=== PATIENT | male | born 1980 | race Caucasian/White ===

== ENCOUNTER 2017-10-22 14:51 | Emergency (ER) | payer MEDICARE, OTHER ==
[2017-10-22 17:10] LABS: GLUCOSE ISTAT 121 mg/dL (70-99); HEMATOCRIT ISTAT 40 % (37-52); POTASSIUM ISTAT 5.1 mmol/L (3.5-5.0); SODIUM ISTAT 137 mmol/L (135-145); TOT CO2 ISTAT 26 mmol/L (23-32)
== END 2017-10-22 17:35 | disposition home or self-care (01) ==
LOC: ER 14:51
DX: J06.9 Acute upper respiratory infection, unspecified (principal); B34.9 Viral infection, unspecified (principal); B97.89 Other viral agents as the cause of diseases classified elsewhere; E78.00 Pure hypercholesterolemia, unspecified; I12.0 Hypertensive chronic kidney disease with stage 5 chronic kidney disease or end stage renal disease; E11.22 Type 2 diabetes mellitus with diabetic chronic kidney disease; N18.6 End stage renal disease; Z99.2 Dependence on renal dialysis; Z91.041 Radiographic dye allergy status
CPT/HCPCS: 36415; 80047; 85014; 85018; 93005; 99283-25

== ENCOUNTER 2018-05-12 10:45 | Inpatient (IN) | payer MEDICARE, OTHER ==
[2018-05-12 11:05] LABS: POC GLUCOSE 201 mg/dL (70-99)
[2018-05-12] MEDS: ONDANSETRON PF 4 MG/2 ML VIAL. IV (11:54)
[2018-05-12] MEDS: fentaNYL PF VIAL 100 MCG/2 ML VIAL IV (11:56)
[2018-05-12 12:06] LABS: BASO # 0.1 x10^3/uL (0.0-0.2); BASO % 0 % (0-3); EOS # 0.2 x10^3/uL (0.0-0.7); EOS % 1 % (0-3); HEMATOCRIT 21.1 % (39.0-53.0); HEMOGLOBIN 7.2 g/dL (13.0-17.5); LYMPH # 1.2 x10^3/uL (1.0-4.8); LYMPH % 8 % (24-48); MEAN CORPUSCULAR HEMOGLOBIN 31 pg (25-35); MEAN CORPUSCULAR HGB CONC 34 g/dL (31-37); MEAN CORPUSCULAR VOLUME 92 fL (79-100); MONO % 6 % (0-9); NEUT # 13.4 x10^3uL (1.8-7.7); NEUT % 85 % (31-73); PLATELET COUNT 437 x10^3/uL (140-400); RED BLOOD COUNT 2.29 x10^6/uL (4.30-5.70); RED CELL DISTRIBUTION WIDTH 14.1 % (11.5-14.5); WHITE BLOOD COUNT 15.8 x10^3/uL (4.0-11.0)
[2018-05-12 12:11] LABS: ADD MAN DIFF? YES
[2018-05-12 12:19] LABS: ALBUMIN 2.3 g/dL (3.4-5.0); ALBUMIN/GLOBULIN RATIO 0.4 (1.0-1.7); ALK PHOS 106 U/L (46-116); ALT (SGPT) 30 U/L (16-63); ANION GAP 10 (6-14); AST (SGOT) 36 U/L (15-37); BLOOD UREA NITROGEN 23 mg/dL (8-26); BUN/CREATININE RATIO 5 (6-20); CALCIUM 8.7 mg/dL (8.5-10.1); CARBON DIOXIDE 32 mmol/L (21-32); CHLORIDE 94 mmol/L (98-107); CREATININE 4.9 mg/dL (0.7-1.3); GFR 13.6; GLUCOSE 232 mg/dL (70-99); SODIUM 136 mmol/L (136-145); TOTAL BILIRUBIN 0.7 mg/dL (0.2-1.0); TOTAL PROTEIN 8.3 g/dL (6.4-8.2)
[2018-05-12 12:23] LABS: POTASSIUM 2.4 mmol/L (3.5-5.1)
[2018-05-12 12:26] LABS: LACTIC ACID 0.8 mmol/L (0.4-2.0)
[2018-05-12] MEDS ORDERED: PIPERACILLIN/TAZOBACTAM 4.5 GM in IV NORMAL SALINE 100ML 100 ML IV (12:30)
[2018-05-12] MEDS ORDERED: MORPHINE SULFATE 4 MG/ML DISP.SYRIN. IV (12:30)
[2018-05-12] MEDS ORDERED: VANCOMYCIN 1GM IVPB FOR OMNI 250 ML IV (12:30)
[2018-05-12] MEDS ORDERED: ACETAMINOPHEN 325 MG TABLET. PO (12:30)
[2018-05-12] MEDS ORDERED: ONDANSETRON PF 4 MG/2 ML VIAL. IV ×2 (12:30→14:15)
[2018-05-12 12:31] LABS: % BANDS 17 % (0-9); % EOS 1 % (0-5); % LYMPHS 6 % (24-48); % MONOS 4 % (0-10); % SEGS 72 % (35-66); PLT ESTIMATE INCREASED (ADEQUATE)
[2018-05-12] MEDS ORDERED: POTASSIUM CHLORIDE 20 MEQ TABLET.ER. PO (12:45)
[2018-05-12 12:53] LABS: C-REACTIVE PROTEIN 444.8 mg/L (0-3.3)
[2018-05-12] MEDS: POTASSIUM CHLORIDE 10MEQ 100 ML IV ×4 (13:06→19:13)
[2018-05-12] MEDS: PIPERACILLIN/TAZOBACTAM 2.25 GM in IV NORMAL SALINE 50ML 50 ML IV ×2 (13:07→19:13)
[2018-05-12] MEDS ORDERED: PIP/TAZO PER PHARMACY MC (14:15)
[2018-05-12] MEDS ORDERED: hydrALAZINE 20 MG/ML VIAL. IVP (14:15)
[2018-05-12] MEDS ORDERED: DOCUSATE SODIUM 100 MG CAPSULE. PO (14:15)
[2018-05-12] MEDS ORDERED: VANCOMYCIN PER PHARMACY MC (14:30)
[2018-05-12] MEDS: VANCOMYCIN 2 GM in IV NORMAL SALINE 500ML BAG 500 ML IV (15:47)
[2018-05-12] MEDS: METOPROLOL TART IMMED RELEASE 50 MG TABLET. PO ×2 (15:53→21:56)
[2018-05-12] MEDS: ASPIRIN ENTERIC COATED 81 MG TABLET.DR. PO (15:53)
[2018-05-12] MEDS: LISINOPRIL 20 MG TABLET PO (15:53)
[2018-05-12 16:34] LABS: ADD MAN DIFF? NO
[2018-05-12 16:43] LABS: BASO # 0.1 x10^3/uL (0.0-0.2); BASO % 1 % (0-3); EOS # 0.2 x10^3/uL (0.0-0.7); EOS % 1 % (0-3); LYMPH # 1.3 x10^3/uL (1.0-4.8); LYMPH % 10 % (24-48); MEAN CORPUSCULAR HEMOGLOBIN 32 pg (25-35); MEAN CORPUSCULAR HGB CONC 35 g/dL (31-37); MEAN CORPUSCULAR VOLUME 92 fL (79-100); MONO % 7 % (0-9); NEUT # 10.9 x10^3uL (1.8-7.7); NEUT % 81 % (31-73); PLATELET COUNT 410 x10^3/uL (140-400); RED BLOOD COUNT 2.13 x10^6/uL (4.30-5.70); RED CELL DISTRIBUTION WIDTH 14.2 % (11.5-14.5); WHITE BLOOD COUNT 13.4 x10^3/uL (4.0-11.0)
[2018-05-12 16:48] LABS: HEMATOCRIT 19.7 % (39.0-53.0); HEMOGLOBIN 6.8 g/dL (13.0-17.5)
[2018-05-12] MEDS: INSULIN LISPRO 300 UNITS/3 ML INSULN.PEN. SQ ×2 (17:00→17:31)
[2018-05-12 17:32] LABS: POC GLUCOSE 143 mg/dL (70-99)
[2018-05-12] MEDS: POTASSIUM CHLORIDE 20 MEQ TABLET.ER. PO (17:56)
[2018-05-12 20:59] LABS: POC GLUCOSE 271 mg/dL (70-99)
[2018-05-12] MEDS ORDERED: ATORVASTATIN CALCIUM 10 MG TABLET. PO (21:00)
[2018-05-12] MEDS: ATORVASTATIN CALCIUM 10 MG TABLET. PO (21:56)
[2018-05-12] MEDS: HEPARIN PF for SUB-Q USE 5,000 UNIT/0.5 ML VIAL. SQ (22:00)
[2018-05-12] MEDS ORDERED: PIPERACILLIN/TAZOBACTAM 2.25 GM in IV NORMAL SALINE 50ML 50 ML IV (22:00)
[2018-05-12] MEDS: INSULIN GLARGINE 300 UNITS/3 ML INSULN.PEN. SQ (22:02)
[2018-05-12] MEDS: ACETAMINOPHEN 325 MG TABLET. PO (22:33)
[2018-05-12 23:59] LABS: IMMEDIATE SPIN CROSSMATCH 1 2
[2018-05-13 04:48] LABS: ADD MAN DIFF? NO
[2018-05-13 04:54] LABS: BASO # 0.1 x10^3/uL (0.0-0.2); BASO % 1 % (0-3); EOS # 0.3 x10^3/uL (0.0-0.7); EOS % 2 % (0-3); HEMATOCRIT 21.8 % (39.0-53.0); HEMOGLOBIN 7.4 g/dL (13.0-17.5); LYMPH # 1.6 x10^3/uL (1.0-4.8); LYMPH % 12 % (24-48); MEAN CORPUSCULAR HEMOGLOBIN 31 pg (25-35); MEAN CORPUSCULAR HGB CONC 34 g/dL (31-37); MEAN CORPUSCULAR VOLUME 91 fL (79-100); MONO # 0.9 x10^3/uL (0.0-1.1); MONO % 7 % (0-9); NEUT # 10.6 x10^3uL (1.8-7.7); NEUT % 78 % (31-73); PLATELET COUNT 442 x10^3/uL (140-400); RED BLOOD COUNT 2.38 x10^6/uL (4.30-5.70); RED CELL DISTRIBUTION WIDTH 15.1 % (11.5-14.5); WHITE BLOOD COUNT 13.6 x10^3/uL (4.0-11.0)
[2018-05-13 05:07] LABS: ANION GAP 9 (6-14); BLOOD UREA NITROGEN 37 mg/dL (8-26); CARBON DIOXIDE 32 mmol/L (21-32); CHLORIDE 96 mmol/L (98-107); GLUCOSE 233 mg/dL (70-99); POTASSIUM 3.1 mmol/L (3.5-5.1); SODIUM 137 mmol/L (136-145)
[2018-05-13] MEDS: HEPARIN PF for SUB-Q USE 5,000 UNIT/0.5 ML VIAL. SQ ×3 (05:22→22:23)
[2018-05-13 05:27] LABS: % SAT IRON 20 % (15-34); IRON,SERUM 30 ug/dL (65-175)
[2018-05-13 05:34] LABS: FOLATE > 20.00 ng/ml (3.2-20.0)
[2018-05-13 05:34] LABS: VITAMIN-B12 > 2000 pg/mL (247-911)
[2018-05-13] MEDS: PIPERACILLIN/TAZOBACTAM 2.25 GM in IV NORMAL SALINE 50ML 50 ML IV ×4 (05:53→18:02)
[2018-05-13 06:04] LABS: FERRITIN 3566 ng/mL (26-388)
[2018-05-13] MEDS ORDERED: PROPOFOL 0 ML IV (06:41)
[2018-05-13] MEDS ORDERED: LIDOCAINE 2% PF Vial for OR 5 ML VIAL. ×2 (06:41→06:45)
[2018-05-13] MEDS ORDERED: ONDANSETRON PF 4 MG/2 ML VIAL. IV ×2 (06:45→07:00)
[2018-05-13] MEDS ORDERED: PROCHLORPERAZINE 10 MG/2 ML VIAL. IV ×2 (06:45→07:00)
[2018-05-13] MEDS: INSULIN ASPART 100 UNIT/ML 10ML VIAL. SQ (06:45)
[2018-05-13] MEDS ORDERED: fentaNYL PF VIAL 250 MCG/5 ML VIAL (06:45)
[2018-05-13] MEDS ORDERED: fentaNYL PF VIAL 100 MCG/2 ML VIAL IV ×2 (06:45→07:00)
[2018-05-13] MEDS ORDERED: PROPOFOL 20 ML IV ×2 (06:45→07:29)
[2018-05-13] MEDS ORDERED: MORPHINE SULFATE 2 MG/ML DISP.SYRIN. IV ×2 (06:45→07:00)
[2018-05-13] MEDS: IV NORMAL SALINE 500ML BAG 500 ML IV (06:45)
[2018-05-13] MEDS ORDERED: MIDAZOLAM HCL/PF 2 MG/2 ML VIAL. (06:45)
[2018-05-13 06:53] LABS: POC GLUCOSE 217 mg/dL (70-99)
[2018-05-13] MEDS ORDERED: LIDOCAINE 1% PF 2 ML VIAL. ID ×2 (07:00)
[2018-05-13] MEDS: IV RINGERS,LACTATED 1000ML 1,000 ML IV ×2 (07:00)
[2018-05-13] MEDS ORDERED: ONDANSETRON PF 4 MG/2 ML VIAL. (07:29)
[2018-05-13] MEDS ORDERED: ePHEDrine PF IN SALINE 50 MG/5 ML DISP.SYRIN IV (07:30)
[2018-05-13] MEDS ORDERED: PHENYLEPHRINE in 0.9% NACL PF 1 MG/10 ML SYRINGE. IV (07:37)
[2018-05-13] MEDS: BACITRACIN 50,000 UNIT in IV NORMAL SALINE 500ML BAG 500 ML IRR (08:00)
[2018-05-13] MEDS: fentaNYL PF VIAL 100 MCG/2 ML VIAL IV ×2 (09:20→09:39)
[2018-05-13] MEDS: METOPROLOL TART IMMED RELEASE 50 MG TABLET. PO ×2 (10:18→22:17)
[2018-05-13] MEDS: LISINOPRIL 20 MG TABLET PO (10:19)
[2018-05-13] MEDS: ASPIRIN ENTERIC COATED 81 MG TABLET.DR. PO (10:19)
[2018-05-13 10:37] LABS: POC GLUCOSE 184 mg/dL (70-99)
[2018-05-13] MEDS: traMADol 50 MG TABLET PO ×2 (10:43→17:57)
[2018-05-13] MEDS: INSULIN LISPRO 300 UNITS/3 ML INSULN.PEN. SQ ×6 (10:47→17:11)
[2018-05-13 12:29] LABS: POC GLUCOSE 183 mg/dL (70-99)
[2018-05-13] MEDS: VANCOMYCIN PER PHARMACY MC ×2 (14:00)
[2018-05-13] MEDS ORDERED: POTASSIUM CHLORIDE 20 MEQ TABLET.ER. PO (15:30)
[2018-05-13] MEDS: POTASSIUM CHLORIDE 20 MEQ TABLET.ER. PO (15:48)
[2018-05-13 17:05] LABS: POC GLUCOSE 242 mg/dL (70-99)
[2018-05-13] MEDS: MORPHINE SULFATE 2 MG/ML DISP.SYRIN. IV (19:36)
[2018-05-13] MEDS: ATORVASTATIN CALCIUM 10 MG TABLET. PO (19:37)
[2018-05-13] MEDS: LACTOBACILLUS RHAMNOSUS GG 1 CAPSULE. PO (19:37)
[2018-05-13 22:08] LABS: POC GLUCOSE 235 mg/dL (70-99)
[2018-05-13 22:13] LABS: MRSA BY PCR Negative (Negative)
[2018-05-13] MEDS: INSULIN GLARGINE 300 UNITS/3 ML INSULN.PEN. SQ (22:22)
[2018-05-14] MEDS: PIPERACILLIN/TAZOBACTAM 2.25 GM in IV NORMAL SALINE 50ML 50 ML IV ×4 (00:49→18:27)
[2018-05-14 01:13] LABS: HEMOGLOBIN A1C 6.8 % (4.8-5.6)
[2018-05-14] MEDS: VANCOMYCIN RANDOM LEVEL. MC (06:00)
[2018-05-14] MEDS: HEPARIN PF for SUB-Q USE 5,000 UNIT/0.5 ML VIAL. SQ ×3 (06:01→21:34)
[2018-05-14] MEDS: INSULIN LISPRO 300 UNITS/3 ML INSULN.PEN. SQ ×7 (08:00→22:27)
[2018-05-14] MEDS ORDERED: POTASSIUM CHLORIDE 20 MEQ TABLET.ER. PO (08:00)
[2018-05-14 08:31] LABS: ADD MAN DIFF? NO
[2018-05-14] MEDS: LISINOPRIL 20 MG TABLET PO (08:35)
[2018-05-14] MEDS: ASPIRIN ENTERIC COATED 81 MG TABLET.DR. PO (08:35)
[2018-05-14] MEDS: METOPROLOL TART IMMED RELEASE 50 MG TABLET. PO ×2 (08:35→21:33)
[2018-05-14] MEDS: LACTOBACILLUS RHAMNOSUS GG 1 CAPSULE. PO ×2 (08:35→21:32)
[2018-05-14 08:45] LABS: BASO # 0.1 x10^3/uL (0.0-0.2); BASO % 1 % (0-3); EOS # 0.3 x10^3/uL (0.0-0.7); EOS % 3 % (0-3); HEMATOCRIT 24.3 % (39.0-53.0); HEMOGLOBIN 8.4 g/dL (13.0-17.5); LYMPH # 1.2 x10^3/uL (1.0-4.8); LYMPH % 11 % (24-48); MEAN CORPUSCULAR HEMOGLOBIN 32 pg (25-35); MEAN CORPUSCULAR HGB CONC 34 g/dL (31-37); MEAN CORPUSCULAR VOLUME 93 fL (79-100); MONO # 0.7 x10^3/uL (0.0-1.1); MONO % 6 % (0-9); NEUT # 8.8 x10^3uL (1.8-7.7); NEUT % 79 % (31-73); PLATELET COUNT 574 x10^3/uL (140-400); RED BLOOD COUNT 2.63 x10^6/uL (4.30-5.70); RED CELL DISTRIBUTION WIDTH 15.8 % (11.5-14.5); WHITE BLOOD COUNT 11.1 x10^3/uL (4.0-11.0)
[2018-05-14 08:46] LABS: POC GLUCOSE 257 mg/dL (70-99)
[2018-05-14 09:04] LABS: ALBUMIN 1.9 g/dL (3.4-5.0); ALBUMIN/GLOBULIN RATIO 0.3 (1.0-1.7); ALK PHOS 96 U/L (46-116); ALT (SGPT) 23 U/L (16-63); ANION GAP 14 (6-14); AST (SGOT) 30 U/L (15-37); BLOOD UREA NITROGEN 49 mg/dL (8-26); BUN/CREATININE RATIO 5 (6-20); CALCIUM 8.6 mg/dL (8.5-10.1); CARBON DIOXIDE 28 mmol/L (21-32); CHLORIDE 95 mmol/L (98-107); CREATININE 9.2 mg/dL (0.7-1.3); GFR 6.6; GLUCOSE 237 mg/dL (70-99); MAGNESIUM 2.1 mg/dL (1.8-2.4); POTASSIUM 3.6 mmol/L (3.5-5.1); SODIUM 137 mmol/L (136-145); TOTAL BILIRUBIN 0.7 mg/dL (0.2-1.0); TOTAL PROTEIN 7.6 g/dL (6.4-8.2)
[2018-05-14] MEDS ORDERED: IV NORMAL SALINE 1000ML BAG 1,000 ML IV ×2 (10:13)
[2018-05-14] MEDS ORDERED: DIALYSIS PATIENT. MC ×2 (10:15)
[2018-05-14] MEDS ORDERED: ALBUMIN HUMAN 25% 200 ML IV (10:15)
[2018-05-14 11:23] LABS: POC GLUCOSE 211 mg/dL (70-99)
[2018-05-14] MEDS: VANCOMYCIN PER PHARMACY MC (12:52)
[2018-05-14 14:18] LABS: POC GLUCOSE 134 mg/dL (70-99)
[2018-05-14] MEDS: SEVELAMER CARBONATE 800 MG TABLET. PO ×2 (14:19→17:05)
[2018-05-14] MEDS: FAMOTIDINE 20 MG TABLET. PO ×2 (14:19→21:32)
[2018-05-14] MEDS: DULoxetine HCL 30 MG CAPSULE.DR PO (14:19)
[2018-05-14] MEDS: FENOFIBRATE,MICRONIZED 134 MG CAPSULE PO (14:19)
[2018-05-14 20:18] LABS: POC GLUCOSE 239 mg/dL (70-99)
[2018-05-14 20:38] LABS: POC GLUCOSE 223 mg/dL (70-99)
[2018-05-14] MEDS ORDERED: CARVEDILOL 3.125 MG TABLET. PO (21:00)
[2018-05-14] MEDS: ATORVASTATIN CALCIUM 40 MG TABLET. PO (21:32)
[2018-05-14] MEDS: INSULIN GLARGINE 300 UNITS/3 ML INSULN.PEN. SQ (21:36)
[2018-05-15] MEDS: PIPERACILLIN/TAZOBACTAM 2.25 GM in IV NORMAL SALINE 50ML 50 ML IV ×5 (00:17→23:07)
[2018-05-15] MEDS: HEPARIN PF for SUB-Q USE 5,000 UNIT/0.5 ML VIAL. SQ ×3 (05:54→23:11)
[2018-05-15 07:15] LABS: POC GLUCOSE 203 mg/dL (70-99)
[2018-05-15] MEDS: VANCOMYCIN PER PHARMACY MC (08:23)
[2018-05-15] MEDS: SEVELAMER CARBONATE 800 MG TABLET. PO ×3 (08:39→17:09)
[2018-05-15] MEDS: FAMOTIDINE 20 MG TABLET. PO ×2 (08:40→20:19)
[2018-05-15] MEDS: METOPROLOL TART IMMED RELEASE 50 MG TABLET. PO ×2 (08:40→20:21)
[2018-05-15] MEDS: FENOFIBRATE,MICRONIZED 134 MG CAPSULE PO (08:40)
[2018-05-15] MEDS: ASPIRIN ENTERIC COATED 81 MG TABLET.DR. PO (08:40)
[2018-05-15] MEDS: DULoxetine HCL 30 MG CAPSULE.DR PO (08:40)
[2018-05-15] MEDS: LACTOBACILLUS RHAMNOSUS GG 1 CAPSULE. PO ×2 (08:40→20:19)
[2018-05-15] MEDS: LISINOPRIL 20 MG TABLET PO (08:41)
[2018-05-15] MEDS: INSULIN LISPRO 300 UNITS/3 ML INSULN.PEN. SQ ×6 (08:48→16:51)
[2018-05-15 09:16] LABS: FECAL OB PT NEGATIVE (NEG); NEG OBC FOB NEG; POS OBC FOB POS
[2018-05-15 11:26] LABS: POC GLUCOSE 219 mg/dL (70-99)
[2018-05-15 16:51] LABS: POC GLUCOSE 59 mg/dL (70-99)
[2018-05-15 17:14] LABS: POC GLUCOSE 99 mg/dL (70-99)
[2018-05-15 20:17] LABS: POC GLUCOSE 184 mg/dL (70-99)
[2018-05-15] MEDS: ATORVASTATIN CALCIUM 40 MG TABLET. PO (20:19)
[2018-05-15] MEDS: INSULIN GLARGINE 300 UNITS/3 ML INSULN.PEN. SQ (20:26)
[2018-05-16] MEDS: PIPERACILLIN/TAZOBACTAM 2.25 GM in IV NORMAL SALINE 50ML 50 ML IV ×4 (06:24→23:59)
[2018-05-16] MEDS: HEPARIN PF for SUB-Q USE 5,000 UNIT/0.5 ML VIAL. SQ ×3 (06:28→21:17)
[2018-05-16 07:42] LABS: POC GLUCOSE 145 mg/dL (70-99)
[2018-05-16] MEDS: INSULIN LISPRO 300 UNITS/3 ML INSULN.PEN. SQ ×6 (08:00→16:56)
[2018-05-16] MEDS: SEVELAMER CARBONATE 800 MG TABLET. PO ×3 (08:21→16:53)
[2018-05-16] MEDS: DULoxetine HCL 30 MG CAPSULE.DR PO (08:21)
[2018-05-16] MEDS: METOPROLOL TART IMMED RELEASE 50 MG TABLET. PO ×2 (08:23→21:12)
[2018-05-16] MEDS: FENOFIBRATE,MICRONIZED 134 MG CAPSULE PO (08:23)
[2018-05-16] MEDS: LACTOBACILLUS RHAMNOSUS GG 1 CAPSULE. PO ×2 (08:24→21:12)
[2018-05-16] MEDS: ASPIRIN ENTERIC COATED 81 MG TABLET.DR. PO (08:24)
[2018-05-16] MEDS: LISINOPRIL 20 MG TABLET PO (08:24)
[2018-05-16] MEDS: FAMOTIDINE 20 MG TABLET. PO ×2 (08:24→21:11)
[2018-05-16 11:15] LABS: POC GLUCOSE 141 mg/dL (70-99)
[2018-05-16 12:08] LABS: ADD MAN DIFF? NO
[2018-05-16 12:16] LABS: BASO # 0.1 x10^3/uL (0.0-0.2); BASO % 1 % (0-3); EOS # 0.4 x10^3/uL (0.0-0.7); EOS % 3 % (0-3); HEMATOCRIT 24.1 % (39.0-53.0); HEMOGLOBIN 8.3 g/dL (13.0-17.5); LYMPH # 1.7 x10^3/uL (1.0-4.8); LYMPH % 15 % (24-48); MEAN CORPUSCULAR HEMOGLOBIN 32 pg (25-35); MEAN CORPUSCULAR HGB CONC 35 g/dL (31-37); MEAN CORPUSCULAR VOLUME 93 fL (79-100); MONO # 0.8 x10^3/uL (0.0-1.1); MONO % 7 % (0-9); NEUT # 8.3 x10^3uL (1.8-7.7); NEUT % 73 % (31-73); PLATELET COUNT 701 x10^3/uL (140-400); RED CELL DISTRIBUTION WIDTH 15.6 % (11.5-14.5); WHITE BLOOD COUNT 11.3 x10^3/uL (4.0-11.0)
[2018-05-16 12:29] LABS: ANION GAP 13 (6-14); BLOOD UREA NITROGEN 49 mg/dL (8-26); CALCIUM 9.4 mg/dL (8.5-10.1); CARBON DIOXIDE 30 mmol/L (21-32); CHLORIDE 97 mmol/L (98-107); CREATININE 9.3 mg/dL (0.7-1.3); GFR 6.5; GLUCOSE 136 mg/dL (70-99); POTASSIUM 3.9 mmol/L (3.5-5.1); SODIUM 140 mmol/L (136-145)
[2018-05-16] MEDS: VANCOMYCIN PER PHARMACY MC (13:15)
[2018-05-16] MEDS: CITALOPRAM 10 MG TABLET. PO (16:16)
[2018-05-16 16:29] LABS: POC GLUCOSE 179 mg/dL (70-99)
[2018-05-16 20:46] LABS: POC GLUCOSE 139 mg/dL (70-99)
[2018-05-16] MEDS: ATORVASTATIN CALCIUM 40 MG TABLET. PO (21:12)
[2018-05-16] MEDS: INSULIN GLARGINE 300 UNITS/3 ML INSULN.PEN. SQ (21:18)
[2018-05-17] MEDS: PIPERACILLIN/TAZOBACTAM 2.25 GM in IV NORMAL SALINE 50ML 50 ML IV ×3 (05:47→18:24)
[2018-05-17] MEDS: HEPARIN PF for SUB-Q USE 5,000 UNIT/0.5 ML VIAL. SQ ×3 (05:53→22:06)
[2018-05-17] MEDS ORDERED: DIALYSIS PATIENT. MC ×2 (07:00)
[2018-05-17] MEDS: INSULIN LISPRO 300 UNITS/3 ML INSULN.PEN. SQ ×6 (07:30→17:11)
[2018-05-17 07:50] LABS: POC GLUCOSE 130 mg/dL (70-99)
[2018-05-17] MEDS: SEVELAMER CARBONATE 800 MG TABLET. PO ×3 (08:00→17:07)
[2018-05-17] MEDS: METOPROLOL TART IMMED RELEASE 50 MG TABLET. PO ×2 (09:00→21:50)
[2018-05-17] MEDS: LISINOPRIL 20 MG TABLET PO (09:00)
[2018-05-17 13:25] LABS: POC GLUCOSE 131 mg/dL (70-99)
[2018-05-17] MEDS: VANCOMYCIN PER PHARMACY MC (13:39)
[2018-05-17] MEDS: LACTOBACILLUS RHAMNOSUS GG 1 CAPSULE. PO ×2 (15:08→21:50)
[2018-05-17] MEDS: ASPIRIN ENTERIC COATED 81 MG TABLET.DR. PO (15:08)
[2018-05-17] MEDS: FAMOTIDINE 20 MG TABLET. PO ×2 (15:08→21:50)
[2018-05-17] MEDS: FENOFIBRATE,MICRONIZED 134 MG CAPSULE PO (15:09)
[2018-05-17] MEDS: DULoxetine HCL 30 MG CAPSULE.DR PO (15:10)
[2018-05-17] MEDS: CITALOPRAM 10 MG TABLET. PO (15:33)
[2018-05-17 16:07] LABS: POC GLUCOSE 185 mg/dL (70-99)
[2018-05-17] MEDS: VANCOMYCIN 500 MG in IV NORMAL SALINE 100ML 100 ML IV (17:06)
[2018-05-17 18:15] LABS: C DIFF BY PCR Negative (Negative)
[2018-05-17 21:09] LABS: POC GLUCOSE 155 mg/dL (70-99)
[2018-05-17] MEDS: ATORVASTATIN CALCIUM 40 MG TABLET. PO (21:50)
[2018-05-17] MEDS: INSULIN GLARGINE 300 UNITS/3 ML INSULN.PEN. SQ (22:04)
[2018-05-18] MEDS: PIPERACILLIN/TAZOBACTAM 2.25 GM in IV NORMAL SALINE 50ML 50 ML IV ×5 (00:27→23:44)
[2018-05-18] MEDS: HEPARIN PF for SUB-Q USE 5,000 UNIT/0.5 ML VIAL. SQ ×3 (05:52→21:36)
[2018-05-18 07:42] LABS: POC GLUCOSE 112 mg/dL (70-99)
[2018-05-18] MEDS: INSULIN LISPRO 300 UNITS/3 ML INSULN.PEN. SQ ×6 (08:00→18:10)
[2018-05-18] MEDS: FENOFIBRATE,MICRONIZED 134 MG CAPSULE PO (08:35)
[2018-05-18] MEDS: CITALOPRAM 10 MG TABLET. PO (08:35)
[2018-05-18] MEDS: FAMOTIDINE 20 MG TABLET. PO ×2 (08:35→21:27)
[2018-05-18] MEDS: ASPIRIN ENTERIC COATED 81 MG TABLET.DR. PO (08:36)
[2018-05-18] MEDS: LACTOBACILLUS RHAMNOSUS GG 1 CAPSULE. PO ×2 (08:36→21:28)
[2018-05-18] MEDS: DULoxetine HCL 30 MG CAPSULE.DR PO (08:36)
[2018-05-18] MEDS: SEVELAMER CARBONATE 800 MG TABLET. PO ×3 (08:36→17:56)
[2018-05-18] MEDS: LISINOPRIL 20 MG TABLET PO (08:37)
[2018-05-18] MEDS: METOPROLOL TART IMMED RELEASE 50 MG TABLET. PO ×2 (08:57→21:28)
[2018-05-18] MEDS: DEXTROSE 50% 25 GM / 50ML DISP.SYRIN. IV (11:32)
[2018-05-18] MEDS: GLUCAGON,HUMAN RECOMBINANT 1 MG/ML VIAL. IM (11:55)
[2018-05-18 12:43] LABS: POC GLUCOSE 102 mg/dL (70-99)
[2018-05-18 13:06] LABS: GLUCOSE 104 mg/dL (70-99)
[2018-05-18] MEDS: traMADol 50 MG TABLET PO (13:30)
[2018-05-18 16:00] LABS: POC GLUCOSE 43 mg/dL (70-99)
[2018-05-18 16:00] LABS: POC GLUCOSE 45 mg/dL (70-99)
[2018-05-18 21:03] LABS: POC GLUCOSE 253 mg/dL (70-99)
[2018-05-18 21:03] LABS: POC GLUCOSE 183 mg/dL (70-99)
[2018-05-18] MEDS: ATORVASTATIN CALCIUM 40 MG TABLET. PO (21:28)
[2018-05-18] MEDS: INSULIN GLARGINE 300 UNITS/3 ML INSULN.PEN. SQ (21:35)
[2018-05-19] MEDS: PIPERACILLIN/TAZOBACTAM 2.25 GM in IV NORMAL SALINE 50ML 50 ML IV ×4 (06:16→23:53)
[2018-05-19] MEDS: HEPARIN PF for SUB-Q USE 5,000 UNIT/0.5 ML VIAL. SQ ×3 (06:23→21:46)
[2018-05-19] MEDS: INSULIN LISPRO 300 UNITS/3 ML INSULN.PEN. SQ ×6 (07:30→17:00)
[2018-05-19] MEDS: FENOFIBRATE,MICRONIZED 134 MG CAPSULE PO (08:49)
[2018-05-19] MEDS: FAMOTIDINE 20 MG TABLET. PO ×2 (08:49→21:41)
[2018-05-19] MEDS: LISINOPRIL 20 MG TABLET PO (08:50)
[2018-05-19] MEDS: METOPROLOL TART IMMED RELEASE 50 MG TABLET. PO ×2 (08:50→21:46)
[2018-05-19] MEDS: SEVELAMER CARBONATE 800 MG TABLET. PO ×3 (08:50→17:00)
[2018-05-19] MEDS: CITALOPRAM 10 MG TABLET. PO (08:50)
[2018-05-19] MEDS: ASPIRIN ENTERIC COATED 81 MG TABLET.DR. PO (08:51)
[2018-05-19] MEDS: DULoxetine HCL 30 MG CAPSULE.DR PO (08:51)
[2018-05-19] MEDS: LACTOBACILLUS RHAMNOSUS GG 1 CAPSULE. PO ×2 (08:51→21:41)
[2018-05-19 09:38] LABS: ANION GAP 14 (6-14); BLOOD UREA NITROGEN 54 mg/dL (8-26); CALCIUM 9.6 mg/dL (8.5-10.1); CARBON DIOXIDE 27 mmol/L (21-32); CHLORIDE 102 mmol/L (98-107); CREATININE 9.2 mg/dL (0.7-1.3); GFR 6.6; GLUCOSE 86 mg/dL (70-99); POTASSIUM 3.9 mmol/L (3.5-5.1); SODIUM 143 mmol/L (136-145)
[2018-05-19] MEDS ORDERED: IV NORMAL SALINE 1000ML BAG 1,000 ML IV ×2 (10:06)
[2018-05-19] MEDS ORDERED: LABETALOL 20 MG/4 ML DISP.SYRIN. IVP (10:15)
[2018-05-19] MEDS ORDERED: DIALYSIS PATIENT. MC ×2 (10:15)
[2018-05-19 11:16] LABS: POC GLUCOSE 78 mg/dL (70-99)
[2018-05-19 11:16] LABS: POC GLUCOSE 90 mg/dL (70-99)
[2018-05-19 18:57] LABS: POC GLUCOSE 144 mg/dL (70-99)
[2018-05-19] MEDS: ATORVASTATIN CALCIUM 40 MG TABLET. PO (21:41)
[2018-05-19] MEDS: INSULIN GLARGINE 300 UNITS/3 ML INSULN.PEN. SQ (21:45)
[2018-05-20] MEDS: PIPERACILLIN/TAZOBACTAM 2.25 GM in IV NORMAL SALINE 50ML 50 ML IV ×2 (05:58→11:55)
[2018-05-20] MEDS: HEPARIN PF for SUB-Q USE 5,000 UNIT/0.5 ML VIAL. SQ ×2 (06:07→14:00)
[2018-05-20 06:28] LABS: POC GLUCOSE 236 mg/dL (70-99)
[2018-05-20 07:50] LABS: POC GLUCOSE 117 mg/dL (70-99)
[2018-05-20] MEDS: INSULIN LISPRO 300 UNITS/3 ML INSULN.PEN. SQ ×4 (08:00→12:01)
[2018-05-20] MEDS: DULoxetine HCL 30 MG CAPSULE.DR PO (08:18)
[2018-05-20] MEDS: SEVELAMER CARBONATE 800 MG TABLET. PO ×2 (08:18→11:55)
[2018-05-20] MEDS: FENOFIBRATE,MICRONIZED 134 MG CAPSULE PO (08:18)
[2018-05-20] MEDS: LISINOPRIL 20 MG TABLET PO (08:18)
[2018-05-20] MEDS: CITALOPRAM 10 MG TABLET. PO (08:19)
[2018-05-20] MEDS: METOPROLOL TART IMMED RELEASE 50 MG TABLET. PO (08:19)
[2018-05-20] MEDS: ASPIRIN ENTERIC COATED 81 MG TABLET.DR. PO (08:19)
[2018-05-20] MEDS: FAMOTIDINE 20 MG TABLET. PO (08:19)
[2018-05-20] MEDS: LACTOBACILLUS RHAMNOSUS GG 1 CAPSULE. PO (08:19)
[2018-05-20 11:20] LABS: POC GLUCOSE 133 mg/dL (70-99)
[2018-05-20 23:13] LABS: MRSA BY PCR Negative (Negative)
[2018-05-21] MEDS ORDERED: ERGOCALCIFEROL (VITAMIN D2) 50,000 UNIT CAPSULE. PO (09:00)
== END 2018-05-20 14:10 | DRG 853 ==
LOC: 5 SOUTH 13:42 → ER 10:45 → 5 SOUTH 12:19
PROVIDERS: Internal Medicine
PROC: 30233N1 Transfusion of Nonautologous Red Blood Cells into Peripheral Vein, Percutaneous Approach (ICD-10-PCS; principal; 2018-05-13 06:59)
PROC: 5A1D70Z Performance of Urinary Filtration, Intermittent, Less than 6 Hours Per Day (ICD-10-PCS; 2018-05-13 06:59)
PROC: 5A1D70Z Performance of Urinary Filtration, Intermittent, Less than 6 Hours Per Day (ICD-10-PCS; 2018-05-13 06:59)
PROC: 5A1D70Z Performance of Urinary Filtration, Intermittent, Less than 6 Hours Per Day (ICD-10-PCS; 2018-05-13 06:59)
PROC: 0Y6J0Z3 Detachment at Left Lower Leg, Low, Open Approach (ICD-10-PCS; 2018-05-13 06:59)
DX: A41.9 Sepsis, unspecified organism (principal); N18.6 End stage renal disease; A48.0 Gas gangrene; M86.9 Osteomyelitis, unspecified; E44.0 Moderate protein-calorie malnutrition; I12.0 Hypertensive chronic kidney disease with stage 5 chronic kidney disease or end stage renal disease; E78.00 Pure hypercholesterolemia, unspecified; E10.22 Type 1 diabetes mellitus with diabetic chronic kidney disease; E10.621 Type 1 diabetes mellitus with foot ulcer; E10.628 Type 1 diabetes mellitus with other skin complications; E10.65 Type 1 diabetes mellitus with hyperglycemia; E10.69 Type 1 diabetes mellitus with other specified complication; Z99.2 Dependence on renal dialysis; E87.6 Hypokalemia; Z82.49 Family history of ischemic heart disease and other diseases of the circulatory system; Z89.422 Acquired absence of other left toe(s); E78.5 Hyperlipidemia, unspecified; D63.1 Anemia in chronic kidney disease; L08.9 Local infection of the skin and subcutaneous tissue, unspecified; E10.610 Type 1 diabetes mellitus with diabetic neuropathic arthropathy; Z89.512 Acquired absence of left leg below knee; E10.51 Type 1 diabetes mellitus with diabetic peripheral angiopathy without gangrene; F32.9 Major depressive disorder, single episode, unspecified; L97.529 Non-pressure chronic ulcer of other part of left foot with unspecified severity; Z79.4 Long term (current) use of insulin; Z79.82 Long term (current) use of aspirin; Z79.899 Other long term (current) drug therapy; Z89.612 Acquired absence of left leg above knee; Z68.27 Body mass index [BMI] 27.0-27.9, adult
CPT/HCPCS: 36415; 73610; 73630; 80048; 80053; 80202; 82274; 82607; 82728; 82746; 82947; 82962; 83036; 83540; 83550; 83605; 83735; 85007; 85025; 86140; 86850; 86900; 86901; 86920; 87040; 87205; 87324; 87641; 88307; 88311; 96365; 96375; 97110-GO; 97110-GP; 97116-GP; 97162-GP; 97166-GO; 97530-GO; 97530-GP; 97535-GO; 99285; 99285-25; A7015; J1610; J1815; J2001; J2250; J2270; J2370; J2405; J2543; J2704; J3010; J3370; J3480; J3490; J7040; J7042; P9016

== ENCOUNTER 2018-12-03 09:35 | Inpatient (IN) | payer MEDICARE, MEDICAID ==
[~2018-12-03] VITALS: Ht 180.3 cm; Wt 92.1 kg
[~2018-12-03 09:35] MED LIST: ASPI-482 PO; ATOR10TA PO; ATOR10TA60 PO; ATOR40TA59 PO; CARV3.1210 PO; DULO60CA6 PO; ERGO500027 PO; FAMO20TA5 PO; FENO145T30 PO; FOLI1CAP5 PO; INSU100C4 SQ; INSU100I17 SQ; INSU100V13 SQ; LISI-130 PO; LISI-334 PO; LISI10TA2 PO; METO25TA4 PO; METO50TA6 PO; SEVE800T9 PO; SULF1TAB24 PO; TAMS0.4C2 PO
--- NOTE | 2018-12-03 09:53 | PHYS DOC ---
Past Medical History Past Medical History: Diabetes-Type I, High Cholesterol, Hypertension, Renal Failure Past Surgical History: Other Additional Past Surgical Histo: left toe amputation,L ARM FISTULA Alcohol Use: Occasionally Drug Use: None Adult General Chief Complaint Chief Complaint: CHEST PAIN HPI HPI Patient is a 38-year-old male who presents with complaint of midsternal and left -sided chest pain that started yesterday and progressively has just gotten worse. He states the pain has been intermittent in nature. He states that pain had started a couple of hours ago while he was in dialysis and just did not get better. He describes pain as sharp and stabbing in nature and states the pain is worsened with deep breathing. He states that nothing improves the pain. He rates pain at an 8 out of 10. He denies any nausea, vomiting or diaphoresis. Pain started while he was at rest. Review of Systems Review of Systems Constitutional: Denies fever or chills [] Respiratory: Denies cough or shortness of breath [] Cardiovascular: No additional information not addressed in HPI [] GI: Denies abdominal pain, nausea, vomiting, or diarrhea [] Musculoskeletal: Denies back pain or joint pain [] Integument: Denies rash or skin lesions [] All other systems were reviewed and found to be within normal limits, except as documented in this note. Current Medications Current Medications Current Medications Medications (Trade) Dose Ordered Sig/Allison Start Time Stop Time Status Last Admin Dose Admin Aspirin (Children'S Aspirin) 324 mg 1X ONCE 12/03/18 10:15 12/03/18 10:16 DC Morphine Sulfate (Morphine Sulfate) 2 mg PRN Q15MIN PRN 12/03/18 10:00 12/03/18 19:00 Nitroglycerin (Nitrostat) 0.4 mg PRN Q5MIN PRN 12/03/18 10:00 12/04/18 09:59 Allergies Allergies Allergies Coded Allergies Type Severity Reaction Last Updated Verified No Known Drug Allergies 10/23/18 No Physical Exam Physical Exam Constitutional: Well developed, well nourished, no acute distress, non-toxic appearance. [] HENT: Normocephalic, atraumatic, bilateral external ears normal, oropharynx moist, no oral exudates, nose normal. [] Eyes: PERRLA, EOMI, conjunctiva normal, no discharge. [] Neck: Normal range of motion, no tenderness, supple, no stridor. [] Cardiovascular: Regular rate and rhythm [] Lungs & Thorax: Bilateral breath sounds clear to auscultation [] Abdomen: Bowel sounds normal, soft, no tenderness. [] Skin: Warm, dry, no erythema, no rash. [] Extremities: No tenderness, no cyanosis, no clubbing, ROM intact, no edema. [] Neurologic: Alert and oriented X 3, no focal deficits noted. [] Current Patient Data Vital Signs Vital Signs Date Time Temp Pulse Resp B/P (MAP) Pulse Ox O2 Delivery O2 Flow Rate FiO2 12/03/18 13:00 82 16 106/57 (73) 99 Room Air 12/03/18 09:35 98.8 98.8 Lab Values Laboratory Tests Test 12/03/18 10:30 12/03/18 10:40 Glucose (Fingerstick) 287 mg/dL (70-99) H White Blood Count 5.9 x10^3/uL (4.0-11.0) Red Blood Count 3.56 x10^6/uL (4.30-5.70) L Hemoglobin 11.4 g/dL (13.0-17.5) L Hematocrit 34.5 % (39.0-53.0) L Mean Corpuscular Volume 97 fL (79-100) Mean Corpuscular Hemoglobin 32 pg (25-35) Mean Corpuscular Hemoglobin Concent 33 g/dL (31-37) Red Cell Distribution Width 14.9 % (11.5-14.5) H Platelet Count 247 x10^3/uL (140-400) Neutrophils (%) (Auto) 65 % (31-73) Lymphocytes (%) (Auto) 23 % (24-48) L Monocytes (%) (Auto) 8 % (0-9) Eosinophils (%) (Auto) 3 % (0-3) Basophils (%) (Auto) 1 % (0-3) Neutrophils # (Auto) 3.8 x10^3uL (1.8-7.7) Lymphocytes # (Auto) 1.3 x10^3/uL (1.0-4.8) Monocytes # (Auto) 0.5 x10^3/uL (0.0-1.1) Eosinophils # (Auto) 0.2 x10^3/uL (0.0-0.7) Basophils # (Auto) 0.1 x10^3/uL (0.0-0.2) Sodium Level 136 mmol/L (136-145) Potassium Level 3.7 mmol/L (3.5-5.1) Chloride Level 96 mmol/L (98-107) L Carbon Dioxide Level 29 mmol/L (21-32) Anion Gap 11 (6-14) Blood Urea Nitrogen 36 mg/dL (8-26) H Creatinine 5.0 mg/dL (0.7-1.3) H Estimated GFR (Cockcroft-Gault) 13.2 BUN/Creatinine Ratio 7 (6-20) Glucose Level 286 mg/dL (70-99) H Calcium Level 9.5 mg/dL (8.5-10.1) Phosphorus Level 4.1 mg/dL (2.6-4.7) Magnesium Level 2.3 mg/dL (1.8-2.4) Total Bilirubin 0.4 mg/dL (0.2-1.0) Aspartate Amino Transferase (AST) 33 U/L (15-37) Alanine Aminotransferase (ALT) 11 U/L (16-63) L Alkaline Phosphatase 157 U/L (46-116) H Troponin I Quantitative 0.032 ng/mL (0.000-0.055) KN-Lfz-B-Type Natriuretic Peptide 1149 pg/mL (0-124) H Total Protein 7.6 g/dL (6.4-8.2) Albumin 3.4 g/dL (3.4-5.0) Albumin/Globulin Ratio 0.8 (1.0-1.7) L Lipase 662 U/L (73-393) H Laboratory Tests 12/03/18 10:40 Laboratory Tests 12/03/18 10:40 EKG EKG [] Interpretation Time: EKG demonstrates regular rate and rhythm with rate of 83. Radiology/Procedures Radiology/Procedures [] Impressions: PORTABLE CHEST 1V History: Chest pain COMPARISON: April 14, 2016 image without report FINDINGS: Heart size is not enlarged. No pneumothorax, infiltrates or pleural effusion. There is a left endovascular stent, paralleling the left clavicle. IMPRESSION: No acute infiltrate identified. Electronically signed by: Deniz Bird MD (12/03/2018 10:52 AM) [facility] Course & Med Decision Making Course & Med Decision Making Pertinent Labs and Imaging studies reviewed. (See chart for details) [] Dragon Disclaimer Dragon Disclaimer This electronic medical record was generated, in whole or in part, using a voice recognition dictation system. Departure Departure Impression: Primary Impression: Chest pain Disposition: HOME, SELF-CARE Admitting Physician: Other Condition: IMPROVED (Dr. Newman) Referrals: UNKNOWN PCP NAME (PCP) Problem Qualifiers Primary Impression: Chest pain Chest pain type: unspecified Qualified Codes: R07.9 - Chest pain, unspecified KELLI PRINCE Jr. DO Dec 03, 2018 09:53
[2018-12-03] MEDS ORDERED: MORPHINE SULFATE 4 MG/ML VIAL. IV/SQ PRN (10:00)
[2018-12-03] MEDS ORDERED: NITROGLYCERIN SUBLINGUAL 0.4 MG BOTTLE OF 25. SL PRN ×2 (10:00→15:00)
[2018-12-03] MEDS ORDERED: ASPIRIN CHEWABLE 81 MG TABLET. PO ONE (10:15)
--- NOTE | 2018-12-03 10:57 | RAD ---
PORTABLE CHEST 1V History: Chest pain COMPARISON: April 14, 2016 image without report FINDINGS: Heart size is not enlarged. No pneumothorax, infiltrates or pleural effusion. There is a left endovascular stent, paralleling the left clavicle. IMPRESSION: No acute infiltrate identified. Electronically signed by: eDniz Bird MD (12/03/2018 10:52 AM) [facility]
[2018-12-03 10:58] LABS: BASO # 0.1 x10^3/uL (0.0-0.2); BASO % 1 % (0-3); EOS # 0.2 x10^3/uL (0.0-0.7); EOS % 3 % (0-3); HEMATOCRIT 34.5 % (39.0-53.0); HEMOGLOBIN 11.4 g/dL (13.0-17.5); LYMPH # 1.3 x10^3/uL (1.0-4.8); LYMPH % 23 % (24-48); MEAN CORPUSCULAR HEMOGLOBIN 32 pg (25-35); MEAN CORPUSCULAR HGB CONC 33 g/dL (31-37); MEAN CORPUSCULAR VOLUME 97 fL (79-100); MONO # 0.5 x10^3/uL (0.0-1.1); MONO % 8 % (0-9); NEUT # 3.8 x10^3uL (1.8-7.7); NEUT % 65 % (31-73); PLATELET COUNT 247 x10^3/uL (140-400); RED BLOOD COUNT 3.56 x10^6/uL (4.30-5.70); RED CELL DISTRIBUTION WIDTH 14.9 % (11.5-14.5); WHITE BLOOD COUNT 5.9 x10^3/uL (4.0-11.0)
[2018-12-03 11:10] LABS: CALCIUM 9.5 mg/dL (8.5-10.1); GFR 13.2; POTASSIUM 3.7 mmol/L (3.5-5.1)
[2018-12-03 11:15] LABS: ALBUMIN 3.4 g/dL (3.4-5.0); ALBUMIN/GLOBULIN RATIO 0.8 (1.0-1.7); MAGNESIUM 2.3 mg/dL (1.8-2.4); PHOSPHORUS 4.1 mg/dL (2.6-4.7); TOTAL BILIRUBIN 0.4 mg/dL (0.2-1.0); TOTAL PROTEIN 7.6 g/dL (6.4-8.2)
[2018-12-03] MEDS ORDERED: ONDANSETRON PF 4 MG/2 ML VIAL. IV PRN ×2 (14:30→15:00)
[2018-12-03] MEDS ORDERED: MORPHINE SULFATE 4 MG/ML VIAL. IV PRN ×2 (14:30→15:00)
[2018-12-03] MEDS ORDERED: MAG HYDROX/ALUMINUM HYD/SIMETH 30 ML ORAL.SUSP PO PRN (15:00)
[2018-12-03] MEDS ORDERED: LACTULOSE 20 GM/30 ML SOLUTION. PO PRN (15:00)
[2018-12-03] MEDS ORDERED: ZOLPIDEM 5 MG TABLET. PO PRN (15:00)
[2018-12-03] MEDS ORDERED: ACETAMINOPHEN 325 MG TABLET. PO PRN (15:00)
[2018-12-03] MEDS ORDERED: C.DIFF MED SCREEN BY RX. MC ONE (16:30)
[2018-12-03] MEDS ORDERED: FOLI1CAP10 PO (16:51)
[2018-12-03 16:52] VITALS: BP 109/68
[2018-12-03] MEDS ORDERED: INSU100V13 SQ (17:28)
[2018-12-03] MEDS: ceFAZolin SODIUM 1 GM in IV DEXTROSE 5% 50 ML IV SCH (17:57)
[2018-12-03] MEDS: SEVELAMER CARBONATE 800 MG TABLET. PO SCH (18:01)
[2018-12-03] MEDS: CARVEDILOL 3.125 MG TABLET. PO SCH (18:01)
[2018-12-03] MEDS: INSULIN LISPRO 300 UNITS/3 ML INSULN.PEN. SQ SCH (18:06)
--- NOTE | 2018-12-03 18:48 | PDOC1 ---
History and Physical Date of Admission Date of Admission 12/03/2017 Identification/Chief Complaint Chief Complaint my chest hurts Problems: (1) Chest pain (2) ESRD on hemodialysis (3) DKA, type 2 Source Source: Chart review, Patient History of Present Illness History of Present Illness Patient is a 38-year-old gentleman with past medical history of hypertension diabetes who consequently ended up in end-stage renal disease and now is on dialysis. Patient was in his usual state of health until the day prior to his admission when he started complaining of chest discomfort or his precordial area the patient denies radiation to the neck or the arm or jaw. The patient denies sensation of impending doom. No diaphoresis no nausea or vomiting was associated with the symptoms. The episode lasted less than 20 minutes. He was not exerting when the chest pain started. He was sitting watching TV when this started. It has been on and off over the last couple days and today after his dialysis treatment he decided to come to the emergency department for further evaluation treatment. Workup so far is negative. The patient denies history of coronary artery disease no heart attacks in the past mobilities were asked to admit the patient for cardiac rule out as per ER physician. At the time my note the patient is in no acute distress medically the patient is stable vital signs stable and more or less at baseline compared to previous chart. All concerns were addressed to the best of my abilities and plan of care explained to the patient in detail Past Medical History Cardiovascular: HTN Renal/: Chronic renal insuff Endocrine: Diabetes Family History Family History: Hypertension, Kidney Disease Social History ALCOHOL: none Drugs: None Current Problem List Problem List Problems Medical Problems: (1) Chest pain Status: Acute Current Medications Current Medications Current Medications Medications (Trade) Dose Ordered Sig/Allison Start Time Stop Time Status Last Admin Dose Admin Acetaminophen (Tylenol) 650 mg PRN Q6HRS PRN 12/03/18 15:00 Al Hydroxide/Mg Hydroxide (Mylanta Plus Xs) 30 ml PRN Q4HRS PRN 12/03/18 15:00 Aspirin (Children'S Aspirin) 81 mg [id number] 12/04/18 08:00 Aspirin (Ecotrin) 81 mg DAILY 12/04/18 09:00 UNV Atorvastatin Calcium (Lipitor) 40 mg HS 12/03/18 21:00 Carvedilol (Coreg) 3.125 mg BIDWMEALS 12/03/18 18:00 12/03/18 18:01 3.125 MG Cefazolin Sodium 1 gm/Dextrose 50 ml @ 100 mls/hr Q24H 12/03/18 18:00 Duloxetine HCl (Cymbalta) 60 mg DAILY 12/04/18 09:00 Ergocalciferol (Vitamin D2) 50,000 unit WEEKLY 12/10/18 09:00 Famotidine (Pepcid) 10 mg BID 12/03/18 21:00 Fenofibrate (Lofibra) 134 mg DAILY 12/04/18 09:00 Heparin Sodium (Porcine) (Heparin Sodium) 5,000 unit Q12HR 12/03/18 21:00 Insulin Glargine (Lantus) 10 units QHS 12/03/18 21:00 Insulin Human Lispro (HumaLOG) 6 units TIDWMEALS 12/03/18 18:00 12/03/18 18:06 6 UNITS Lactulose (Lactulose) 20 gm PRN Q12HR PRN 12/03/18 15:00 Lisinopril (Prinivil) 10 mg QSU 12/04/18 16:00 Morphine Sulfate (Morphine Sulfate) 1 mg PRN Q10MIN PRN 12/03/18 15:00 Nitroglycerin (Nitrostat) 0.4 mg PRN Q5MIN PRN 12/03/18 15:00 Ondansetron HCl (Zofran) 4 mg PRN Q6HRS PRN 12/03/18 15:00 Pharmacy Consult (C.diff Med Screen By Rx) 1 each 1X ONCE 12/03/18 16:30 12/03/18 16:31 DC Senna/Docusate Sodium (Senna Plus) 1 tab BID 12/03/18 21:00 Sevelamer Carbonate (Renvela) 1,600 mg TIDWMEALS 12/03/18 18:00 12/03/18 18:01 1,600 MG Tamsulosin HCl (Flomax) 0.4 mg HS 12/03/18 21:00 Vitamin B Complex/ Vitamin C (Mandie-Yissel) 1 tab DAILY 12/04/18 09:00 Zolpidem Tartrate (Ambien) 5 mg PRN QHS PRN 12/03/18 15:00 Allergies Allergies Allergies Coded Allergies Type Severity Reaction Last Updated Verified No Known Drug Allergies 10/23/18 No ROS Review of System CONSTITUTIONAL: No fever or chills EYES: No recent changes SKIN: No rash or itching CARDIOVASCULAR: + chest pain, no syncope, palpitations, or edema RESPIRATORY: No SOB or cough GASTROINTESTINAL: No nausea, vomiting or abdominal pain NEUROLOGICAL: No headaches or weakness ENDOCRINE: No cold or heat intolerance GENITOURINARY: No urgency or frequency of urination MUSCULOSKELETAL: No back pain or joint pain LYMPHATICS: No enlarged lymph nodes PSYCHIATRIC: No anxiety or depression Physical Exam Physical Exam GEN.: No apparent distress. Alert and oriented. HEENT: Head is normocephalic, atraumatic NECK: Supple. LUNGS: Clear to auscultation. HEART: RRR, S1, S2 present. Peripheral pulses intact ABDOMEN: Soft, nontender. Positive bowel sounds. EXTREMITIES: Without any cyanosis. NEUROLOGIC: Normal speech, normal tone PSYCHIATRIC: Normal affect, normal mood. SKIN: No ulcerations Vitals Vitals Vital Signs Date Time Temp Pulse Resp B/P (MAP) Pulse Ox O2 Delivery O2 Flow Rate FiO2 12/03/18 18:01 89 109/68 12/03/18 16:52 98.4 16 98 Room Air 98.4 Labs Labs Laboratory Tests Test 12/03/18 10:30 12/03/18 10:40 12/03/18 16:58 12/03/18 17:30 Glucose (Fingerstick) 287 mg/dL (70-99) 292 mg/dL (70-99) White Blood Count 5.9 x10^3/uL (4.0-11.0) Red Blood Count 3.56 x10^6/uL (4.30-5.70) Hemoglobin 11.4 g/dL (13.0-17.5) Hematocrit 34.5 % (39.0-53.0) Mean Corpuscular Volume 97 fL (79-100) Mean Corpuscular Hemoglobin 32 pg (25-35) Mean Corpuscular Hemoglobin Concent 33 g/dL (31-37) Red Cell Distribution Width 14.9 % (11.5-14.5) Platelet Count 247 x10^3/uL (140-400) Neutrophils (%) (Auto) 65 % (31-73) Lymphocytes (%) (Auto) 23 % (24-48) Monocytes (%) (Auto) 8 % (0-9) Eosinophils (%) (Auto) 3 % (0-3) Basophils (%) (Auto) 1 % (0-3) Neutrophils # (Auto) 3.8 x10^3uL (1.8-7.7) Lymphocytes # (Auto) 1.3 x10^3/uL (1.0-4.8) Monocytes # (Auto) 0.5 x10^3/uL (0.0-1.1) Eosinophils # (Auto) 0.2 x10^3/uL (0.0-0.7) Basophils # (Auto) 0.1 x10^3/uL (0.0-0.2) Sodium Level 136 mmol/L (136-145) Potassium Level 3.7 mmol/L (3.5-5.1) Chloride Level 96 mmol/L (98-107) Carbon Dioxide Level 29 mmol/L (21-32) Anion Gap 11 (6-14) Blood Urea Nitrogen 36 mg/dL (8-26) Creatinine 5.0 mg/dL (0.7-1.3) Estimated GFR (Cockcroft-Gault) 13.2 BUN/Creatinine Ratio 7 (6-20) Glucose Level 286 mg/dL (70-99) Calcium Level 9.5 mg/dL (8.5-10.1) Phosphorus Level 4.1 mg/dL (2.6-4.7) Magnesium Level 2.3 mg/dL (1.8-2.4) Total Bilirubin 0.4 mg/dL (0.2-1.0) Aspartate Amino Transf (AST/SGOT) 33 U/L (15-37) Alanine Aminotransferase (ALT/SGPT) 11 U/L (16-63) Alkaline Phosphatase 157 U/L (46-116) Troponin I Quantitative 0.032 ng/mL (0.000-0.055) 0.021 ng/mL (0.000-0.055) FA-Efb-L-Type Natriuretic Peptide 1149 pg/mL (0-124) Total Protein 7.6 g/dL (6.4-8.2) Albumin 3.4 g/dL (3.4-5.0) Albumin/Globulin Ratio 0.8 (1.0-1.7) Lipase 662 U/L (73-393) Laboratory Tests Test 12/03/18 10:30 12/03/18 10:40 12/03/18 16:58 12/03/18 17:30 Glucose (Fingerstick) 287 mg/dL (70-99) 292 mg/dL (70-99) White Blood Count 5.9 x10^3/uL (4.0-11.0) Red Blood Count 3.56 x10^6/uL (4.30-5.70) Hemoglobin 11.4 g/dL (13.0-17.5) Hematocrit 34.5 % (39.0-53.0) Mean Corpuscular Volume 97 fL (79-100) Mean Corpuscular Hemoglobin 32 pg (25-35) Mean Corpuscular Hemoglobin Concent 33 g/dL (31-37) Red Cell Distribution Width 14.9 % (11.5-14.5) Platelet Count 247 x10^3/uL (140-400) Neutrophils (%) (Auto) 65 % (31-73) Lymphocytes (%) (Auto) 23 % (24-48) Monocytes (%) (Auto) 8 % (0-9) Eosinophils (%) (Auto) 3 % (0-3) Basophils (%) (Auto) 1 % (0-3) Neutrophils # (Auto) 3.8 x10^3uL (1.8-7.7) Lymphocytes # (Auto) 1.3 x10^3/uL (1.0-4.8) Monocytes # (Auto) 0.5 x10^3/uL (0.0-1.1) Eosinophils # (Auto) 0.2 x10^3/uL (0.0-0.7) Basophils # (Auto) 0.1 x10^3/uL (0.0-0.2) Sodium Level 136 mmol/L (136-145) Potassium Level 3.7 mmol/L (3.5-5.1) Chloride Level 96 mmol/L (98-107) Carbon Dioxide Level 29 mmol/L (21-32) Anion Gap 11 (6-14) Blood Urea Nitrogen 36 mg/dL (8-26) Creatinine 5.0 mg/dL (0.7-1.3) Estimated GFR (Cockcroft-Gault) 13.2 BUN/Creatinine Ratio 7 (6-20) Glucose Level 286 mg/dL (70-99) Calcium Level 9.5 mg/dL (8.5-10.1) Phosphorus Level 4.1 mg/dL (2.6-4.7) Magnesium Level 2.3 mg/dL (1.8-2.4) Total Bilirubin 0.4 mg/dL (0.2-1.0) Aspartate Amino Transf (AST/SGOT) 33 U/L (15-37) Alanine Aminotransferase (ALT/SGPT) 11 U/L (16-63) Alkaline Phosphatase 157 U/L (46-116) Troponin I Quantitative 0.032 ng/mL (0.000-0.055) 0.021 ng/mL (0.000-0.055) NY-Hzt-M-Type Natriuretic Peptide 1149 pg/mL (0-124) Total Protein 7.6 g/dL (6.4-8.2) Albumin 3.4 g/dL (3.4-5.0) Albumin/Globulin Ratio 0.8 (1.0-1.7) Lipase 662 U/L (73-393) Images Images Signed PATIENT: MARY RUIZ ACCOUNT: [id number] : 1980 LOCATION: ER AGE: 38 SEX: M EXAM STATUS: PRE ER ORD. PHYSICIAN: KELLI PRINCE Jr. DO REASON: chest pain PROCEDURE: PORTABLE CHEST 1V PORTABLE CHEST 1V History: Chest pain COMPARISON: April 14, 2016 image without report FINDINGS: Heart size is not enlarged. No pneumothorax, infiltrates or pleural effusion. There is a left endovascular stent, paralleling the left clavicle. IMPRESSION: No acute infiltrate identified. Electronically signed by: Deniz Bird MD (12/03/2018 10:52 AM) [facility] DICTATED and SIGNED BY: DENIZ BIRD MD DATE: 12/03/18 1051 VTE Prophylaxis Ordered VTE Prophylaxis Devices: No VTE Pharmacological Prophylaxi: Yes Assessment/Plan Assessment/Plan chest pain rule out acs, atypical in nature htn well controlled dm type 2 insulin requiring ESRD on HD on -- Wed Plan: follow troponin lipid panel in am consult cardiology further reocmmendations based on clinical course. DVT prophylaxis: heparin Problem Qualifiers (1) Chest pain: Chest pain type: unspecified Qualified Codes: R07.9 - Chest pain, unspecified SAMEER WHITE MD Dec 03, 2018 18:48
--- NOTE | 2018-12-03 18:51 | NUR ---
Patient was just discharged last month on IV antibiotics with Dialysis. Dr. Garber's note from discharge states patient was to be on cefazolin 2gm IV with dialysis , and 3gm IV Wednesday. Patient received dose this morning in dialysis. Dr. Newman ordered for cefazolin to be restarted, pharmacy recommended 1gm IV daily. Ordered accordingly.
--- NOTE | 2018-12-03 19:32 | NUR ---
Consult called in to Dr. Carrizales, orders received. will continue to monitor.
[2018-12-03 19:50] VITALS: BP 104/56
[2018-12-03] MEDS: TAMSULOSIN 0.4 MG CAP.ER.24H. PO SCH (22:05)
[2018-12-03] MEDS: ATORVASTATIN CALCIUM 40 MG TABLET. PO SCH (22:05)
[2018-12-03] MEDS: SENNOSIDES/DOCUSATE 8.6/50MG TABLET. PO SCH (22:05)
[2018-12-03] MEDS: FAMOTIDINE 20 MG TABLET. PO SCH (22:06)
[2018-12-03] MEDS: INSULIN GLARGINE 300 UNITS/3 ML INSULN.PEN. SQ SCH (22:12)
[2018-12-03] MEDS: HEPARIN for SUB-Q USE 5,000 UNIT/ML VIAL. SQ SCH (22:13)
[2018-12-03 23:00] VITALS: BP 108/59
[2018-12-04 03:00] VITALS: BP 134/67
[2018-12-04 07:00] VITALS: BP 106/62
[2018-12-04] MEDS: INSULIN LISPRO 300 UNITS/3 ML INSULN.PEN. SQ SCH ×3 (08:00→17:42)
[2018-12-04] MEDS: SEVELAMER CARBONATE 800 MG TABLET. PO SCH ×3 (08:00→17:31)
[2018-12-04] MEDS ORDERED: ASPIRIN ENTERIC COATED 81 MG TABLET.DR. PO SCH (09:00)
--- NOTE | 2018-12-04 09:25 | NUR ---
Pharmacy Medication Review S: Consulted for medication review re: C.diff Risk Assessment score of 4 O: MARY RUIZ is a 38 year old with: Previous C.diff infection: No Previous hospitalization: Within 30 days Recent antibiotics: Within 30 days Use of gastric acid suppressor: No Transfer from [place]/LTAC: No ABX DE-ESCALATION RECOMMENDED: NO, PT RECEIVING TREATMENT FOR BLOODSTREAM INFECTION PROBIOTIC ORDERED: YES PPI CHANGED TO [id number]: PT NOT ON PPI A: Patient has been identified as having risk factors for C.diff infection as noted above. P: Antibiotic Regimen recommendation made: Probiotic ordered: PPI changed to [id number]: NILES SUAREZ [facility], 12/04/18 0900
[2018-12-04 11:20] VITALS: BP 103/57
[2018-12-04] MEDS: FOLIC/VIT B COMP W-C (RENAL) TABLET. PO SCH (12:33)
[2018-12-04] MEDS: FENOFIBRATE,MICRONIZED 134 MG CAPSULE PO SCH (12:33)
[2018-12-04] MEDS: CARVEDILOL 3.125 MG TABLET. PO SCH ×2 (12:34→17:32)
[2018-12-04] MEDS: SENNOSIDES/DOCUSATE 8.6/50MG TABLET. PO SCH ×2 (12:34→22:25)
[2018-12-04] MEDS: ASPIRIN CHEWABLE 81 MG TABLET. PO SCH (12:34)
[2018-12-04] MEDS: DULoxetine HCL 30 MG CAPSULE.DR PO SCH (12:34)
[2018-12-04] MEDS: FAMOTIDINE 20 MG TABLET. PO SCH ×2 (12:34→22:25)
[2018-12-04] MEDS: HEPARIN for SUB-Q USE 5,000 UNIT/ML VIAL. SQ SCH ×2 (12:42→22:32)
--- NOTE | 2018-12-04 15:15 | PDOC2 ---
CONSULT Date of Consult Date of Consult DATE: 12/04/18 TIME: 15:07 Reason for Consult Reason for Consult: Chest pain Referring Physician Referring Physician: Dr. Newman Identification/Chief Complaint Chief Complaint Chest pain Source Source: Chart review, Patient History of Present Illness Reason for Visit: The patient is a 38-year-old male with end-stage renal disease on whom oh dialysis who was admitted to the emergency room last evening for one day of chest discomfort. The patient reports the pain occurred both at rest and with exertion. It is new onset and he denied any previous history of similar pain. Patient has been treated is feeling better overnight. Troponin peak is minimally elevated at 0.032. Glucose 286. Chest x-ray shows no infiltrates but does show a left endovascular stent. EKG shows no acute ischemic changes. Of note the patient was admitted to the hospital for MSSA bacteremia last month and had a prolonged course of antibiotics. Transesophageal echocardiogram showed normal LV systolic function and no vegetations. Past Medical History Cardiovascular: HTN, Hyperlipidemia Renal/: Chronic renal insuff, Other (end-stage renal disease on hemodialysis) Endocrine: Diabetes Past Surgical History Past Surgical History: Other (left arm fistula for hemodialysis, left toe amputation.) Family History Family History: Hypertension, Kidney Disease Social History No ALCOHOL: none Drugs: None Lives: with Family Current Problem List Problem List Problems Medical Problems: (1) Chest pain Status: Acute Current Medications Current Medications Current Medications Aspirin (Children'S Aspirin) 324 mg 1X ONCE PO ; Start 12/03/18 at 10:15; Stop 12/03/18 at 10:16; Status DC Nitroglycerin (Nitrostat) 0.4 mg PRN Q5MIN PRN SL CP RATING > 1/10; Start at 10:00; Stop 12/04/18 at 09:20; Status DC Morphine Sulfate (Morphine Sulfate) 2 mg PRN Q15MIN PRN IV/SQ PAIN GREATER THAN 3/10; Start 12/03/18 at 10:00; Stop 12/03/18 at 19:00; Status DC Ondansetron HCl (Zofran) 4 mg PRN Q8HRS PRN IV NAUSEA/VOMITING; Start 12/03/18 at 14:30; Stop 12/04/18 at 09:20; Status DC Morphine Sulfate (Morphine Sulfate) 4 mg PRN Q2HR PRN IV PAIN; Start 12/03/18 at 14:30; Stop 12/04/18 at 14:29; Status DC Aspirin (Children'S Aspirin) 81 mg DAILYWBKFT PO Last administered on at 12:34; Start 12/04/18 at 08:00 Nitroglycerin (Nitrostat) 0.4 mg PRN Q5MIN PRN SL CHEST PAIN; Start 12/03/18 at 15:00 Morphine Sulfate (Morphine Sulfate) 1 mg PRN Q10MIN PRN IV CHEST PAIN; Start at 15:00 Acetaminophen (Tylenol) 650 mg PRN Q6HRS PRN PO MILD PAIN / TEMP; Start at 15:00 Al Hydroxide/Mg Hydroxide (Mylanta Plus Xs) 30 ml PRN Q4HRS PRN PO HEARTBURN / GAS; Start 12/03/18 at 15:00 Ondansetron HCl (Zofran) 4 mg PRN Q6HRS PRN IV NAUSEA/VOMITING; Start 12/03/18 at 15:00 Zolpidem Tartrate (Ambien) 5 mg PRN QHS PRN PO INSOMNIA; Start 12/03/18 at 15:00 Heparin Sodium (Porcine) (Heparin Sodium) 5,000 unit Q12HR SQ Last administered on 12/04/18at 12:42; Start 12/03/18 at 21:00 Senna/Docusate Sodium (Senna Plus) 1 tab BID PO Last administered on 12/04/18at 12:34; Start 12/03/18 at 21:00 Lactulose (Lactulose) 20 gm PRN Q12HR PRN PO CONSTIPATION; Start 12/03/18 at 15: 00 Pharmacy Consult (C.diff Med Screen By Rx) 1 each 1X ONCE MC ; Start 12/03/18 at 16:30; Stop 12/03/18 at 16:31; Status DC Aspirin (Ecotrin) 81 mg DAILY PO ; Start 12/04/18 at 09:00; Status UNV Atorvastatin Calcium (Lipitor) 40 mg HS PO Last administered on 12/03/18at 22:05 ; Start 12/03/18 at 21:00 Carvedilol (Coreg) 3.125 mg BIDWMEALS PO Last administered on 12/04/18at 12:34; Start 12/03/18 at 18:00 Ergocalciferol (Vitamin D2) 50,000 unit WEEKLY PO ; Start 12/10/18 at 09:00 Famotidine (Pepcid) 10 mg BID PO Last administered on 12/04/18 12:34; Start at 21:00 Lisinopril (Prinivil) 10 mg QMWF PO ; Start 12/05/18 at 16:00 Lisinopril (Prinivil) 10 mg QSU PO ; Start 12/04/18 at 16:00 Sevelamer Carbonate (Renvela) 1,600 mg TIDWMEALS PO Last administered on 12:33; Start 12/03/18 at 18:00 Tamsulosin HCl (Flomax) 0.4 mg HS PO Last administered on 12/03/18at 22:05; Start 12/03/18 at 21:00 Duloxetine HCl (Cymbalta) 60 mg DAILY PO Last administered on 12/04/18 12:34; Start 12/04/18 at 09:00 Fenofibrate (Lofibra) 134 mg DAILY PO Last administered on 12/04/18 12:33; Start 12/04/18 at 09:00 Vitamin B Complex/ Vitamin C (Mandie-Yissel) 1 tab DAILY PO Last administered on 12:33; Start 12/04/18 at 09:00 Insulin Human Lispro (HumaLOG) 6 units TIDWMEALS SQ Last administered on 12:41; Start 12/03/18 at 18:00 Insulin Glargine (Lantus) 10 units QHS SQ Last administered on 12/03/18at 22:12; Start 12/03/18 at 21:00 Cefazolin Sodium 50 ml @ 100 mls/hr DAILY IV ; Start 12/04/18 at 09:00; Status UNV Cefazolin Sodium 1 gm/Dextrose 50 ml @ 100 mls/hr Q24H IV ; Start 12/03/18 at 18 :00 Lactobacillus Rhamnosus (Culturelle) 1 cap BID PO ; Start 12/04/18 at 21:00 Active Scripts Active Reported Levemir (Insulin Detemir) 100 Unit/1 Ml Vial 10 Unit SQ HS Renal Caps Softgel (Folic Acid/Vitamin B Comp W-C) 1 Mg Capsule 1 Cap PO DAILY Novolog (Insulin Aspart) 100 Unit/1 Ml Cartridge 6 Unit SQ TIDWMEALS Lisinopril 10 Mg Tablet 1 Tab PO QSU Lisinopril 10 Mg Tablet 1 Tab PO QMWF Carvedilol (Carvedilol) 3.125 Mg Tablet 1 Tab PO BID Atorvastatin Calcium 40 Mg Tablet 40 Mg PO HS Fenofibrate (Fenofibrate Nanocrystallized) 145 Mg Tablet 1 Tab PO DAILY Famotidine 20 Mg Tablet 10 Mg PO BID Cymbalta (Duloxetine Hcl) 60 Mg Capsule.dr 1 Cap PO DAILY Renvela (Sevelamer Carbonate) 800 Mg Tablet 1,600 Mg PO TIDWMEALS Vitamin D2 (Ergocalciferol (Vitamin D2)) 50,000 Unit Capsule 1 Cap PO WEEKLY Tamsulosin Hcl 0.4 Mg Cap.er.24h 1 Cap PO HS Metoprolol Tartrate 25 Mg Tablet 12.5 Mg PO BID Aspir 81 (Aspirin) 81 Mg Tablet.dr 81 Mg PO DAILY Allergies Allergies: Coded Allergies: No Known Drug Allergies (Unverified , 10/23/18) ROS Respiratory: YES: SOB with excertion Cardiovascular: yes Chest Pain Physical Exam General: No acute distress HEENT: Atraumatic Lungs: Clear to auscultation Heart: Regular rate Abdomen: Normal bowel sounds Vitals VITALS Vital Signs Date Time Temp Pulse Resp B/P (MAP) Pulse Ox O2 Delivery O2 Flow Rate FiO2 12/04/18 12:34 91 103/57 12/04/18 11:20 98.0 16 98 Room Air 98.0 Labs Labs Laboratory Tests Test 12/03/18 10:30 12/03/18 10:40 12/03/18 16:58 12/03/18 17:30 Glucose (Fingerstick) 287 mg/dL (70-99) 292 mg/dL (70-99) White Blood Count 5.9 x10^3/uL (4.0-11.0) Red Blood Count 3.56 x10^6/uL (4.30-5.70) Hemoglobin 11.4 g/dL (13.0-17.5) Hematocrit 34.5 % (39.0-53.0) Mean Corpuscular Volume 97 fL (79-100) Mean Corpuscular Hemoglobin 32 pg (25-35) Mean Corpuscular Hemoglobin Concent 33 g/dL (31-37) Red Cell Distribution Width 14.9 % (11.5-14.5) Platelet Count 247 x10^3/uL (140-400) Neutrophils (%) (Auto) 65 % (31-73) Lymphocytes (%) (Auto) 23 % (24-48) Monocytes (%) (Auto) 8 % (0-9) Eosinophils (%) (Auto) 3 % (0-3) Basophils (%) (Auto) 1 % (0-3) Neutrophils # (Auto) 3.8 x10^3uL (1.8-7.7) Lymphocytes # (Auto) 1.3 x10^3/uL (1.0-4.8) Monocytes # (Auto) 0.5 x10^3/uL (0.0-1.1) Eosinophils # (Auto) 0.2 x10^3/uL (0.0-0.7) Basophils # (Auto) 0.1 x10^3/uL (0.0-0.2) Sodium Level 136 mmol/L (136-145) Potassium Level 3.7 mmol/L (3.5-5.1) Chloride Level 96 mmol/L (98-107) Carbon Dioxide Level 29 mmol/L (21-32) Anion Gap 11 (6-14) Blood Urea Nitrogen 36 mg/dL (8-26) Creatinine 5.0 mg/dL (0.7-1.3) Estimated GFR (Cockcroft-Gault) 13.2 BUN/Creatinine Ratio 7 (6-20) Glucose Level 286 mg/dL (70-99) Calcium Level 9.5 mg/dL (8.5-10.1) Phosphorus Level 4.1 mg/dL (2.6-4.7) Magnesium Level 2.3 mg/dL (1.8-2.4) Total Bilirubin 0.4 mg/dL (0.2-1.0) Aspartate Amino Transf (AST/SGOT) 33 U/L (15-37) Alanine Aminotransferase (ALT/SGPT) 11 U/L (16-63) Alkaline Phosphatase 157 U/L (46-116) Troponin I Quantitative 0.032 ng/mL (0.000-0.055) 0.021 ng/mL (0.000-0.055) IL-Lip-U-Type Natriuretic Peptide 1149 pg/mL (0-124) Total Protein 7.6 g/dL (6.4-8.2) Albumin 3.4 g/dL (3.4-5.0) Albumin/Globulin Ratio 0.8 (1.0-1.7) Lipase 662 U/L (73-393) Test 12/03/18 21:09 12/04/18 04:30 12/04/18 07:28 12/04/18 12:03 Glucose (Fingerstick) 207 mg/dL (70-99) 209 mg/dL (70-99) 150 mg/dL (70-99) Troponin I Quantitative 0.020 ng/mL (0.000-0.055) Laboratory Tests Test 12/03/18 16:58 12/03/18 17:30 12/03/18 21:09 12/04/18 04:30 Glucose (Fingerstick) 292 mg/dL (70-99) 207 mg/dL (70-99) Troponin I Quantitative 0.021 ng/mL (0.000-0.055) 0.020 ng/mL (0.000-0.055) Test 12/04/18 07:28 12/04/18 12:03 Glucose (Fingerstick) 209 mg/dL (70-99) 150 mg/dL (70-99) Images Images Chest x-ray with no infiltrates, left endovascular stent. Assessment/Plan Assessment/Plan 1. Chest pain. Patient's pain is largely resolved. EKG shows no acute ischemic changes. Troponin is minimally elevated at 0.032 in the setting of end-stage renal disease. Patient however does have risk factors including diabetes, hyperlipidemia, hypertension and end-stage renal disease despite his young age. We'll continue medical treatment. We'll check MPI testing to exclude underlying significant coronary artery disease. 2. End-stage renal disease. Hemodialysis as per the renal service. 3. Hypertension. We'll adjust medications as needed. 4. Diabetes mellitus. Glucose 286. Treatment as per the primary service. 5. Fairly recent antibiotic course for MSSA bacteremia. Thank you for allowing us to participate in the care of your patient. MELVIN XIE MD Dec 04, 2018 15:15
[2018-12-04 15:30] VITALS: BP 113/63
--- NOTE | 2018-12-04 15:30 | PDOC ---
PROGRESS NOTES Chief Complaint Chief Complaint Chest pain rule out acs, atypical in nature HTN DM type 2 insulin requiring ESRD on HD on Wed History of Present Illness History of Present Illness 38 yo gentleman with past medical history of hypertension diabetes who consequently ended up in end-stage renal disease and now is on dialysis. Patient was in his usual state of health until the day prior to his admission when he started complaining of chest discomfort or his precordial area the patient denies radiation to the neck or the arm or jaw. The patient denies sensation of impending doom. No diaphoresis no nausea or vomiting was associated with the symptoms. The episode lasted less than 20 minutes. Overnight still with some pain. He states he needs a shower. Needs MPI per cardiology, awaiting this tomorrow morning. He is fairly disorganized with his thinking and has poor hygiene today. A/P: chest pain rule out acs, atypical in nature htn well controlled dm type 2 insulin requiring ESRD on HD on Wed Plan: follow troponin consult cardiology nephro for dialysis DVT prophylaxis: heparin Vitals Vitals Vital Signs Date Time Temp Pulse Resp B/P (MAP) Pulse Ox O2 Delivery O2 Flow Rate FiO2 12/04/18 12:34 91 103/57 12/04/18 11:20 98.0 16 98 Room Air 98.0 Physical Exam General: Alert, Oriented X3, Cooperative Heart: Regular rate, Normal S1, Normal S2, No murmurs, Gallops Lungs: Clear, Other Abdomen: Normal bowel sounds, Soft, No tenderness, No hepatosplenomegaly Extremities: No clubbing, No cyanosis Skin: No rashes, No breakdown Labs LABS Laboratory Tests Test 12/03/18 16:58 12/03/18 17:30 12/03/18 21:09 12/04/18 04:30 Glucose (Fingerstick) 292 mg/dL (70-99) 207 mg/dL (70-99) Troponin I Quantitative 0.021 ng/mL (0.000-0.055) 0.020 ng/mL (0.000-0.055) Test 12/04/18 07:28 12/04/18 12:03 Glucose (Fingerstick) 209 mg/dL (70-99) 150 mg/dL (70-99) Assessment and Plan Assessmemt and Plan Problems Medical Problems: (1) Chest pain Status: Acute Comment Review of Relevant I have reviewed the following items ching (where applicable) has been applied. Labs Laboratory Tests Test 12/03/18 10:30 12/03/18 10:40 12/03/18 16:58 12/03/18 17:30 Glucose (Fingerstick) 287 mg/dL (70-99) 292 mg/dL (70-99) White Blood Count 5.9 x10^3/uL (4.0-11.0) Red Blood Count 3.56 x10^6/uL (4.30-5.70) Hemoglobin 11.4 g/dL (13.0-17.5) Hematocrit 34.5 % (39.0-53.0) Mean Corpuscular Volume 97 fL (79-100) Mean Corpuscular Hemoglobin 32 pg (25-35) Mean Corpuscular Hemoglobin Concent 33 g/dL (31-37) Red Cell Distribution Width 14.9 % (11.5-14.5) Platelet Count 247 x10^3/uL (140-400) Neutrophils (%) (Auto) 65 % (31-73) Lymphocytes (%) (Auto) 23 % (24-48) Monocytes (%) (Auto) 8 % (0-9) Eosinophils (%) (Auto) 3 % (0-3) Basophils (%) (Auto) 1 % (0-3) Neutrophils # (Auto) 3.8 x10^3uL (1.8-7.7) Lymphocytes # (Auto) 1.3 x10^3/uL (1.0-4.8) Monocytes # (Auto) 0.5 x10^3/uL (0.0-1.1) Eosinophils # (Auto) 0.2 x10^3/uL (0.0-0.7) Basophils # (Auto) 0.1 x10^3/uL (0.0-0.2) Sodium Level 136 mmol/L (136-145) Potassium Level 3.7 mmol/L (3.5-5.1) Chloride Level 96 mmol/L (98-107) Carbon Dioxide Level 29 mmol/L (21-32) Anion Gap 11 (6-14) Blood Urea Nitrogen 36 mg/dL (8-26) Creatinine 5.0 mg/dL (0.7-1.3) Estimated GFR (Cockcroft-Gault) 13.2 BUN/Creatinine Ratio 7 (6-20) Glucose Level 286 mg/dL (70-99) Calcium Level 9.5 mg/dL (8.5-10.1) Phosphorus Level 4.1 mg/dL (2.6-4.7) Magnesium Level 2.3 mg/dL (1.8-2.4) Total Bilirubin 0.4 mg/dL (0.2-1.0) Aspartate Amino Transf (AST/SGOT) 33 U/L (15-37) Alanine Aminotransferase (ALT/SGPT) 11 U/L (16-63) Alkaline Phosphatase 157 U/L (46-116) Troponin I Quantitative 0.032 ng/mL (0.000-0.055) 0.021 ng/mL (0.000-0.055) OM-Vfg-T-Type Natriuretic Peptide 1149 pg/mL (0-124) Total Protein 7.6 g/dL (6.4-8.2) Albumin 3.4 g/dL (3.4-5.0) Albumin/Globulin Ratio 0.8 (1.0-1.7) Lipase 662 U/L (73-393) Test 12/03/18 21:09 12/04/18 04:30 12/04/18 07:28 12/04/18 12:03 Glucose (Fingerstick) 207 mg/dL (70-99) 209 mg/dL (70-99) 150 mg/dL (70-99) Troponin I Quantitative 0.020 ng/mL (0.000-0.055) Laboratory Tests Test 12/03/18 16:58 12/03/18 17:30 12/03/18 21:09 12/04/18 04:30 Glucose (Fingerstick) 292 mg/dL (70-99) 207 mg/dL (70-99) Troponin I Quantitative 0.021 ng/mL (0.000-0.055) 0.020 ng/mL (0.000-0.055) Test 12/04/18 07:28 12/04/18 12:03 Glucose (Fingerstick) 209 mg/dL (70-99) 150 mg/dL (70-99) Medications Current Medications Aspirin (Children'S Aspirin) 324 mg 1X ONCE PO ; Start 12/03/18 at 10:15; Stop 12/03/18 at 10:16; Status DC Nitroglycerin (Nitrostat) 0.4 mg PRN Q5MIN PRN SL CP RATING > 1/10; Start at 10:00; Stop 12/04/18 at 09:20; Status DC Morphine Sulfate (Morphine Sulfate) 2 mg PRN Q15MIN PRN IV/SQ PAIN GREATER THAN 3/10; Start 12/03/18 at 10:00; Stop 12/03/18 at 19:00; Status DC Ondansetron HCl (Zofran) 4 mg PRN Q8HRS PRN IV NAUSEA/VOMITING; Start 12/03/18 at 14:30; Stop 12/04/18 at 09:20; Status DC Morphine Sulfate (Morphine Sulfate) 4 mg PRN Q2HR PRN IV PAIN; Start 12/03/18 at 14:30; Stop 12/04/18 at 14:29; Status DC Aspirin (Children'S Aspirin) 81 mg DAILYWBKFT PO Last administered on at 12:34; Start 12/04/18 at 08:00 Nitroglycerin (Nitrostat) 0.4 mg PRN Q5MIN PRN SL CHEST PAIN; Start 12/03/18 at 15:00 Morphine Sulfate (Morphine Sulfate) 1 mg PRN Q10MIN PRN IV CHEST PAIN; Start at 15:00 Acetaminophen (Tylenol) 650 mg PRN Q6HRS PRN PO MILD PAIN / TEMP; Start at 15:00 Al Hydroxide/Mg Hydroxide (Mylanta Plus Xs) 30 ml PRN Q4HRS PRN PO HEARTBURN / GAS; Start 12/03/18 at 15:00 Ondansetron HCl (Zofran) 4 mg PRN Q6HRS PRN IV NAUSEA/VOMITING; Start 12/03/18 at 15:00 Zolpidem Tartrate (Ambien) 5 mg PRN QHS PRN PO INSOMNIA; Start 12/03/18 at 15:00 Heparin Sodium (Porcine) (Heparin Sodium) 5,000 unit Q12HR SQ Last administered on 12/04/18at 12:42; Start 12/03/18 at 21:00 Senna/Docusate Sodium (Senna Plus) 1 tab BID PO Last administered on 12/04/18 12:34; Start 12/03/18 at 21:00 Lactulose (Lactulose) 20 gm PRN Q12HR PRN PO CONSTIPATION; Start 12/03/18 at 15: 00 Pharmacy Consult (C.diff Med Screen By Rx) 1 each 1X ONCE MC ; Start 12/03/18 at 16:30; Stop 12/03/18 at 16:31; Status DC Aspirin (Ecotrin) 81 mg DAILY PO ; Start 12/04/18 at 09:00; Status UNV Atorvastatin Calcium (Lipitor) 40 mg HS PO Last administered on 12/03/18 22:05 ; Start 12/03/18 at 21:00 Carvedilol (Coreg) 3.125 mg BIDWMEALS PO Last administered on 12/04/18 12:34; Start 12/03/18 at 18:00 Ergocalciferol (Vitamin D2) 50,000 unit WEEKLY PO ; Start 12/10/18 at 09:00 Famotidine (Pepcid) 10 mg BID PO Last administered on 12/04/18 12:34; Start at 21:00 Lisinopril (Prinivil) 10 mg QMWF PO ; Start 12/05/18 at 16:00 Lisinopril (Prinivil) 10 mg QSU PO ; Start 12/04/18 at 16:00 Sevelamer Carbonate (Renvela) 1,600 mg TIDWMEALS PO Last administered on 12:33; Start 12/03/18 at 18:00 Tamsulosin HCl (Flomax) 0.4 mg HS PO Last administered on 12/03/18at 22:05; Start 12/03/18 at 21:00 Duloxetine HCl (Cymbalta) 60 mg DAILY PO Last administered on 12/04/18 12:34; Start 12/04/18 at 09:00 Fenofibrate (Lofibra) 134 mg DAILY PO Last administered on 12/04/18 12:33; Start 12/04/18 at 09:00 Vitamin B Complex/ Vitamin C (Mandie-Yissel) 1 tab DAILY PO Last administered on 12:33; Start 12/04/18 at 09:00 Insulin Human Lispro (HumaLOG) 6 units TIDWMEALS SQ Last administered on at 12:41; Start 12/03/18 at 18:00 Insulin Glargine (Lantus) 10 units QHS SQ Last administered on 12/03/18at 22:12; Start 12/03/18 at 21:00 Cefazolin Sodium 50 ml @ 100 mls/hr DAILY IV ; Start 12/04/18 at 09:00; Status UNV Cefazolin Sodium 1 gm/Dextrose 50 ml @ 100 mls/hr Q24H IV ; Start 12/03/18 at 18 :00 Lactobacillus Rhamnosus (Culturelle) 1 cap BID PO ; Start 12/04/18 at 21:00 Active Scripts Active Reported Levemir (Insulin Detemir) 100 Unit/1 Ml Vial 10 Unit SQ HS Renal Caps Softgel (Folic Acid/Vitamin B Comp W-C) 1 Mg Capsule 1 Cap PO DAILY Novolog (Insulin Aspart) 100 Unit/1 Ml Cartridge 6 Unit SQ TIDWMEALS Lisinopril 10 Mg Tablet 1 Tab PO QSU Lisinopril 10 Mg Tablet 1 Tab PO QMWF Carvedilol (Carvedilol) 3.125 Mg Tablet 1 Tab PO BID Atorvastatin Calcium 40 Mg Tablet 40 Mg PO HS Fenofibrate (Fenofibrate Nanocrystallized) 145 Mg Tablet 1 Tab PO DAILY Famotidine 20 Mg Tablet 10 Mg PO BID Cymbalta (Duloxetine Hcl) 60 Mg Capsule. 1 Cap PO DAILY Renvela (Sevelamer Carbonate) 800 Mg Tablet 1,600 Mg PO TIDWMEALS Vitamin D2 (Ergocalciferol (Vitamin D2)) 50,000 Unit Capsule 1 Cap PO WEEKLY Tamsulosin Hcl 0.4 Mg Cap.er.24h 1 Cap PO HS Metoprolol Tartrate 25 Mg Tablet 12.5 Mg PO BID Aspir 81 (Aspirin) 81 Mg Tablet.dr 81 Mg PO DAILY Vitals/I & O Vital Sign - Last 24 Hours 12/03/18 12/03/18 12/03/18 12/03/18 15:00 15:30 16:52 17:00 Temp 98.4 98.4 Pulse 86 86 89 Resp 14 16 16 B/P (MAP) 123/62 (82) 122/74 (90) 109/68 (82) Pulse Ox 98 99 98 O2 Delivery Room Air Room Air Room Air Room Air 2/9/19 2/9/19 2/9/19 2/9/19 18:01 19:50 20:20 23:00 Temp 98.3 98.4 98.3 98.4 Pulse 89 91 83 Resp 18 17 B/P (MAP) 109/68 104/56 (72) 108/59 (75) Pulse Ox 98 98 O2 Delivery Room Air Room Air Room Air 12/04/18 12/04/18 12/04/18 12/04/18 03:00 07:00 07:51 11:20 Temp 98.1 98.2 98.0 98.1 98.2 98.0 Pulse 85 88 91 Resp 17 16 16 B/P (MAP) 134/67 (89) 106/62 (77) 103/57 (72) Pulse Ox 97 97 98 O2 Delivery Room Air Room Air Room Air Room Air 12/04/18 12:34 Pulse 91 B/P (MAP) 103/57 Intake and Output 12/03/18 12/03/18 12/04/18 15:01 23:01 07:01 Intake Total 0 ml Balance 0 ml KACIE ANDERSON MD Dec 04, 2018 15:30
[2018-12-04] MEDS ORDERED: LISINOPRIL 10 MG TABLET PO SCH (16:00)
[2018-12-04] MEDS: ceFAZolin SODIUM 1 GM in IV DEXTROSE 5% 50 ML IV SCH (17:33)
--- NOTE | 2018-12-04 18:43 | NUR ---
RN NOTE consult called in for dr henderson for ESRD, dialysis t, th, sat
[2018-12-04 19:59] VITALS: BP 102/60
[2018-12-04] MEDS: ATORVASTATIN CALCIUM 40 MG TABLET. PO SCH (22:24)
[2018-12-04] MEDS: TAMSULOSIN 0.4 MG CAP.ER.24H. PO SCH (22:25)
[2018-12-04] MEDS: LACTOBACILLUS RHAMNOSUS GG 1 CAPSULE. PO SCH (22:25)
[2018-12-04] MEDS: INSULIN GLARGINE 300 UNITS/3 ML INSULN.PEN. SQ SCH (22:31)
[2018-12-04 22:37] VITALS: BP 83/41
[2018-12-05 03:22] VITALS: BP 97/54
[2018-12-05 07:00] VITALS: BP 132/74
[2018-12-05] MEDS: SENNOSIDES/DOCUSATE 8.6/50MG TABLET. PO SCH (09:00)
[2018-12-05] MEDS ORDERED: REGADENOSON 0.4 MG/5 ML DISP.SYRIN. IV ONE (09:15)
--- NOTE | 2018-12-05 09:23 | NUR ---
IP: Pt's mrsa hx was in 03/2016 with + mrsa screen and blood. Pt has had multiple negatives and flag removed from records. Pt does not need contact precautions at this time.
[2018-12-05] MEDS: FOLIC/VIT B COMP W-C (RENAL) TABLET. PO SCH (11:47)
--- NOTE | 2018-12-05 11:47 | NUR ---
SS following for discharge planning. SS reviewed pt chart. Pt is from home and currently on room air. Pt has a dialysis chair time with [facility] in [place] on Wednesday, , and Wednesday. Pt will most likely need home healthcare when discharged to home due to limited support system at home. SS discussed with RN. SS will continue to follow for discharge planning.
[2018-12-05] MEDS: DULoxetine HCL 30 MG CAPSULE.DR PO SCH (11:48)
[2018-12-05] MEDS: FAMOTIDINE 20 MG TABLET. PO SCH (11:48)
[2018-12-05] MEDS: SEVELAMER CARBONATE 800 MG TABLET. PO SCH ×3 (11:48→17:34)
[2018-12-05] MEDS: FENOFIBRATE,MICRONIZED 134 MG CAPSULE PO SCH (11:49)
[2018-12-05] MEDS: CARVEDILOL 3.125 MG TABLET. PO SCH ×2 (11:49→17:39)
[2018-12-05] MEDS: LACTOBACILLUS RHAMNOSUS GG 1 CAPSULE. PO SCH (11:49)
[2018-12-05] MEDS: ASPIRIN CHEWABLE 81 MG TABLET. PO SCH (11:49)
[2018-12-05] MEDS: HEPARIN for SUB-Q USE 5,000 UNIT/ML VIAL. SQ SCH (11:58)
[2018-12-05] MEDS: INSULIN LISPRO 300 UNITS/3 ML INSULN.PEN. SQ SCH ×3 (11:59→17:42)
--- NOTE | 2018-12-05 13:37 | PDOC ---
PROGRESS NOTES Chief Complaint Chief Complaint Atypical chest pain HTN DM type 2 ESRD History of Present Illness History of Present Illness Patient was seen and examined this morning while waiting for his MPI stress test. He notes that his chest pain is improved. He is looking forward to going home. MPI will be performed this morning and patient is hoping he is able to go home afterwards. He has not acute concerns or complaints at this time. He received hemodialysis on Tuesdays, , and Saturdays. Vitals Vitals Vital Signs Date Time Temp Pulse Resp B/P (MAP) Pulse Ox O2 Delivery O2 Flow Rate FiO2 12/05/18 11:49 100 152/71 12/05/18 08:00 Room Air 12/05/18 07:00 98.2 14 97 98.2 Physical Exam General: Alert, Oriented X3, Cooperative Heart: Regular rate, Normal S1, Normal S2, No murmurs, Gallops Lungs: Clear, Other (no rhonchi) Abdomen: Soft, No tenderness Extremities: No clubbing, No cyanosis Skin: No rashes, No breakdown Labs LABS Laboratory Tests Test 12/04/18 17:00 12/04/18 21:13 12/05/18 07:35 12/05/18 11:42 Glucose (Fingerstick) 255 mg/dL (70-99) 119 mg/dL (70-99) 142 mg/dL (70-99) 142 mg/dL (70-99) Review of Systems Review of Systems Endorses weakness and mild chest pain. Denies abdominal pain, nausea, vomiting, diarrhea. Assessment and Plan Assessmemt and Plan Assessment: Atypical chest pain HTN DM type 2 ESRD, on hemodialysis Plan: 1. MPI today 2. Continue cardiac monitoring 3. Continue monitoring labs 4. Continue home meds 5. PT/OT 6. Appreciate cardiology and nephrology input 7. Discharge today if MPI is negative 7. If MPI + consider cath Comment Review of Relevant I have reviewed the following items ching (where applicable) has been applied. Labs Laboratory Tests Test 12/03/18 16:55 12/03/18 16:58 12/03/18 17:30 12/03/18 21:09 Nasal Screen MRSA (PCR) Negative (Negative) Glucose (Fingerstick) 292 mg/dL (70-99) 207 mg/dL (70-99) Troponin I Quantitative 0.021 ng/mL (0.000-0.055) Test 12/04/18 04:30 12/04/18 07:28 12/04/18 12:03 12/04/18 17:00 Troponin I Quantitative 0.020 ng/mL (0.000-0.055) Glucose (Fingerstick) 209 mg/dL (70-99) 150 mg/dL (70-99) 255 mg/dL (70-99) Test 12/04/18 21:13 12/05/18 07:35 12/05/18 11:42 Glucose (Fingerstick) 119 mg/dL (70-99) 142 mg/dL (70-99) 142 mg/dL (70-99) Laboratory Tests Test 12/04/18 17:00 12/04/18 21:13 12/05/18 07:35 12/05/18 11:42 Glucose (Fingerstick) 255 mg/dL (70-99) 119 mg/dL (70-99) 142 mg/dL (70-99) 142 mg/dL (70-99) Medications Current Medications Aspirin (Children'S Aspirin) 324 mg 1X ONCE PO ; Start 12/03/18 at 10:15; Stop 12/03/18 at 10:16; Status DC Nitroglycerin (Nitrostat) 0.4 mg PRN Q5MIN PRN SL CP RATING > 1/10; Start at 10:00; Stop 12/04/18 at 09:20; Status DC Morphine Sulfate (Morphine Sulfate) 2 mg PRN Q15MIN PRN IV/SQ PAIN GREATER THAN 3/10; Start 12/03/18 at 10:00; Stop 12/03/18 at 19:00; Status DC Ondansetron HCl (Zofran) 4 mg PRN Q8HRS PRN IV NAUSEA/VOMITING; Start 12/03/18 at 14:30; Stop 12/04/18 at 09:20; Status DC Morphine Sulfate (Morphine Sulfate) 4 mg PRN Q2HR PRN IV PAIN; Start 12/03/18 at 14:30; Stop 12/04/18 at 14:29; Status DC Aspirin (Children'S Aspirin) 81 mg DAILYWBKFT PO Last administered on at 11:49; Start 12/04/18 at 08:00 Nitroglycerin (Nitrostat) 0.4 mg PRN Q5MIN PRN SL CHEST PAIN; Start 12/03/18 at 15:00 Morphine Sulfate (Morphine Sulfate) 1 mg PRN Q10MIN PRN IV CHEST PAIN; Start at 15:00 Acetaminophen (Tylenol) 650 mg PRN Q6HRS PRN PO MILD PAIN / TEMP; Start at 15:00 Al Hydroxide/Mg Hydroxide (Mylanta Plus Xs) 30 ml PRN Q4HRS PRN PO HEARTBURN / GAS; Start 12/03/18 at 15:00 Ondansetron HCl (Zofran) 4 mg PRN Q6HRS PRN IV NAUSEA/VOMITING; Start 12/03/18 at 15:00 Zolpidem Tartrate (Ambien) 5 mg PRN QHS PRN PO INSOMNIA; Start 12/03/18 at 15:00 Heparin Sodium (Porcine) (Heparin Sodium) 5,000 unit Q12HR SQ Last administered on 12/05/18at 11:58; Start 12/03/18 at 21:00 Senna/Docusate Sodium (Senna Plus) 1 tab BID PO Last administered on 12/04/18at 22:25; Start 12/03/18 at 21:00 Lactulose (Lactulose) 20 gm PRN Q12HR PRN PO CONSTIPATION; Start 12/03/18 at 15: 00 Pharmacy Consult (C.diff Med Screen By Rx) 1 each 1X ONCE MC ; Start 12/03/18 at 16:30; Stop 12/03/18 at 16:31; Status DC Aspirin (Ecotrin) 81 mg DAILY PO ; Start 12/04/18 at 09:00; Status UNV Atorvastatin Calcium (Lipitor) 40 mg HS PO Last administered on 12/04/18at 22:24 ; Start 12/03/18 at 21:00 Carvedilol (Coreg) 3.125 mg BIDWMEALS PO Last administered on 12/05/18at 11:49; Start 12/03/18 at 18:00 Ergocalciferol (Vitamin D2) 50,000 unit WEEKLY PO ; Start 12/10/18 at 09:00 Famotidine (Pepcid) 10 mg BID PO Last administered on 12/05/18at 11:48; Start at 21:00 Lisinopril (Prinivil) 10 mg QMWF PO ; Start 12/05/18 at 16:00 Lisinopril (Prinivil) 10 mg QSU PO Last administered on 12/04/18 17:31; Start 12/04/18 at 16:00 Sevelamer Carbonate (Renvela) 1,600 mg TIDWMEALS PO Last administered on 11:48; Start 12/03/18 at 18:00 Tamsulosin HCl (Flomax) 0.4 mg HS PO Last administered on 12/04/18 22:25; Start 12/03/18 at 21:00 Duloxetine HCl (Cymbalta) 60 mg DAILY PO Last administered on 12/05/18 11:48; Start 12/04/18 at 09:00 Fenofibrate (Lofibra) 134 mg DAILY PO Last administered on 12/05/18 11:49; Start 12/04/18 at 09:00 Vitamin B Complex/ Vitamin C (Mandie-Yissel) 1 tab DAILY PO Last administered on 11:47; Start 12/04/18 at 09:00 Insulin Human Lispro (HumaLOG) 6 units TIDWMEALS SQ Last administered on 11:59; Start 12/03/18 at 18:00 Insulin Glargine (Lantus) 10 units QHS SQ Last administered on 12/04/18 22:31 ; Start 12/03/18 at 21:00 Cefazolin Sodium 50 ml @ 100 mls/hr DAILY IV ; Start 12/04/18 at 09:00; Status UNV Cefazolin Sodium 1 gm/Dextrose 50 ml @ 100 mls/hr Q24H IV Last administered on 12/04/18 17:33; Start 12/03/18 at 18:00 Lactobacillus Rhamnosus (Culturelle) 1 cap BID PO Last administered on 11:49; Start 12/04/18 at 21:00 Regadenoson (Lexiscan) 0.4 mg 1X ONCE IV Last administered on 12/05/18 11:24 ; Start 12/05/18 at 09:15; Stop 12/05/18 at 09:16; Status DC Active Scripts Active Reported Levemir (Insulin Detemir) 100 Unit/1 Ml Vial 10 Unit SQ HS Renal Caps Softgel (Folic Acid/Vitamin B Comp W-C) 1 Mg Capsule 1 Cap PO DAILY Novolog (Insulin Aspart) 100 Unit/1 Ml Cartridge 6 Unit SQ TIDWMEALS Lisinopril 10 Mg Tablet 1 Tab PO QSU Lisinopril 10 Mg Tablet 1 Tab PO QMWF Carvedilol (Carvedilol) 3.125 Mg Tablet 1 Tab PO BID Atorvastatin Calcium 40 Mg Tablet 40 Mg PO HS Fenofibrate (Fenofibrate Nanocrystallized) 145 Mg Tablet 1 Tab PO DAILY Famotidine 20 Mg Tablet 10 Mg PO BID Cymbalta (Duloxetine Hcl) 60 Mg Capsule. 1 Cap PO DAILY Renvela (Sevelamer Carbonate) 800 Mg Tablet 1,600 Mg PO TIDWMEALS Vitamin D2 (Ergocalciferol (Vitamin D2)) 50,000 Unit Capsule 1 Cap PO WEEKLY Tamsulosin Hcl 0.4 Mg Cap.er.24h 1 Cap PO HS Metoprolol Tartrate 25 Mg Tablet 12.5 Mg PO BID Aspir 81 (Aspirin) 81 Mg Tablet.dr 81 Mg PO DAILY Vitals/I & O Vital Sign - Last 24 Hours 12/04/18 12/04/18 12/04/18 12/04/18 15:30 17:31 17:32 19:59 Temp 97.4 98.1 97.4 98.1 Pulse 103 98 99 94 Resp 20 16 B/P (MAP) 113/63 (80) 113/63 113/63 102/60 (74) Pulse Ox 99 97 O2 Delivery Room Air Room Air 12/04/18 12/04/18 12/05/18 12/05/18 20:20 22:37 03:22 07:00 Temp 97.4 97.5 98.2 97.4 97.5 98.2 Pulse 83 85 94 Resp 16 14 14 B/P (MAP) 83/41 (55) 97/54 (68) 132/74 (93) Pulse Ox 96 97 97 O2 Delivery Room Air Room Air Room Air Room Air 12/05/18 12/05/18 08:00 11:49 Pulse 100 B/P (MAP) 152/71 O2 Delivery Room Air Intake and Output 12/04/18 12/04/18 12/05/18 15:01 23:01 07:01 Intake Total 236 ml 530 ml 300 ml Balance 236 ml 530 ml 300 ml PRATIBHA BRITO III DO Dec 05, 2018 13:37
--- NOTE | 2018-12-05 14:00 | NUR ---
Emar Documentaion: 1200 doses of renvela and humalog non-administered, patient had been NPO for breakfast and morning dose was administered late.
--- NOTE | 2018-12-05 14:44 | EKG ---
[facility] [address] [place] [address] Test Date: 2018-12-03 Test Time: 09:51:56 Pat Name: MARY RUIZ Department: Room: 205 1 Gender: M Server Assistant: JEREMY : 1980 Requested By: KELLI PRINCE Order Number: [id number] Reading MD: Garo Esparza MD Measurements Intervals [place] Rate: 83 P: 164 OK: 158 QRS: -172 QRSD: 92 T: 128 QT: 396 QTc: 471 Interpretive Statements SR LIMB LEAD MISPLACEMENT Electronically Signed On 12-08-2018 9:41:18 SUBSTATION OPERATOR HELPER by Garo Esparza MD
[2018-12-05 14:51] VITALS: BP 138/77
--- NOTE | 2018-12-05 14:57 | PDOC2 ---
CONSULT Date of Consult Date of Consult DATE: 12/05/18 TIME: 14:53 Reason for Consult Reason for Consult: ESRD Referring Physician Referring Physician: CHRISTOPHER Identification/Chief Complaint Chief Complaint CHEST PAIN Source Source: Chart review, Patient History of Present Illness Reason for Visit: THIS IS A 38 YR OLD WITH CHEST PAIN. NOTED TO HAVE ESRD DUE TO HTN AND DM II. HE HAS OP HD ON TTS. LABS ARE C/W HIS ESRD STATUS. PT UNDERGOING CARDIOLOGY EVALUATION NOW Past Medical History Cardiovascular: HTN, Hyperlipidemia Renal/: Chronic renal insuff, Other (end-stage renal disease on hemodialysis) Endocrine: Diabetes, Hyperparathyroidism Past Surgical History Past Surgical History: Other (left arm fistula for hemodialysis, left toe amputation.) Family History Family History: Hypertension, Kidney Disease Social History No ALCOHOL: none Drugs: None Lives: with Family Current Problem List Problem List Problems Medical Problems: (1) Chest pain Status: Acute Current Medications Current Medications Current Medications Aspirin (Children'S Aspirin) 324 mg 1X ONCE PO ; Start 12/03/18 at 10:15; Stop 12/03/18 at 10:16; Status DC Nitroglycerin (Nitrostat) 0.4 mg PRN Q5MIN PRN SL CP RATING > 1/10; Start at 10:00; Stop 12/04/18 at 09:20; Status DC Morphine Sulfate (Morphine Sulfate) 2 mg PRN Q15MIN PRN IV/SQ PAIN GREATER THAN 3/10; Start 12/03/18 at 10:00; Stop 12/03/18 at 19:00; Status DC Ondansetron HCl (Zofran) 4 mg PRN Q8HRS PRN IV NAUSEA/VOMITING; Start 12/03/18 at 14:30; Stop 12/04/18 at 09:20; Status DC Morphine Sulfate (Morphine Sulfate) 4 mg PRN Q2HR PRN IV PAIN; Start 12/03/18 at 14:30; Stop 12/04/18 at 14:29; Status DC Aspirin (Children'S Aspirin) 81 mg DAILYWBKFT PO Last administered on at 11:49; Start 12/04/18 at 08:00 Nitroglycerin (Nitrostat) 0.4 mg PRN Q5MIN PRN SL CHEST PAIN; Start 12/03/18 at 15:00 Morphine Sulfate (Morphine Sulfate) 1 mg PRN Q10MIN PRN IV CHEST PAIN; Start at 15:00 Acetaminophen (Tylenol) 650 mg PRN Q6HRS PRN PO MILD PAIN / TEMP; Start at 15:00 Al Hydroxide/Mg Hydroxide (Mylanta Plus Xs) 30 ml PRN Q4HRS PRN PO HEARTBURN / GAS; Start 12/03/18 at 15:00 Ondansetron HCl (Zofran) 4 mg PRN Q6HRS PRN IV NAUSEA/VOMITING; Start 12/03/18 at 15:00 Zolpidem Tartrate (Ambien) 5 mg PRN QHS PRN PO INSOMNIA; Start 12/03/18 at 15:00 Heparin Sodium (Porcine) (Heparin Sodium) 5,000 unit Q12HR SQ Last administered on 12/05/18at 11:58; Start 12/03/18 at 21:00 Senna/Docusate Sodium (Senna Plus) 1 tab BID PO Last administered on 12/04/18at 22:25; Start 12/03/18 at 21:00 Lactulose (Lactulose) 20 gm PRN Q12HR PRN PO CONSTIPATION; Start 12/03/18 at 15: 00 Pharmacy Consult (C.diff Med Screen By Rx) 1 each 1X ONCE MC ; Start 12/03/18 at 16:30; Stop 12/03/18 at 16:31; Status DC Aspirin (Ecotrin) 81 mg DAILY PO ; Start 12/04/18 at 09:00; Status UNV Atorvastatin Calcium (Lipitor) 40 mg HS PO Last administered on 12/04/18at 22:24 ; Start 12/03/18 at 21:00 Carvedilol (Coreg) 3.125 mg BIDWMEALS PO Last administered on 12/05/18at 11:49; Start 12/03/18 at 18:00 Ergocalciferol (Vitamin D2) 50,000 unit WEEKLY PO ; Start 12/10/18 at 09:00 Famotidine (Pepcid) 10 mg BID PO Last administered on 12/05/18at 11:48; Start at 21:00 Lisinopril (Prinivil) 10 mg QMWF PO ; Start 12/05/18 at 16:00 Lisinopril (Prinivil) 10 mg QSU PO Last administered on 12/04/18 17:31; Start 12/04/18 at 16:00 Sevelamer Carbonate (Renvela) 1,600 mg TIDWMEALS PO Last administered on 11:48; Start 12/03/18 at 18:00 Tamsulosin HCl (Flomax) 0.4 mg HS PO Last administered on 12/04/18 22:25; Start 12/03/18 at 21:00 Duloxetine HCl (Cymbalta) 60 mg DAILY PO Last administered on 12/05/18 11:48; Start 12/04/18 at 09:00 Fenofibrate (Lofibra) 134 mg DAILY PO Last administered on 12/05/18 11:49; Start 12/04/18 at 09:00 Vitamin B Complex/ Vitamin C (Mandie-Yissel) 1 tab DAILY PO Last administered on 11:47; Start 12/04/18 at 09:00 Insulin Human Lispro (HumaLOG) 6 units TIDWMEALS SQ Last administered on 11:59; Start 12/03/18 at 18:00 Insulin Glargine (Lantus) 10 units QHS SQ Last administered on 12/04/18 22:31 ; Start 12/03/18 at 21:00 Cefazolin Sodium 50 ml @ 100 mls/hr DAILY IV ; Start 12/04/18 at 09:00; Status UNV Cefazolin Sodium 1 gm/Dextrose 50 ml @ 100 mls/hr Q24H IV Last administered on 12/04/18 17:33; Start 12/03/18 at 18:00 Lactobacillus Rhamnosus (Culturelle) 1 cap BID PO Last administered on 11:49; Start 12/04/18 at 21:00 Regadenoson (Lexiscan) 0.4 mg 1X ONCE IV Last administered on 12/05/18 11:24 ; Start 12/05/18 at 09:15; Stop 12/05/18 at 09:16; Status DC Active Scripts Active Reported Levemir (Insulin Detemir) 100 Unit/1 Ml Vial 10 Unit SQ HS Renal Caps Softgel (Folic Acid/Vitamin B Comp W-C) 1 Mg Capsule 1 Cap PO DAILY Novolog (Insulin Aspart) 100 Unit/1 Ml Cartridge 6 Unit SQ TIDWMEALS Lisinopril 10 Mg Tablet 1 Tab PO QSU Lisinopril 10 Mg Tablet 1 Tab PO QMWF Carvedilol (Carvedilol) 3.125 Mg Tablet 1 Tab PO BID Atorvastatin Calcium 40 Mg Tablet 40 Mg PO HS Fenofibrate (Fenofibrate Nanocrystallized) 145 Mg Tablet 1 Tab PO DAILY Famotidine 20 Mg Tablet 10 Mg PO BID Cymbalta (Duloxetine Hcl) 60 Mg Capsule.dr 1 Cap PO DAILY Renvela (Sevelamer Carbonate) 800 Mg Tablet 1,600 Mg PO TIDWMEALS Vitamin D2 (Ergocalciferol (Vitamin D2)) 50,000 Unit Capsule 1 Cap PO WEEKLY Tamsulosin Hcl 0.4 Mg Cap.er.24h 1 Cap PO HS Metoprolol Tartrate 25 Mg Tablet 12.5 Mg PO BID Aspir 81 (Aspirin) 81 Mg Tablet.dr 81 Mg PO DAILY Allergies Allergies: Coded Allergies: No Known Drug Allergies (Unverified , 10/23/18) ROS General: YES: Fatigue, Malaise, Appetite PSYCHOLOGICAL ROS: YES: Anxiety Eyes: Yes Decreased vision HEENT: YES: [place] ALLERGY AND IMMUNOLOGY: YES: Seasonal Allergies Respiratory: YES: Cough Cardiovascular: yes Chest Pain Gastrointestinal: Yes Constipation Genitourinary: YES Other (ANURIA) Musculoskeletal: Yes Muscular Weakness Neurological: Yes Weakness Skin: Yes Dry Skin Physical Exam General: Alert, Oriented X3, Cooperative, No acute distress HEENT: Atraumatic, PERRLA Lungs: Clear to auscultation Heart: Regular rate Abdomen: Normal bowel sounds, Soft, No tenderness Extremities: No cyanosis Skin: No breakdown Neuro: Normal speech, Cranial nerves 3-12 NL Psych/Mental Status: Mental status NL, Mood NL MUSCULOSKELETAL: No joint tenderness, No deformity Vitals VITALS Vital Signs Date Time Temp Pulse Resp B/P (MAP) Pulse Ox O2 Delivery O2 Flow Rate FiO2 12/05/18 14:51 97.7 94 14 138/77 (97) 98 Room Air 97.7 Labs Labs Laboratory Tests Test 12/03/18 16:55 12/03/18 16:58 12/03/18 17:30 12/03/18 21:09 Nasal Screen MRSA (PCR) Negative (Negative) Glucose (Fingerstick) 292 mg/dL (70-99) 207 mg/dL (70-99) Troponin I Quantitative 0.021 ng/mL (0.000-0.055) Test 12/04/18 04:30 12/04/18 07:28 12/04/18 12:03 12/04/18 17:00 Troponin I Quantitative 0.020 ng/mL (0.000-0.055) Glucose (Fingerstick) 209 mg/dL (70-99) 150 mg/dL (70-99) 255 mg/dL (70-99) Test 12/04/18 21:13 12/05/18 07:35 12/05/18 11:42 Glucose (Fingerstick) 119 mg/dL (70-99) 142 mg/dL (70-99) 142 mg/dL (70-99) Laboratory Tests Test 12/04/18 17:00 12/04/18 21:13 12/05/18 07:35 12/05/18 11:42 Glucose (Fingerstick) 255 mg/dL (70-99) 119 mg/dL (70-99) 142 mg/dL (70-99) 142 mg/dL (70-99) Assessment/Plan Assessment/Plan IMP CHEST PAIN DM II HTN ESRD ANEMIA PLAN HD TTS [facility] W/U ELISHA STALLWORTH MD Dec 05, 2018 14:57
--- NOTE | 2018-12-05 14:59 | PDOC ---
Renal-Progress Notes Vitals Vitals Vital Signs Date Time Temp Pulse Resp B/P (MAP) Pulse Ox O2 Delivery O2 Flow Rate FiO2 12/05/18 14:51 97.7 94 14 138/77 (97) 98 Room Air 97.7 Weight Weight [ ] I.O. Intake and Output Intake and Output 12/05/18 07:01 Intake Total 1066 ml Balance 1066 ml Intake Oral 1016 ml IV Total 50 ml Labs Labs Laboratory Tests Test 12/04/18 17:00 12/04/18 21:13 12/05/18 07:35 12/05/18 11:42 Glucose (Fingerstick) 255 mg/dL (70-99) 119 mg/dL (70-99) 142 mg/dL (70-99) 142 mg/dL (70-99) Assessment Assessment IMP CKD STAGE 4-CR OF 4.8-STABLE S/P THORACENTESIS ANEMIA OF CKD CM WITH EF OF 35% SYSTOLIC CHF DM II HTN PLAN DIURESIS PT WILL F/U AT [facility] OR WITH US AT D/C WILL FOLLOW ELISHA STALLWORTH MD Dec 05, 2018 14:59
--- NOTE | 2018-12-05 15:45 | RAD ---
MR#: [id number] Date of Study: 12/05/2018 Ordering Physician: MELVIN XIE, Referring Physician: DONNA SCOTT Tech: JOURDAN Spicer APPROVED REPORT Test Type: Pharmacological Stress Nurse/Tech: Kwadwo Jones RN Test Indications: chest pain Cardiac History: HTN Medications: See EMR Medical History: DM Resting ECG: SR Resting Heart Rate: 95 bpm Resting Blood Pressure: 114/72mmHg Pretest Chest Pain: No chest pain Nurse/Tech Notes lung sounds clear, heart tones regular Consent: The procedure was explained to the patient in lay terms. Informed consent was witnessed. Arnav eout was entered into [employer]. History and Stress Test performed by TORI Peterson, PILY (R) (N) Pharm. Details Pharmacologic stress testing was performed using 0.4mg per 5ml of regadenoson given intravenously ove r 7-10 seconds. Stress Symptoms No chest pain or symptoms. POST EXERCISE Reason for Termination: Infusion complete Max HR: 104 bpm Max Blood Pressure: 121/55mmHg Chest Pain: No. Arrhythmia: No. ST Change: No. INTERPRETATION Stress EKG Conclusion: No evidence of stress induced EKG changes. Imaging Protocol IMAGE PROTOCOL: Rest Tc-99m/stress Tc-99m 1 day Rest: Stress: Viability: Radiopharm.Tc99m [id number] Sestamibi Dose11.2mCi 33mCi Duration 16min. 13min. Img Date 12/05/2018 12/05/2018 Inj-Img Dzkh29and. 60min. Rest Admin Site:IV - Right ForearmAdministrator:JOURDAN Spicer Stress Admin Site: IV - Right ForearmAdministrator: TORI Peterson, PILY (R)(N) STRESS DATA End Diast. Vol.98.0mlLVEDV index BSA46.0ml End Syst. Vol.41.0mlLVESV index BSA19.0ml Myocardial Utlo418.0gEject. Zdkmndwf50.0% Stress Scores Regional WT2.00Summed WT15.00 Regional WM0.00Summed WM9.00 The rest and stress images show normal perfusion, normal contraction and thickening. LV Perf. Quant 17 Seg. SSS0.00 17 Seg. SRS0.00 17 Seg. SDS0.00 Stress Defect Extent (% LAD)0.00Rest Defect Extent (% LAD)0.00Rev. Defect Extent (% LAD)0.00 Stress Defect Extent (% LCX) 16.30Rest Defect Extent (% LCX)0.00Rev. Defect Extent (% LCX)16.30 Stress Defect Extent (% RCA)0.00Rest Defect Extent (% RCA)0.00Rev. Defect Extent (% RCA)0.00 Stress Defect Extent (% DERIK)2.80Rest Defect Extent (% DERIK)0.00Rev. Defect Extent (% DERIK)2.80 Other Information Quality:Good Risk Assessment: Low Risk Conclusion 1. No evidence of EKG changes with stress testing. 2. Normal perfusion at stress/rest. 3. Low risk study. 4. EF > 60%. Signed by : Garo Esparza, Electronically Approved : 12/05/2018 15:43:33
--- NOTE | 2018-12-05 15:57 | PDOC ---
CARDIO Progress Notes Date and Time Date of Service 12/05/18 Time of Evaluation 1215 Subjective Subjective: No Chest Pain, No shortness of breath Vitals Vitals Vital Signs Date Time Temp Pulse Resp B/P (MAP) Pulse Ox O2 Delivery O2 Flow Rate FiO2 12/05/18 14:51 97.7 94 14 138/77 (97) 98 Room Air 97.7 Weight Weight [ ] Input and Output Intake and Output Intake and Output 12/05/18 07:01 Intake Total 1066 ml Balance 1066 ml Intake Oral 1016 ml IV Total 50 ml Laboratory Labs Laboratory Tests Test 12/04/18 17:00 12/04/18 21:13 12/05/18 07:35 12/05/18 11:42 Glucose (Fingerstick) 255 mg/dL (70-99) 119 mg/dL (70-99) 142 mg/dL (70-99) 142 mg/dL (70-99) Physical Exam HEENT: Neck Supple W Full Motion Chest: Symmetric LUNGS: Clear to Auscultation Heart: S1S2, RRR Extremities: No Edema, Other (left BKA) Neurology: alert, follow commands Assessment Assessment 1. Chest pain, atypical; troponin series WNL- AMI ruled out. MPI pending to rule out ischemia. If WNL, may discharge from a CV standpoint 2. ESRD on HD; as per nephrology 3. Hypertension; controlled 4. DM, II; as per PCP JUSTIN MG APRN Dec 05, 2018 15:57
[2018-12-05] MEDS ORDERED: LISINOPRIL 10 MG TABLET PO SCH (16:00)
--- NOTE | 2018-12-05 16:11 | DS ---
DATE OF DISCHARGE: 12/05/2018 ADMISSION DIAGNOSIS: Chest pain. PROCEDURES: Cardiac stress test, which was negative. CONSULTS: Dr. Cottrell. HOSPITAL COURSE: The patient is a pleasant 38-year-old male who has end-stage renal disease, hypertension and diabetes. He presented to ER with chest pain rated at 7/10. He had some associated nausea. It had been occurring for several days. We admitted the patient and consulted Cardiology. He went for a cardiac stress test this morning, the results were apparently negative. I just discussed the case with the nurse. We are going to let the patient go home and see his primary care doctor as outpatient. DISPOSITION: Home. ACTIVITY: As tolerated. DIET: Low sodium. MEDICATIONS: Please see the MRAD. TOTAL TIME: 31 minutes. PRATIBHA BRITO DO DR: ROMERO/shirin JOB#: [id number] / [id number]
--- NOTE | 2018-12-05 16:29 | NUR ---
Discharge Note: MARY RUIZ Discharge instructions and discharge home medications reviewed with Patient and a copy given. All questions have been answered and understanding verbalized. The following instructions and handouts were given: discharge instructions, med list, follow ups Discontinued lines and drains: 22 right ac intact. Patient discharged to home with self care. Patient refused Home Health services at discharge. Patient lives with Brother Abisai.
[2018-12-05 17:39] VITALS: BP 127/77
[2018-12-10] MEDS ORDERED: ERGOCALCIFEROL (VITAMIN D2) 50,000 UNIT CAPSULE. PO SCH (09:00)
== END 2018-12-05 17:45 | disposition home or self-care (01) | DRG 391 ==
LOC: ER 09:35 → 2 NORTH 14:06
PROVIDERS: ADMIT Internal Medicine; ATTEND Internal Medicine
DX: K21.9 Gastro-esophageal reflux disease without esophagitis (principal); N18.6 End stage renal disease; I50.20 Unspecified systolic (congestive) heart failure; I13.2 Hypertensive heart and chronic kidney disease with heart failure and with stage 5 chronic kidney disease, or end stage renal disease; E11.22 Type 2 diabetes mellitus with diabetic chronic kidney disease; E78.00 Pure hypercholesterolemia, unspecified; E78.5 Hyperlipidemia, unspecified; E21.3 Hyperparathyroidism, unspecified; D63.1 Anemia in chronic kidney disease; Z89.422 Acquired absence of other left toe(s); Z99.2 Dependence on renal dialysis; Z82.49 Family history of ischemic heart disease and other diseases of the circulatory system; Z79.4 Long term (current) use of insulin
CPT/HCPCS: 36415; 71045; 78452; 80053; 82962; 83690; 83735; 83880; 84100; 84484; 85025; 87641; 93005; 93017; 96374; A9500; J0690; J1644; J1815; J2785; 99285-25

== ENCOUNTER 2019-02-11 07:40 | Emergency (ER) | payer MEDICARE, OTHER ==
[~2019-02-11] VITALS: Ht 180.3 cm; Wt 95.3 kg
[~2019-02-11 07:40] MED LIST changes: +FOLI1CAP10 PO
[2019-02-11 08:27] LABS: BASO # 0.1 x10^3/uL (0.0-0.2); BASO % 1 % (0-3); EOS # 0.1 x10^3/uL (0.0-0.7); EOS % 1 % (0-3); HEMATOCRIT 37.8 % (39.0-53.0); HEMOGLOBIN 12.2 g/dL (13.0-17.5); LYMPH # 1.3 x10^3/uL (1.0-4.8); LYMPH % 14 % (24-48); MEAN CORPUSCULAR HEMOGLOBIN 31 pg (25-35); MEAN CORPUSCULAR HGB CONC 32 g/dL (31-37); MEAN CORPUSCULAR VOLUME 95 fL (79-100); MONO # 0.5 x10^3/uL (0.0-1.1); MONO % 6 % (0-9); NEUT # 7.3 x10^3uL (1.8-7.7); NEUT % 79 % (31-73); PLATELET COUNT 304 x10^3/uL (140-400); RED CELL DISTRIBUTION WIDTH 14.7 % (11.5-14.5); WHITE BLOOD COUNT 9.3 x10^3/uL (4.0-11.0)
[2019-02-11 08:41] LABS: CALCIUM 9.5 mg/dL (8.5-10.1); CREATININE 10.2 mg/dL (0.7-1.3); GFR 5.8; POTASSIUM 4.6 mmol/L (3.5-5.1)
[2019-02-11 08:48] LABS: ALBUMIN 3.5 g/dL (3.4-5.0); ALBUMIN/GLOBULIN RATIO 0.9 (1.0-1.7); MAGNESIUM 2.8 mg/dL (1.8-2.4); TOTAL BILIRUBIN 0.4 mg/dL (0.2-1.0); TOTAL PROTEIN 7.5 g/dL (6.4-8.2)
[2019-02-11 09:00] VITALS: BP 110/56
--- NOTE | 2019-02-11 09:00 | RAD ---
Exam performed: One view chest. Indication: HYPOGLYCEMIA Date of Service: 02/11/2019 8:02 AM Comparison: One view chest from 12/13/2018. Single AP upright portable view chest findings: Cardiomediastinal silhouette is within limits of normal. There is new mild blunting of the right costophrenic angle with haziness in the lateral right lung base likely a combination of infiltrate with atelectasis and tiny right effusion. The bony structures are normal. Impression: Right basilar infiltrate or atelectasis with tiny pleural effusion. Electronically signed by: Joanna Harris MD (02/11/2019 8:58 AM) [facility]
--- NOTE | 2019-02-11 09:20 | PHYS DOC ---
Past Medical History Past Medical History: Diabetes-Type I, High Cholesterol, Hypertension, Pneumonia, Renal Failure Past Surgical History: Other Additional Past Surgical Histo: LEFT ARM FISTULA, LEFT BKA, CHEST TUBE PLACEMENT R SIDE Alcohol Use: Occasionally Drug Use: None Adult General Chief Complaint Chief Complaint: HYPOGLYCEMIA HPI HPI Patient is a 38 year old male brought in by EMS because of unresponsiveness. Patient had diabetes mellitus on insulin and chronic renal failure on dialysis and he had 6 units of fast acting insulin and 20 units of long-acting insulin last night around 2100. Patient was found unresponsive this morning when his brother tried to wake him up to go to his dialysis appointment. EMS reported that patient was at a cold house without running heater and was cold and diaphoretic with blood sugar of 43. Patient had 250 mL of D10 with increase of blood sugar to 190s and became alert and oriented with GCS of 15. Patient states he does not remember what happened to him and maybe he took too much insulin last night instead of 20 units. Patient denies nausea, vomiting, chest pain, shortness of breath, fever and chills. Patient states he does not make urine usually and denies urinary frequency or dysuria. Review of Systems Review of Systems Constitutional: Denies fever or chills [] Eyes: Denies change in visual acuity, redness, or eye pain [] HENT: Denies nasal congestion or sore throat [] Respiratory: Denies cough or shortness of breath [] Cardiovascular: No additional information not addressed in HPI [] GI: Denies abdominal pain, nausea, vomiting, bloody stools or diarrhea [] : Denies dysuria or hematuria [] Musculoskeletal: Denies back pain or joint pain [] Integument: Denies rash or skin lesions [] Neurologic: Denies headache, focal weakness or sensory changes [] Endocrine: Denies polyuria or polydipsia [] All other systems were reviewed and found to be within normal limits, except as documented in this note. Allergies Allergies Allergies Coded Allergies Type Severity Reaction Last Updated Verified No Known Drug Allergies 10/23/18 No Physical Exam Physical Exam Constitutional: Well nourished, no acute distress, non-toxic appearance. [] HENT: Normocephalic, atraumatic, oropharynx moist. Eyes: PERRLA, EOMI, conjunctiva normal, no discharge. [] Neck: Normal range of motion, no tenderness, supple, no stridor. [] Cardiovascular:Heart rate regular rhythm, no murmur [] Lungs & Thorax: Bilateral breath sounds clear to auscultation [] Abdomen: Bowel sounds normal, soft, no tenderness, no masses, no pulsatile masses. [] Skin: Warm, dry, no erythema, no rash. [] Back: No tenderness, no CVA tenderness. [] Extremities: No tenderness, no cyanosis, no clubbing, ROM intact, no edema, left below knee amputation related to diabetic complication. [] Neurologic: Alert and oriented X 3, normal motor function, normal sensory function, no focal deficits noted. [] Psychologic: Affect normal, mood normal. [] Current Patient Data Vital Signs Vital Signs Date Time Temp Pulse Resp B/P (MAP) Pulse Ox O2 Delivery O2 Flow Rate FiO2 02/11/19 09:30 97.5 97.5 02/11/19 09:00 88 18 110/56 (74) 100 Room Air Lab Values Laboratory Tests Test 02/11/19 07:45 02/11/19 08:15 02/11/19 09:35 Glucose (Fingerstick) 119 mg/dL (70-99) H 124 mg/dL (70-99) H White Blood Count 9.3 x10^3/uL (4.0-11.0) Red Blood Count 4.00 x10^6/uL (4.30-5.70) L Hemoglobin 12.2 g/dL (13.0-17.5) L Hematocrit 37.8 % (39.0-53.0) L Mean Corpuscular Volume 95 fL (79-100) Mean Corpuscular Hemoglobin 31 pg (25-35) Mean Corpuscular Hemoglobin Concent 32 g/dL (31-37) Red Cell Distribution Width 14.7 % (11.5-14.5) H Platelet Count 304 x10^3/uL (140-400) Neutrophils (%) (Auto) 79 % (31-73) H Lymphocytes (%) (Auto) 14 % (24-48) L Monocytes (%) (Auto) 6 % (0-9) Eosinophils (%) (Auto) 1 % (0-3) Basophils (%) (Auto) 1 % (0-3) Neutrophils # (Auto) 7.3 x10^3uL (1.8-7.7) Lymphocytes # (Auto) 1.3 x10^3/uL (1.0-4.8) Monocytes # (Auto) 0.5 x10^3/uL (0.0-1.1) Eosinophils # (Auto) 0.1 x10^3/uL (0.0-0.7) Basophils # (Auto) 0.1 x10^3/uL (0.0-0.2) Sodium Level 138 mmol/L (136-145) Potassium Level 4.6 mmol/L (3.5-5.1) Chloride Level 98 mmol/L (98-107) Carbon Dioxide Level 22 mmol/L (21-32) Anion Gap 18 (6-14) H Blood Urea Nitrogen 69 mg/dL (8-26) H Creatinine 10.2 mg/dL (0.7-1.3) H Estimated GFR (Cockcroft-Gault) 5.8 BUN/Creatinine Ratio 7 (6-20) Glucose Level 139 mg/dL (70-99) H Lactic Acid Level 0.9 mmol/L (0.4-2.0) Calcium Level 9.5 mg/dL (8.5-10.1) Magnesium Level 2.8 mg/dL (1.8-2.4) H Total Bilirubin 0.4 mg/dL (0.2-1.0) Aspartate Amino Transferase (AST) 22 U/L (15-37) Alanine Aminotransferase (ALT) 25 U/L (16-63) Alkaline Phosphatase 135 U/L (46-116) H Creatine Kinase 119 U/L (39-308) Troponin I Quantitative < 0.017 ng/mL (0.000-0.055) UT-Owz-B-Type Natriuretic Peptide 645 pg/mL (0-124) H Total Protein 7.5 g/dL (6.4-8.2) Albumin 3.5 g/dL (3.4-5.0) Albumin/Globulin Ratio 0.9 (1.0-1.7) L Laboratory Tests 02/11/19 08:15 Laboratory Tests 02/11/19 08:15 EKG EKG EKG interpreted by me. EKG at 0 751 showed normal sinus rhythm at rate of 88, poor R-wave progress in anteroseptal leads, no acute ST and T-wave abnormalities. Radiology/Procedures Radiology/Procedures [] Course & Med Decision Making Course & Med Decision Making Pertinent Labs reviewed. (See chart for details) Evaluation of patient in ER showed 38-year-old male patient with history of diabetes mellitus on hemodialysis brought in because of tendon of consciousness related to hypoglycemia that resolved after 250 mL of 10% dextrose. Patient was alert and oriented in ER. Labs showed elevation of BUN/creatinine and mild elevation of magnesium without potassium abnormalities. Patient was at the unkempt and very cold home and had temperature of 93 at arrival to ER that gradually increased to 95.5 after using Arin Hugger warming blanket. Dialysis Center was contacted and they are able to resume her dialysis after discharge from emergency room. Patient had stable blood sugar and tolerated oral intake and discharged to dialysis center with his brother who was willing to take him today to the dialysis center. Patient was advised to follow-up with his primary care physician regarding insulin dose and does not take extra dose of insulin. Dragon Disclaimer Dragon Disclaimer This electronic medical record was generated, in whole or in part, using a voice recognition dictation system. Departure Departure Impression: Primary Impression: Hypoglycemia Additional Impressions: Altered level of consciousness Chronic renal failure Missed dialysis Hypermagnesemia Hypothermia Disposition: HOME, SELF-CARE (at 1918 to go to dialysis center today) Condition: IMPROVED Referrals: UNKNOWN PCP NAME (PCP) Patient Instructions: Hypoglycemia (Low Blood Sugar) Additional Instructions: Follow-up with your dialysis appointment today Do not take magnesium supplement Follow-up with your bankman and primary care physician as needed Return to emergency room as needed Problem Qualifiers Additional Impressions: Chronic renal failure Chronic kidney disease stage: unspecified stage Qualified Codes: N18.9 - Chronic kidney disease, unspecified Hypothermia Encounter type: sequela Qualified Codes: T68.XXXS - Hypothermia, JUWAN Barajas MD Feb 11, 2019 09:20
--- NOTE | 2019-02-11 14:12 | EKG ---
[facility] [address] [place] [address] Test Date: 2019-02-11 Test Time: 07:51:06 Pat Name: MARY RUIZ Department: Room: Gender: M Channel Marketing Manager: : 1980 Requested By: JUWAN LOPES Order Number: [id number] Reading MD: Garo Esparza MD Measurements Intervals Graff Rate: 88 P: 28 [place]: 168 QRS: 12 QRSD: 100 T: 36 QT: 362 QTc: 441 Interpretive Statements SINUS RHYTHM NON-SPECIFIC ST/T CHANGES Electronically Signed On 02-14-2019 12:22:25 CDT by Garo Esparza MD
== END 2019-02-11 09:31 | disposition home or self-care (01) ==
LOC: ER 07:40
DX: T68.XXXA Hypothermia, initial encounter (principal); E10.649 Type 1 diabetes mellitus with hypoglycemia without coma; E83.41 Hypermagnesemia; E10.22 Type 1 diabetes mellitus with diabetic chronic kidney disease; I12.9 Hypertensive chronic kidney disease with stage 1 through stage 4 chronic kidney disease, or unspecified chronic kidney disease; N18.9 Chronic kidney disease, unspecified; E78.00 Pure hypercholesterolemia, unspecified; Z79.4 Long term (current) use of insulin; Z99.2 Dependence on renal dialysis; X31.XXXA Exposure to excessive natural cold, initial encounter
CPT/HCPCS: 36415; 71045; 80053; 82550; 82962; 83605; 83735; 83880; 84484; 85025; 93005; 99285-25

== ENCOUNTER 2020-11-30 17:51 | Inpatient (IN) | payer MEDICARE, OTHER ==
[~2020-11-30] VITALS: Ht 180.3 cm; Wt 98.5 kg
[~2020-11-30 17:51] MED LIST changes: +DOXY50CA PO; +FENO145T3 PO; -FENO145T30 PO; +FERR210T PO; +FLUT16SP NS; -LISI-334 PO; +LISI10TA16 PO; -LISI10TA2 PO; +LISI20TA18 PO; +NIFE30TA95 PO; +PANT40TA77 PO; +PATI8.4P PO
[2020-11-30 18:11] LABS: BASO # 0.2 x10^3/uL (0.0-0.2); BASO % 2 % (0-3); EOS # 0.6 x10^3/uL (0.0-0.7); EOS % 6 % (0-3); HEMATOCRIT 34.2 % (39.0-53.0); HEMOGLOBIN 11.6 g/dL (13.0-17.5); LYMPH # 2.5 x10^3/uL (1.0-4.8); LYMPH % 26 % (24-48); MEAN CORPUSCULAR HEMOGLOBIN 33 pg (25-35); MEAN CORPUSCULAR HGB CONC 34 g/dL (31-37); MEAN CORPUSCULAR VOLUME 95 fL (79-100); MONO # 0.9 x10^3/uL (0.0-1.1); MONO % 10 % (0-9); NEUT # 5.4 x10^3/uL (1.8-7.7); NEUT % 56 % (31-73); PLATELET COUNT 267 x10^3/uL (140-400); RED BLOOD COUNT 3.59 x10^6/uL (4.30-5.70); RED CELL DISTRIBUTION WIDTH 14.2 % (11.5-14.5); WHITE BLOOD COUNT 9.6 x10^3/uL (4.0-11.0)
--- NOTE | 2020-11-30 18:11 | PHYS DOC ---
Past Medical History Past Medical History: Diabetes-Type I, High Cholesterol, Hypertension, Pn eumonia, Renal Failure Past Surgical History: Other Additional Past Surgical Histo: LEFT ARM FISTULA, LEFT BKA, CHEST TUBE PLACEMENT R SIDE Smoking Status: Never Smoker Alcohol Use: Occasionally Drug Use: None General Adult HPI: HPI: Patient is a 40 year old male with history of diabetes type 1, high cholesterol, hypertension, kidney disease on dialysis Wednesday last dialyzed yesterday who presents to the ED today complaining of 8 out of 10 sharp mid substernal chest pain nonradiating nature, symptoms began this evening after helping his brother shovel snow. Patient states symptoms are worse on activity. Denies anything specifically relieving the pain. He states he was given aspirin 325 mg, fentanyl and Zofran by EMS with no relief. Review of Systems: Review of Systems: Constitutional: Denies fever or chills. [] Eyes: Denies change in visual acuity. [] HENT: Denies nasal congestion or sore throat. [] Respiratory: Denies cough or shortness of breath. [] Cardiovascular: Reports chest pain GI: Denies abdominal pain, nausea, vomiting, bloody stools or diarrhea. [] : Denies dysuria. [] Musculoskeletal: Denies back pain or joint pain. [] Integument: Denies rash. [] Neurologic: Denies headache, focal weakness or sensory changes. [] Psychiatric: Denies depression or anxiety. [] Heart Score: HEART Score for Chest Pain: HEART Score for Chest Pain Response (Comments) Value History Slighlty/Non-Suspicious 0 ECG Normal 0 Age < 45 0 Risk Factors >3 Risk Factors or Hx CAD 2 Troponin < Normal Limit 0 Total 2 Risk Factors: Risk Factors: DM, Current or recent (<one month) smoker, HTN, HLP, family history of CAD, obesity. Risk Scores: Score 0 - 3: 2.5% MACE over next 6 weeks - Discharge Home Score 4 - 6: 20.3% MACE over next 6 weeks - Admit for Clinical Observation Score 7 - 10: 72.7% MACE over next 6 weeks - Early Invasive Strategies Allergies: Allergies: Allergies Coded Allergies Type Severity Reaction Last Updated Verified No Known Drug Allergies 10/23/18 No Physical Exam: PE: Constitutional: Well developed, well nourished, no acute distress, non-toxic appearance. [] HENT: Normocephalic, atraumatic, bilateral external ears normal, oropharynx moist, no oral exudates, nose normal. [] Eyes: PERRLA, EOMI, conjunctiva normal, no discharge. [] Neck: Normal range of motion, no tenderness, supple, no stridor. [] Cardiovascular:Heart rate regular rhythm, no murmur [] Lungs & Thorax: Bilateral breath sounds clear to auscultation [] Right upper chest with a temporary dialysis catheter Abdomen: Bowel sounds normal, soft, no tenderness, no masses, no pulsatile masses. [] Skin: Warm, dry, no erythema, no rash. [] Back: No tenderness, no CVA tenderness. [] Extremities: No tenderness, no cyanosis, no clubbing, ROM intact, no edema. [] Neurologic: Alert and oriented X 3, normal motor function, normal sensory function, no focal deficits noted. [] Psychologic: Affect normal, judgement normal, mood normal. [] EKG: EK Interpreted by Dr. Silver sinus rhythm HR 85 no STEMI[] Radiology/Procedures: Radiology/Procedures: []PROCEDURE: PORTABLE CHEST 1V AP chest. HISTORY: Chest pain AP view was taken of the chest. There is a tunneled dialysis catheter on the right. Lungs are free of infiltrates. There is a stent in a subclavian vessel on the left. There are no infiltrates. Heart is normal in size. IMPRESSION: 1. No acute infiltrates. Electronically signed by: Clarke Lockhart MD (11/30/2020 6:33 PM) [facility] DICTATED and SIGNED BY: CLARKE LOCKHART MD DATE: 11/30/20 [id number] 0 Course & Med Decision Making: Course & Med Decision Making Pertinent Labs and Imaging studies reviewed. (See chart for details) This is a 40-year-old male patient presented to the ED today complaining of chest pain that began after shoveling snow this evening. Patient has multiple risk factors includes being overweight, diabetes hypertension and on dialysis. Patient was given aspirin full dose and continue with Zofran via EMS Vitals on arrival to the ED temperature 98.2, heart rate 81 respiration 18, b lood pressure 148/92, O2 sats 98% Negative EKG, troponin 0.017. CBC with a normal WBC, hemoglobin 11.6, hematocrit 34.2, glucose 200, anion gap 8, potassium 5.4. Chest x-ray is negative Spoke with Dr. Mckee who accepted patient for admission Routine consult placed for cardiology and nephrology Timoteo Disclaimer: Timoteo Disclaimer: This electronic medical record was generated, in whole or in part, using a voice recognition dictation system. Departure Departure Impression: Primary Impression: Chest pain Qualified Codes: R07.9 - Chest pain, unspecified Additional Impression: ESRD on hemodialysis Disposition: ADMITTED INPT THIS HOSP Condition: STABLE Referrals: BENI EL MD (PCP) ANAM DOUGHERTY APRN Nov 30, 2020 18:11
[2020-11-30] MEDS ORDERED: NITROGLYCERIN SUBLINGUAL 0.4 MG BOTTLE OF 25. SL PRN ×2 (18:15→21:00)
[2020-11-30 18:21] LABS: PROTHROMBIN TIME PATIENT 13.3 SEC (11.7-14.0)
[2020-11-30 18:22] LABS: GFR 7.6; POTASSIUM 5.4 mmol/L (3.5-5.1)
[2020-11-30 18:28] LABS: ALBUMIN 3.6 g/dL (3.4-5.0); ALBUMIN/GLOBULIN RATIO 0.9 (1.0-1.7); MAGNESIUM 2.5 mg/dL (1.8-2.4); TOTAL BILIRUBIN 0.4 mg/dL (0.2-1.0); TOTAL PROTEIN 7.6 g/dL (6.4-8.2)
--- NOTE | 2020-11-30 18:36 | RAD ---
AP chest. HISTORY: Chest pain AP view was taken of the chest. There is a tunneled dialysis catheter on the right. Lungs are free of infiltrates. There is a stent in a subclavian vessel on the left. There are no infiltrates. Heart is normal in size. IMPRESSION: 1. No acute infiltrates. Electronically signed by: Clarke Lockhart MD (11/30/2020 6:33 PM) [facility]
[2020-11-30] MEDS: MORPHINE SULFATE 4 MG/ML VIAL. IV/SQ PRN ×2 (18:38→19:13)
[2020-11-30] MEDS ORDERED: DEXTROSE 50% 25 GM / 50ML DISP.SYRIN. IV PRN (19:30)
[2020-11-30] MEDS ORDERED: fentaNYL PF VIAL 100 MCG/2 ML VIAL IVP PRN (19:45)
[2020-11-30] MEDS ORDERED: ONDANSETRON PF 4 MG/2 ML VIAL. IVP PRN (19:45)
[2020-11-30] MEDS ORDERED: NITROGLYCERIN OINT 1 GM PACKET. TP ONE (19:45)
[2020-11-30] MEDS ORDERED: ACETAMINOPHEN 325 MG TABLET. PO PRN (19:45)
[2020-11-30] MEDS: SENNOSIDES/DOCUSATE 8.6/50MG TABLET. PO SCH (21:00)
[2020-11-30] MEDS ORDERED: MORPHINE SULFATE 4 MG/ML VIAL. IV PRN (21:00)
[2020-11-30] MEDS: TAMSULOSIN 0.4 MG CAP.ER.24H. PO SCH (22:58)
[2020-11-30] MEDS: ATORVASTATIN CALCIUM 40 MG TABLET. PO SCH (22:58)
[2020-11-30] MEDS: METOPROLOL TART IMMED RELEASE 25 MG TABLET. PO SCH (22:59)
[2020-11-30] MEDS: HEPARIN for SUB-Q USE 5,000 UNIT/ML VIAL. SQ SCH (23:03)
[2020-11-30] MEDS: INSULIN GLARGINE SYRINGE. SQ SCH (23:04)
[2020-11-30 23:07] VITALS: BP 115/72
[2020-12-01 02:59] VITALS: BP 125/80
[2020-12-01] MEDS: HEPARIN for SUB-Q USE 5,000 UNIT/ML VIAL. SQ SCH ×3 (06:10→20:30)
[2020-12-01 06:36] VITALS: BP 109/58
[2020-12-01] MEDS: INSULIN LISPRO 300 UNITS/3 ML VIAL. SQ SCH ×6 (08:00→17:29)
[2020-12-01] MEDS: SEVELAMER CARBONATE 800 MG TABLET. PO SCH ×3 (08:00→17:22)
--- NOTE | 2020-12-01 08:14 | PDOC1 ---
History and Physical Date of Admission Date of Admission DATE: 11/30/20 TIME: 19:57 Identification/Chief Complaint Chief Complaint Chest pain Source Source: Patient History of Present Illness History of Present Illness Mr Ramirez is a 40yo M w/ PMHx HTN, Depression, prior MRSA bacteremia, PAD s/p L BKA, DM2, ESRD on HD who presents via private vehicle from [place], [place] c/o chest pain. CP is squeezing in his precordial area. Notes the pain is 8 out of 10 sharp mid substernal chest pain nonradiating nature, symptoms began this evening after helping his brother shovel snow. Patient states symptoms are worse on activity. Denies anything specifically relieving the pain. He states he was given aspirin 325 mg, fentanyl and Zofran by EMS with no relief. The patient denies sensation of impending doom. No diaphoresis no nausea or vomiting was associated with the symptoms. The episode continues currently. EKG normal sinus rhythm rate of [address] segment or T wave abnormalities. Chest radiograph with no acute abnormalities. Right tunneled HD cath in good position. Labs with WBC 9.6, Hb 11.6, platelets 267, NA 137, K5.4, BUN 55, CR 8, glucose 200 LFTs within normal laboratory limits, albumin 3.6, magnesium 2.5, INR 1.1 Admitted for further diagnosis and treatment. Past Medical History Cardiovascular: HTN, Hyperlipidemia Pulmonary: No pertinent hx CENTRAL NERVOUS SYSTEM: Other GI: No pertinent hx Heme/Onc: Anemia NOS Psych: No pertinent hx Rheumatologic: No pertinent hx Infectious disease: No pertinent hx Renal/: Chronic renal failure Endocrine: Diabetes Past Surgical History Past Surgical History: Other Family History Family History: Heart Disease Social History Smoke: No ALCOHOL: none Drugs: None Current Problem List Problem List Problems Medical Problems: (1) Chest pain Status: Acute Current Medications Current Medications Current Medications Nitroglycerin (Nitrostat) 0.4 mg PRN Q5MIN PRN SL CP RATING > 1/10; Start 11/30/20 at 18:15; Stop 11/30/20 at 21:04; Status DC Morphine Sulfate (Morphine Sulfate) 4 mg PRN Q15MIN PRN IV/SQ PAIN GREATER THAN 3/10 Last administered on 11/30/20at 19:13; Start 11/30/20 at 18:15; Stop 11/30/20 at 19:33; Status DC Aspirin (Ecotrin) 81 mg DAILY PO ; Start 12/01/20 at 09:00 Atorvastatin Calcium (Lipitor) 40 mg HS PO Last administered on 11/30/20at 22:58; Start 11/30/20 at 21:00 Metoprolol Tartrate (Lopressor) 12.5 mg BID PO Last administered on 11/30/20at 22:59; Start 11/30/20 at 21:00 Nifedipine (Procardia Xl) 30 mg DAILY PO ; Start 12/01/20 at 09:00 Pantoprazole Sodium (Protonix) 40 mg DAILYAC PO ; Start 12/01/20 at 07:30 Sevelamer Carbonate (Renvela) 2,400 mg TIDWMEALS PO ; Start 12/01/20 at 08:00 Tamsulosin HCl (Flomax) 0.4 mg HS PO Last administered on 11/30/20at 22:58; Start 11/30/20 at 21:00 Insulin Human Lispro (HumaLOG) 6 units TIDWMEALS SQ ; Start 12/01/20 at 08:00 Insulin Glargine (Lantus Syringe) 20 unit QHS SQ Last administered on 11/30/20at 23:04; Start 11/30/20 at 21:00 Dextrose (Dextrose 50%-Water Syringe) 12.5 gm PRN Q15MIN PRN IV SEE COMMENTS; Start 11/30/20 at 19:30 Nitroglycerin (Nitro-Bid Oint) 1 inch 1X ONCE TP ; Start 11/30/20 at 19:45; Stop 11/30/20 at 19:46; Status DC Heparin Sodium (Porcine) (Heparin Sodium) 5,000 unit Q8HRS SQ Last administered on 12/01/20at 06:10; Start 11/30/20 at 22:00 Ondansetron HCl (Zofran) 4 mg PRN Q6HRS PRN IVP NAUSEA/VOMITING; Start 11/30/20 at 19:45 Acetaminophen (Tylenol) 650 mg PRN Q6HRS PRN PO Headaches, Temp > 101.5F; Start 11/30/20 at 19:45 Senna/Docusate Sodium (Senna Plus) 1 tab BID PO ; Start 11/30/20 at 21:00 Psyllium Hydrophilic Mucilloid (Metamucil Fiber Packet) 1 pkt QHS PO ; Start 12/01/20 at 21:00 Olanzapine (ZyPREXA ZYDIS) 5 mg PRN BID PRN PO ANXIETY / AGITATION; Start 11/30/20 at 19:45 Fentanyl Citrate (Fentanyl 2ml Vial) 25 mcg PRN Q3HRS PRN IVP SEVERE PAIN 7-10 Last administered on 11/30/20at 21:26; Start 11/30/20 at 19:45 Insulin Human Lispro (HumaLOG) 0-7 UNITS TIDWMEALS SQ ; Start 12/01/20 at 08:00 Morphine Sulfate (Morphine Sulfate) 4 mg PRN Q2HR PRN IV PAIN; Start 11/30/20 at 21:00; Stop 12/01/20 at 20:59 Nitroglycerin (Nitrostat) 0.4 mg PRN Q5MIN PRN SL CHEST PAIN; Start 11/30/20 at 21:00; Stop 12/01/20 at 20:59 Active Scripts Active Reported Protonix (Pantoprazole Sodium) 40 Mg Tablet.dr 40 Mg PO DAILYAC Nifedipine Er (Nifedipine) 30 Mg Tab.er.24 1 Tab PO DAILY Doxycycline Hyclate 50 Mg Capsule 1 Cap PO BID Ferric Citrate 210 Mg Tablet 210 Mg PO DAILY Veltassa (Patiromer Calcium Sorbitex) 8.4 Gm Powd.pack 8.4 Gm PO DAILY Fluticasone Propionate Nasal [place] (Fluticasone Propionate) 16 Gm [place].susp 2 [place] NS DAILY Levemir (Insulin Detemir) 100 Unit/1 Ml Vial 20 Unit SQ HS Novolog (Insulin Aspart) 100 Unit/1 Ml Cartridge 6 Unit SQ TIDWMEALS Lisinopril 10 Mg Tablet 1 Tab PO QMWF Atorvastatin Calcium 40 Mg Tablet 40 Mg PO HS Fenofibrate (Fenofibrate Nanocrystallized) 145 Mg Tablet 1 Tab PO DAILY Cymbalta (Duloxetine Hcl) 60 Mg Capsule.dr 1 Cap PO DAILY Renvela (Sevelamer Carbonate) 800 Mg Tablet 2,400 Mg PO TIDWMEALS Vitamin D2 (Ergocalciferol (Vitamin D2)) 50,000 Unit Capsule 1 Cap PO WEEKLY Tamsulosin Hcl 0.4 Mg Cap.er.24h 1 Cap PO HS Metoprolol Tartrate 25 Mg Tablet 12.5 Mg PO BID Aspir 81 (Aspirin) 81 Mg Tablet.dr 81 Mg PO DAILY Allergies Allergies: Coded Allergies: No Known Drug Allergies (Unverified , 10/23/18) ROS General: YES: Fatigue, Malaise; No: Chills, Night Sweats, Appetite, Other PSYCHOLOGICAL ROS: YES: Anxiety, Depression; No: Behavioral Disorder, Concentration difficultie, Decreased libido, Disorientation, Hallucinations, Hostility, Irritablity, Memory difficulties, Mood Swings, Obsessive thoughts, Physical abuse, Sexual abuse, Sleep disturbances, Suicidal ideation, Other Eyes: No Blurry vision, No Decreased vision, No Double vision, No Dry eyes, No Excessive tearing, No Eye Pain, No Itchy Eyes, No Loss of vision, No Photophobia, No Scotomata, No Uses contacts, No Uses glasses, No Other HEENT: No: Heacaches, Visual Changes, Hearing change, Nasal congestion, Nasal discharge, Oral lesions, Sinus pain, Sore Throat, Epistaxis, Sneezing, Snoring, Tinnitus, Vertigo, Vocal changes, Other ALLERGY AND IMMUNOLOGY: No: Hives, Insect Bite Sensitivity, Itchy/Watery Eyes, Nasal Congestion, Post Nasal Drip, Seasonal Allergies, Other Hematological and Lymphatic: No: Bleeding Problems, Blood Clots, Blood Transfusions, Brusing, Night Sweats, Pallor, Swollen Lymph Nodes, Other ENDOCRINE: No: Breast Changes, Galactorrhea, Hair Pattern Changes, Hot Flashes, Malaise/lethargy, Mood Swings, Palpitations, Polydipsia/polyuria, Skin Changes, Temperature Intolerance, Unexpected Weight Changes, Other Breast: No New/Changing Breast Lumps, No Nipple changes, No Nipple discharge, No Other Respiratory: No: Cough, Hemoptysis, Orthopnea, Pleuritic Pain, Shortness of breath, SOB with excertion, Sputum Changes, Stridor, Tachypnea, Wheezing, Other Cardiovascular: yes Chest Pain; No Palpitations, No Orthopnea, No Paroxysmal Noc. Dyspnea, No Edema, No Lt Headedness, No Other Gastrointestinal: No Nausea, No Vomiting, No Abdominal Pain, No Diarrhea, No Constipation, No Melena, No Hematochezia, No Other Genitourinary: No Dysuria, No Frequency, No Incontinence, No Hematuria, No Retention, No Discharge, No Urgency, No Pain, No Flank Pain, No Other, No , No , No , No , No , No , No Musculoskeletal: No Gait Disturbance, No Joint Pain, No Joint Stiffness, No Joint Swelling, No Muscle Pain, No Muscular Weakness, No Pain In:, No Swelling In:, No Other Neurological: No Behavorial Changes, No Bowel/Bladder ControlChng, No Confusion, No Dizziness, No Gait Disturbance, No Headaches, No Impaired Coord/balance, No Memory Loss, No Numbness/Tingling, No Seizures, No Speech Problems, No Tremors, No Visual Changes, No Weakness, No Other Skin: No Dry Skin, No Eczema, No Hair Changes, No Lumps, No Mole Changes, No Mottling, No Nail Changes, No Pruritus, No Rash, No Skin Lesion Changes, No Other, No Acne Physical Exam General: Alert, Oriented X3, Cooperative, mild distress HEENT: PERRLA Lungs: Clear to auscultation, Normal air movement Heart: S1S2, RRR, no thrills, no rubs, no gallops, no murmurs Abdomen: Normal bowel sounds, Soft, No tenderness, No hepatosplenomegaly, No masses Rectal Exam: not examined Extremities: No clubbing, No cyanosis, No tenderness/swelling, Other (LLE BKA) Skin: No rashes, No breakdown, No significant lesion Neuro: Normal speech, Strength at 5/5 X4 ext, Normal tone, Sensation intact, Cranial nerves 3-12 NL, Reflexes 2+ Psych/Mental Status: Mental status NL, Mood NL Vitals Vitals Vital Signs Date Time Temp Pulse Resp B/P (MAP) Pulse Ox O2 Delivery O2 Flow Rate FiO2 12/01/20 06:36 97.7 73 19 109/58 (75) 98 Room Air 97.7 Labs Labs Laboratory Tests Test 11/30/20 18:00 12/01/20 00:05 12/01/20 06:54 White Blood Count 9.6 x10^3/uL (4.0-11.0) Red Blood Count 3.59 x10^6/uL (4.30-5.70) Hemoglobin 11.6 g/dL (13.0-17.5) Hematocrit 34.2 % (39.0-53.0) Mean Corpuscular Volume 95 fL (79-100) Mean Corpuscular Hemoglobin 33 pg (25-35) Mean Corpuscular Hemoglobin Concent 34 g/dL (31-37) Red Cell Distribution Width 14.2 % (11.5-14.5) Platelet Count 267 x10^3/uL (140-400) Neutrophils (%) (Auto) 56 % (31-73) Lymphocytes (%) (Auto) 26 % (24-48) Monocytes (%) (Auto) 10 % (0-9) Eosinophils (%) (Auto) 6 % (0-3) Basophils (%) (Auto) 2 % (0-3) Neutrophils # (Auto) 5.4 x10^3/uL (1.8-7.7) Lymphocytes # (Auto) 2.5 x10^3/uL (1.0-4.8) Monocytes # (Auto) 0.9 x10^3/uL (0.0-1.1) Eosinophils # (Auto) 0.6 x10^3/uL (0.0-0.7) Basophils # (Auto) 0.2 x10^3/uL (0.0-0.2) Prothrombin Time 13.3 SEC (11.7-14.0) Prothromb Time International Ratio 1.1 (0.8-1.1) Activated Partial Thromboplast Time 24 SEC (24-38) Sodium Level 137 mmol/L (136-145) Potassium Level 5.4 mmol/L (3.5-5.1) Chloride Level 96 mmol/L (98-107) Carbon Dioxide Level 33 mmol/L (21-32) Anion Gap 8 (6-14) Blood Urea Nitrogen 55 mg/dL (8-26) Creatinine 8.0 mg/dL (0.7-1.3) Estimated GFR (Cockcroft-Gault) 7.6 BUN/Creatinine Ratio 7 (6-20) Glucose Level 200 mg/dL (70-99) Calcium Level 10.0 mg/dL (8.5-10.1) Magnesium Level 2.5 mg/dL (1.8-2.4) Total Bilirubin 0.4 mg/dL (0.2-1.0) Aspartate Amino Transf (AST/SGOT) 17 U/L (15-37) Alanine Aminotransferase (ALT/SGPT) 15 U/L (16-63) Alkaline Phosphatase 101 U/L (46-116) Troponin I Quantitative < 0.017 ng/mL (0.000-0.055) < 0.017 ng/mL (0.000-0.055) QU-Eoc-L-Type Natriuretic Peptide 2292 pg/mL (0-124) Total Protein 7.6 g/dL (6.4-8.2) Albumin 3.6 g/dL (3.4-5.0) Albumin/Globulin Ratio 0.9 (1.0-1.7) Thyroid Stimulating Hormone (TSH) 1.242 uIU/mL (0.358-3.74) Glucose (Fingerstick) 208 mg/dL (70-99) Laboratory Tests Test 11/30/20 18:00 12/01/20 00:05 12/01/20 06:54 White Blood Count 9.6 x10^3/uL (4.0-11.0) Red Blood Count 3.59 x10^6/uL (4.30-5.70) Hemoglobin 11.6 g/dL (13.0-17.5) Hematocrit 34.2 % (39.0-53.0) Mean Corpuscular Volume 95 fL (79-100) Mean Corpuscular Hemoglobin 33 pg (25-35) Mean Corpuscular Hemoglobin Concent 34 g/dL (31-37) Red Cell Distribution Width 14.2 % (11.5-14.5) Platelet Count 267 x10^3/uL (140-400) Neutrophils (%) (Auto) 56 % (31-73) Lymphocytes (%) (Auto) 26 % (24-48) Monocytes (%) (Auto) 10 % (0-9) Eosinophils (%) (Auto) 6 % (0-3) Basophils (%) (Auto) 2 % (0-3) Neutrophils # (Auto) 5.4 x10^3/uL (1.8-7.7) Lymphocytes # (Auto) 2.5 x10^3/uL (1.0-4.8) Monocytes # (Auto) 0.9 x10^3/uL (0.0-1.1) Eosinophils # (Auto) 0.6 x10^3/uL (0.0-0.7) Basophils # (Auto) 0.2 x10^3/uL (0.0-0.2) Prothrombin Time 13.3 SEC (11.7-14.0) Prothromb Time International Ratio 1.1 (0.8-1.1) Activated Partial Thromboplast Time 24 SEC (24-38) Sodium Level 137 mmol/L (136-145) Potassium Level 5.4 mmol/L (3.5-5.1) Chloride Level 96 mmol/L (98-107) Carbon Dioxide Level 33 mmol/L (21-32) Anion Gap 8 (6-14) Blood Urea Nitrogen 55 mg/dL (8-26) Creatinine 8.0 mg/dL (0.7-1.3) Estimated GFR (Cockcroft-Gault) 7.6 BUN/Creatinine Ratio 7 (6-20) Glucose Level 200 mg/dL (70-99) Calcium Level 10.0 mg/dL (8.5-10.1) Magnesium Level 2.5 mg/dL (1.8-2.4) Total Bilirubin 0.4 mg/dL (0.2-1.0) Aspartate Amino Transf (AST/SGOT) 17 U/L (15-37) Alanine Aminotransferase (ALT/SGPT) 15 U/L (16-63) Alkaline Phosphatase 101 U/L (46-116) Troponin I Quantitative < 0.017 ng/mL (0.000-0.055) < 0.017 ng/mL (0.000-0.055) VE-Mqc-M-Type Natriuretic Peptide 2292 pg/mL (0-124) Total Protein 7.6 g/dL (6.4-8.2) Albumin 3.6 g/dL (3.4-5.0) Albumin/Globulin Ratio 0.9 (1.0-1.7) Thyroid Stimulating Hormone (TSH) 1.242 uIU/mL (0.358-3.74) Glucose (Fingerstick) 208 mg/dL (70-99) Images Images Chest radiograph: AP view was taken of the chest. There is a tunneled dialysis catheter on the right. Lungs are free of infiltrates. There is a stent in a subclavian vessel on the left. There are no infiltrates. Heart is normal in size. IMPRESSION: 1. No acute infiltrates. VTE Prophylaxis Ordered VTE Prophylaxis Devices: Yes VTE Pharmacological Prophylaxi: Yes Assessment/Plan Assessment/Plan A/P: Chest pain rule out acs, atypical in nature - seems to be costochondritis due to shoveling snow. Troponins and EKG negative. Cardiology consulted by ED. HTN - Cont meds DM type 1? - insulin requiring ESRD on HD on Wed - now MWF - currently with right tunneled HD cath, previously with LUE AV fistula, since tied off, now with maturing RUE fistula, has been using for a week. Nephrology consulted PAD - s/p L BKA Steal syndrome s/p left axillary venous stenting Depression Morbid Obesity H/o MRSA bacteremia - no sign of valvular involvement previously FEN - Renal ADA diet PPX - heparin FULL CODE Dispo - inpatient CVC 2 midnights Justifications for Admission Chest Pain Indications Serious Diagnosis?: Yes Justification for admission: Chest pain may be indicative of potentially serious diagnosis/diagnoses Please state condition(s) which will require inpatient level of care for further evaluation and management. Other Justification KACIE ANDERSON MD Dec 01, 2020 08:14
[2020-12-01] MEDS: ASPIRIN ENTERIC COATED 81 MG TABLET.DR. PO SCH (08:31)
[2020-12-01] MEDS: METOPROLOL TART IMMED RELEASE 25 MG TABLET. PO SCH ×2 (08:31→20:25)
[2020-12-01] MEDS: PANTOPRAZOLE 40 MG TABLET.DR. PO SCH (08:31)
[2020-12-01] MEDS: SENNOSIDES/DOCUSATE 8.6/50MG TABLET. PO SCH ×2 (08:34→20:24)
[2020-12-01] MEDS: NON FORMULARY ITEM (Patiromer Calcium Sorbitex (Veltassa) 8.4 GM) PO SCH (09:00)
[2020-12-01 09:06] LABS: BASO # 0.1 x10^3/uL (0.0-0.2); BASO % 2 % (0-3); EOS # 0.7 x10^3/uL (0.0-0.7); EOS % 10 % (0-3); HEMATOCRIT 31.6 % (39.0-53.0); HEMOGLOBIN 10.5 g/dL (13.0-17.5); LYMPH # 2.1 x10^3/uL (1.0-4.8); LYMPH % 29 % (24-48); MEAN CORPUSCULAR HEMOGLOBIN 32 pg (25-35); MEAN CORPUSCULAR HGB CONC 33 g/dL (31-37); MEAN CORPUSCULAR VOLUME 96 fL (79-100); MONO # 0.7 x10^3/uL (0.0-1.1); MONO % 10 % (0-9); NEUT # 3.7 x10^3/uL (1.8-7.7); NEUT % 50 % (31-73); PLATELET COUNT 203 x10^3/uL (140-400); RED BLOOD COUNT 3.29 x10^6/uL (4.30-5.70); RED CELL DISTRIBUTION WIDTH 14.4 % (11.5-14.5); WHITE BLOOD COUNT 7.3 x10^3/uL (4.0-11.0)
[2020-12-01 09:37] LABS: ANISOCYTOSIS SLIGHT
[2020-12-01 09:38] LABS: PLT ESTIMATE ADEQUATE (ADEQUATE)
[2020-12-01 10:42] VITALS: BP 117/70
[2020-12-01] MEDS: LIDOCAINE (700MG/PATCH) PATCH. TD SCH (10:55)
[2020-12-01] MEDS: FLUTICASONE 50MCG/NASAL SPRAY 16GM BOTTLE. NS SCH (10:57)
[2020-12-01] MEDS: DULoxetine HCL 30 MG CAPSULE.DR PO SCH (11:01)
--- NOTE | 2020-12-01 12:42 | PDOC2 ---
CARDIOLOGY CONSULT NOTE DATE OF SERVICE: DATE: 12/01/20 TIME: 12:18 CHIEF COMPLAINT: Chest pain HPI: 40 y.o man with pmhx of HTN and ESRD presenting with chest pain. He was shoveling snow and had chest pain for 1 hour. He reports having discussion in the past about possible angiogram PMHX: HTN ESRD SOCHX: No alcohol, tob or illicits FAMHX: NC CURRENT MEDS: Current Medications Medications (Trade) Dose Ordered Sig/Allison Route PRN Reason Start Time Stop Time Status Last Admin Dose Admin Morphine Sulfate (Morphine Sulfate) 4 mg PRN Q15MIN PRN IV/SQ PAIN GREATER THAN 3/10 11/30/20 18:15 11/30/20 19:33 DC 11/30/20 19:13 Aspirin (Ecotrin) 81 mg DAILY PO 12/01/20 09:00 12/01/20 08:31 Atorvastatin Calcium (Lipitor) 40 mg HS PO 11/30/20 21:00 11/30/20 22:58 Metoprolol Tartrate (Lopressor) 12.5 mg BID PO 11/30/20 21:00 12/01/20 08:31 Nifedipine (Procardia Xl) 30 mg DAILY PO 12/01/20 09:00 12/01/20 10:58 Pantoprazole Sodium (Protonix) 40 mg DAILYAC PO 12/01/20 07:30 12/01/20 08:31 Tamsulosin HCl (Flomax) 0.4 mg HS PO 11/30/20 21:00 11/30/20 22:58 Insulin Glargine (Lantus Syringe) 20 unit QHS SQ 11/30/20 21:00 11/30/20 23:04 Heparin Sodium (Porcine) (Heparin Sodium) 5,000 unit Q8HRS SQ 11/30/20 22:00 12/01/20 06:10 Senna/Docusate Sodium (Senna Plus) 1 tab BID PO 11/30/20 21:00 12/01/20 08:34 Fentanyl Citrate (Fentanyl 2ml Vial) 25 mcg PRN Q3HRS PRN IVP SEVERE PAIN 7-10 11/30/20 19:45 11/30/20 21:26 Fluticasone Propionate (Flonase) 2 spray DAILY NS 12/01/20 09:00 12/01/20 10:57 Duloxetine HCl (Cymbalta) 60 mg DAILY PO 12/01/20 09:00 12/01/20 11:01 Lidocaine (Lidoderm) 1 patch DAILY TD 12/01/20 12:00 12/01/20 10:55 ALLERGIES: Allergies Coded Allergies Type Severity Reaction Last Updated Verified No Known Drug Allergies 10/23/18 No ROS: Negative for 08/07 systems reviewed unless noted above in HPI PHYSICAL EXAM: Vital Signs/I&O: Vital Signs Date Time Temp Pulse Resp B/P (MAP) Pulse Ox O2 Delivery O2 Flow Rate FiO2 12/01/20 10:58 75 117/70 12/01/20 10:42 97.9 19 97 Room Air 97.9 I & O 11/30/20 11/30/20 12/01/20 15:00 23:00 07:00 Intake Total 0 ml Balance 0 ml Physical Exam: GEN.: No apparent distress. Alert and oriented. HEENT: Head is normocephalic, atraumatic NECK: Supple. LUNGS: Clear to auscultation. HEART: RRR, S1, S2 present. Peripheral pulses intact ABDOMEN: Soft, nontender. Positive bowel sounds. EXTREMITIES: Without any cyanosis. NEUROLOGIC: Normal speech, normal tone PSYCHIATRIC: Normal affect, normal mood. SKIN: No ulcerations DIAGNOSTIC TESTING: CXR wnl Echo 2020 - Normal EF Lab Laboratory Tests Test 11/30/20 18:00 12/01/20 06:54 12/01/20 08:45 12/01/20 11:22 White Blood Count 9.6 x10^3/uL (4.0-11.0) 7.3 x10^3/uL (4.0-11.0) Red Blood Count 3.59 x10^6/uL (4.30-5.70) L 3.29 x10^6/uL (4.30-5.70) L Hemoglobin 11.6 g/dL (13.0-17.5) L 10.5 g/dL (13.0-17.5) L Hematocrit 34.2 % (39.0-53.0) L 31.6 % (39.0-53.0) L Mean Corpuscular Volume 95 fL (79-100) 96 fL (79-100) Mean Corpuscular Hemoglobin 33 pg (25-35) 32 pg (25-35) Mean Corpuscular Hemoglobin Concent 34 g/dL (31-37) 33 g/dL (31-37) Red Cell Distribution Width 14.2 % (11.5-14.5) 14.4 % (11.5-14.5) Platelet Count 267 x10^3/uL (140-400) 203 x10^3/uL (140-400) Neutrophils (%) (Auto) 56 % (31-73) 50 % (31-73) Lymphocytes (%) (Auto) 26 % (24-48) 29 % (24-48) Monocytes (%) (Auto) 10 % (0-9) H 10 % (0-9) H Eosinophils (%) (Auto) 6 % (0-3) H 10 % (0-3) H Basophils (%) (Auto) 2 % (0-3) 2 % (0-3) Neutrophils # (Auto) 5.4 x10^3/uL (1.8-7.7) 3.7 x10^3/uL (1.8-7.7) Lymphocytes # (Auto) 2.5 x10^3/uL (1.0-4.8) 2.1 x10^3/uL (1.0-4.8) Monocytes # (Auto) 0.9 x10^3/uL (0.0-1.1) 0.7 x10^3/uL (0.0-1.1) Eosinophils # (Auto) 0.6 x10^3/uL (0.0-0.7) 0.7 x10^3/uL (0.0-0.7) Basophils # (Auto) 0.2 x10^3/uL (0.0-0.2) 0.1 x10^3/uL (0.0-0.2) Prothrombin Time 13.3 SEC (11.7-14.0) Prothromb Time International Ratio 1.1 (0.8-1.1) Activated Partial Thromboplast Time 24 SEC (24-38) Sodium Level 137 mmol/L (136-145) Potassium Level 5.4 mmol/L (3.5-5.1) H Chloride Level 96 mmol/L (98-107) L Carbon Dioxide Level 33 mmol/L (21-32) H Anion Gap 8 (6-14) Blood Urea Nitrogen 55 mg/dL (8-26) H Creatinine 8.0 mg/dL (0.7-1.3) H Estimated GFR (Cockcroft-Gault) 7.6 BUN/Creatinine Ratio 7 (6-20) Glucose Level 200 mg/dL (70-99) H Calcium Level 10.0 mg/dL (8.5-10.1) Total Bilirubin 0.4 mg/dL (0.2-1.0) Aspartate Amino Transf (AST/SGOT) 17 U/L (15-37) Alkaline Phosphatase 101 U/L (46-116) Total Protein 7.6 g/dL (6.4-8.2) Albumin 3.6 g/dL (3.4-5.0) Albumin/Globulin Ratio 0.9 (1.0-1.7) L Thyroid Stimulating Hormone (TSH) 1.242 uIU/mL (0.358-3.74) Glucose (Fingerstick) 208 mg/dL (70-99) H 136 mg/dL (70-99) H Platelet Estimate Adequate (ADEQUATE) Anisocytosis Slight Laboratory Tests 11/30/20 18:00 12/01/20 08:45 ASSESSMENT: 1. Chest pain 2. HTN 3. ESRD PLAN: 1. Patient presenting with unstable angina with multiple risk factors. Will rule out coronary disease. Discussed r/b/a for cath, he wishes to proceed. Will schedule for tomorrow. ISABELLA STEELE MD Dec 01, 2020 12:41
--- NOTE | 2020-12-01 14:23 | CONS ---
DATE OF CONSULTATION: REQUESTING PHYSICIAN: Hospitalist. REASON FOR CONSULTATION: Renal failure. HISTORY OF PRESENT ILLNESS: This is a 40-year-old gentleman with history of diabetes mellitus, hypertension, and end-stage renal disease. He is hemodialysis dependent on Wednesday, Wednesday, and Wednesday schedule. The patient presents to the hospital now with chest pain. He is in need of cardiac catheterization tomorrow. PAST MEDICAL HISTORY: Diabetes mellitus, hypertension, hyperlipidemia, end-stage renal disease, hemodialysis dependent, anemia of chronic kidney disease, secondary hyperparathyroidism, renal disease, peripheral vascular disease, left [id number]-plo-sceu amputation, depression. ALLERGIES: None are noted. MEDICATIONS: Reviewed per medication list. FAMILY HISTORY: Noncontributory. SOCIAL HISTORY: The patient resides independently. REVIEW OF SYSTEMS: No headache, sinus problem, nasal drainage, epistaxis, change in vision or hearing. No difficulty swallowing. No fever, chills, cough, sputum production, or hemoptysis. He has had chest pain. No nausea, vomiting, diarrhea. No seizures or malignancies. PHYSICAL EXAMINATION: GENERAL APPEARANCE: The patient is awake, conversant with flat affect. HEENT: Clear. NECK: No increased JVD. No thyromegaly, mass or adenopathy. LUNGS: Clear. CARDIAC: Without S3 or rub. ABDOMEN: Obese, bowel sounds present, nontender. EXTREMITIES: Without edema. NEUROLOGIC: Nonfocal, nonlocalized. PSYCHIATRIC: Good attention to detail, flat affect. LABORATORY DATA: White count 7.3, hemoglobin 10.5, hematocrit 31.6, glucose 136. Sodium 137, potassium 5.4, chloride 96, CO2 of 33, BUN 55, creatinine 8, GFR 7.6. IMPRESSION: 1. End-stage renal disease secondary to diabetic nephropathy. 2. Chest pain for cardiac catheterization. RECOMMENDATIONS: 1. Ongoing dialysis on Wednesday, Wednesday and Wednesday. We will follow cardiac catheterization tomorrow. 2. Cardiac catheterization per Cardiology tomorrow. SAULO KEITH MD DR: CL[place]/shirin JOB#: [id number] / [id number]
[2020-12-01 14:42] VITALS: BP 107/62
[2020-12-01 19:45] VITALS: BP 109/57
[2020-12-01] MEDS: ATORVASTATIN CALCIUM 40 MG TABLET. PO SCH (20:24)
[2020-12-01] MEDS: TAMSULOSIN 0.4 MG CAP.ER.24H. PO SCH (20:24)
[2020-12-01] MEDS: PSYLLIUM HUSK (SUGAR FREE) 1 PKT PACKET PO SCH (20:25)
[2020-12-01 20:28] LABS: ALBUMIN 3.2 g/dL (3.4-5.0); ALBUMIN/GLOBULIN RATIO 0.9 (1.0-1.7); CALCIUM 9.2 mg/dL (8.5-10.1); CREATININE 10.8 mg/dL (0.7-1.3); GFR 5.4; POTASSIUM 5.4 mmol/L (3.5-5.1); TOTAL BILIRUBIN 0.4 mg/dL (0.2-1.0); TOTAL PROTEIN 6.8 g/dL (6.4-8.2)
[2020-12-01] MEDS: INSULIN GLARGINE SYRINGE. SQ SCH (20:31)
[2020-12-01] MEDS: PATCH REMOVAL. MC SCH (20:54)
[2020-12-01 22:40] VITALS: BP 114/63
[2020-12-02] VITALS (11 sets, daily range): BP systolic 83–134; BP diastolic 51–86
[2020-12-02 03:07] LABS: HEMOGLOBIN A1C 6.8 % (4.8-5.6)
[2020-12-02] MEDS: HEPARIN for SUB-Q USE 5,000 UNIT/ML VIAL. SQ SCH ×3 (05:59→21:19)
[2020-12-02] MEDS: SEVELAMER CARBONATE 800 MG TABLET. PO SCH ×3 (08:00→17:00)
[2020-12-02] MEDS: INSULIN LISPRO 300 UNITS/3 ML VIAL. SQ SCH ×6 (08:00→17:00)
[2020-12-02] MEDS: FERROUS SULFATE 325 MG TABLET. PO SCH (08:00)
[2020-12-02] MEDS: LIDOCAINE (700MG/PATCH) PATCH. TD SCH (08:31)
[2020-12-02] MEDS: ASPIRIN ENTERIC COATED 81 MG TABLET.DR. PO SCH (08:32)
[2020-12-02] MEDS: FLUTICASONE 50MCG/NASAL SPRAY 16GM BOTTLE. NS SCH (08:32)
[2020-12-02] MEDS: PANTOPRAZOLE 40 MG TABLET.DR. PO SCH (08:32)
[2020-12-02] MEDS: METOPROLOL TART IMMED RELEASE 25 MG TABLET. PO SCH ×2 (08:33→21:18)
[2020-12-02] MEDS: SENNOSIDES/DOCUSATE 8.6/50MG TABLET. PO SCH ×2 (09:00→21:18)
[2020-12-02] MEDS: DULoxetine HCL 30 MG CAPSULE.DR PO SCH (09:00)
[2020-12-02] MEDS ORDERED: DIALYSIS PATIENT. MC PRN ×4 (09:00→11:45)
[2020-12-02] MEDS: NON FORMULARY ITEM (Patiromer Calcium Sorbitex (Veltassa) 8.4 GM) PO SCH (09:00)
[2020-12-02] MEDS ORDERED: IV NORMAL SALINE 1000ML BAG 1,000 ML IV PRN ×4 (09:00→11:45)
[2020-12-02 09:13] LABS: BASO # 0.1 x10^3/uL (0.0-0.2); BASO % 2 % (0-3); EOS # 0.7 x10^3/uL (0.0-0.7); EOS % 11 % (0-3); HEMATOCRIT 32.1 % (39.0-53.0); HEMOGLOBIN 10.6 g/dL (13.0-17.5); LYMPH # 1.9 x10^3/uL (1.0-4.8); LYMPH % 31 % (24-48); MEAN CORPUSCULAR HEMOGLOBIN 32 pg (25-35); MEAN CORPUSCULAR HGB CONC 33 g/dL (31-37); MEAN CORPUSCULAR VOLUME 96 fL (79-100); MONO # 0.5 x10^3/uL (0.0-1.1); MONO % 8 % (0-9); NEUT % 49 % (31-73); PLATELET COUNT 238 x10^3/uL (140-400); RED BLOOD COUNT 3.34 x10^6/uL (4.30-5.70); RED CELL DISTRIBUTION WIDTH 14.2 % (11.5-14.5); WHITE BLOOD COUNT 6.1 x10^3/uL (4.0-11.0)
[2020-12-02 09:20] LABS: CALCIUM 9.2 mg/dL (8.5-10.1); CREATININE 11.8 mg/dL (0.7-1.3); GFR 4.8
--- NOTE | 2020-12-02 11:10 | PDOC ---
[employer] PROGRESS NOTE Date of Service DOS: DATE: 12/02/20 TIME: 11:02 Chief Complaint Chief Complaint Chest pain Diabetes mellitus hypertension hyperlipidemia, end-stage renal disease hemodialysis dependent anemia of chronic kidney disease secondary hyperparathyroidism renal disease peripheral vascular disease left wrxar-fum-zygq amputation depression. History of Present Illness History of Present Illness 12/02/20 Patient seen and examined. DWRN Chart reviewed Vitals/I&O Vitals/I&O: Vital Signs Date Time Temp Pulse Resp B/P (MAP) Pulse Ox O2 Delivery O2 Flow Rate FiO2 12/02/20 10:24 97.4 73 18 134/86 (102) 97 Room Air 97.4 I & O 12/01/20 12/01/20 12/02/20 15:00 23:00 07:00 Intake Total 500 ml 200 ml Balance 500 ml 200 ml Physical Exam General: Alert, Oriented X3, Cooperative, mild distress Lungs: Clear, Other Abdomen: Normal bowel sounds, Soft, No tenderness, No hepatosplenomegaly, No masses Extremities: No clubbing, No cyanosis, No tenderness/swelling, Other (LLE BKA) Skin: No rashes, No breakdown, No significant lesion Labs Labs: Laboratory Tests Test 12/01/20 11:22 12/01/20 16:11 12/01/20 19:38 12/01/20 20:39 Glucose (Fingerstick) 136 mg/dL (70-99) 182 mg/dL (70-99) 171 mg/dL (70-99) Sodium Level 138 mmol/L (136-145) Potassium Level 5.4 mmol/L (3.5-5.1) Chloride Level 99 mmol/L (98-107) Carbon Dioxide Level 29 mmol/L (21-32) Anion Gap 10 (6-14) Blood Urea Nitrogen 76 mg/dL (8-26) Creatinine 10.8 mg/dL (0.7-1.3) Estimated GFR (Cockcroft-Gault) 5.4 BUN/Creatinine Ratio 7 (6-20) Glucose Level 155 mg/dL (70-99) Calcium Level 9.2 mg/dL (8.5-10.1) Total Bilirubin 0.4 mg/dL (0.2-1.0) Aspartate Amino Transf (AST/SGOT) 16 U/L (15-37) Alanine Aminotransferase (ALT/SGPT) 12 U/L (16-63) Alkaline Phosphatase 90 U/L (46-116) Total Protein 6.8 g/dL (6.4-8.2) Albumin 3.2 g/dL (3.4-5.0) Albumin/Globulin Ratio 0.9 (1.0-1.7) Test 12/02/20 07:21 12/02/20 08:30 12/02/20 08:40 12/02/20 10:06 Glucose (Fingerstick) 66 mg/dL (70-99) 100 mg/dL (70-99) SARS-CoV-2 Antigen (Rapid) Negative (NEGATIVE) White Blood Count 6.1 x10^3/uL (4.0-11.0) Red Blood Count 3.34 x10^6/uL (4.30-5.70) Hemoglobin 10.6 g/dL (13.0-17.5) Hematocrit 32.1 % (39.0-53.0) Mean Corpuscular Volume 96 fL (79-100) Mean Corpuscular Hemoglobin 32 pg (25-35) Mean Corpuscular Hemoglobin Concent 33 g/dL (31-37) Red Cell Distribution Width 14.2 % (11.5-14.5) Platelet Count 238 x10^3/uL (140-400) Neutrophils (%) (Auto) 49 % (31-73) Lymphocytes (%) (Auto) 31 % (24-48) Monocytes (%) (Auto) 8 % (0-9) Eosinophils (%) (Auto) 11 % (0-3) Basophils (%) (Auto) 2 % (0-3) Neutrophils # (Auto) 3.0 x10^3/uL (1.8-7.7) Lymphocytes # (Auto) 1.9 x10^3/uL (1.0-4.8) Monocytes # (Auto) 0.5 x10^3/uL (0.0-1.1) Eosinophils # (Auto) 0.7 x10^3/uL (0.0-0.7) Basophils # (Auto) 0.1 x10^3/uL (0.0-0.2) Sodium Level 135 mmol/L (136-145) Potassium Level 6.0 mmol/L (3.5-5.1) Chloride Level 96 mmol/L (98-107) Carbon Dioxide Level 28 mmol/L (21-32) Anion Gap 11 (6-14) Blood Urea Nitrogen 82 mg/dL (8-26) Creatinine 11.8 mg/dL (0.7-1.3) Estimated GFR (Cockcroft-Gault) 4.8 Glucose Level 191 mg/dL (70-99) Calcium Level 9.2 mg/dL (8.5-10.1) Review of Systems Review of Systems: Complains of weakness and chest pain Assessment and Plan Assessmemt and Plan Problems Medical Problems: (1) Chest pain Status: Acute Chest pain Diabetes mellitus hypertension hyperlipidemia, end-stage renal disease hemodialysis dependent anemia of chronic kidney disease secondary hyperparathyroidism renal disease peripheral vascular disease left vgcmh-ryi-mceq amputation depression Plan Cardiac monitoring Serial enzymes and EKG Await cardiac cath today home meds DVT prophylaxis Full code Comment Review of Relevant I have reviewed the following items ching (where applicable) has been applied. Medications: Current Medications Medications (Trade) Dose Ordered Sig/Allison Route PRN Reason Start Time Stop Time Status Last Admin Dose Admin Psyllium Hydrophilic Mucilloid (Metamucil Fiber Packet) 1 pkt QHS PO 12/01/20 21:00 12/01/20 20:25 Lidocaine (Lidoderm) 1 patch DAILY TD 12/01/20 12:00 12/02/20 08:31 Miscellaneous (Lidoderm Patch Removal) 1 ea QHS MC 12/01/20 21:00 12/01/20 20:54 Justifications for Admission Chest Pain Indications Serious Diagnosis?: Yes Justification for admission: Chest pain may be indicative of potentially serious diagnosis/diagnoses Please state condition(s) which will require inpatient level of care for further evaluation and management. Other Justification PRATIBHA BRITO III DO Dec 02, 2020 11:10
--- NOTE | 2020-12-02 12:00 | EKG ---
[facility] [address] [place] [address] Test Date: 2020-11-30 Test Time: 17:53:30 Pat Name: MARY RUIZ Department: Room: 208 1 Gender: M Journeyman Press Operator: : 1980 Requested By: ANAM DOUGHERTY Order Number: [id number] Reading MD: Moy Bryan Measurements Intervals [place] Rate: 85 P: 0 TX: 144 QRS: -10 QRSD: 98 T: 40 QT: 354 QTc: 421 Interpretive Statements SINUS RHYTHM LEFTWARD AXIS Electronically Signed On 12-03-2020 9:48:18 PRESSURE DISPATCHER by Moy Bryan
--- NOTE | 2020-12-02 12:13 | NUR ---
SS following for discharge planning. SS reviewed pt chart and discussed with pt RN. Pt is from home and is currently on room air. COVID19 negative. Pt has outpatient dialysis at [facility] at [address] [facility] [place] [address]; phone [phone]. Pt having heart cath today. Discharge plan is to home when medically ready. SS will continue to follow for discharge planning.
--- NOTE | 2020-12-02 13:08 | PDOC ---
DATE OF SERVICE DATE: 12/02/20 TIME: 13:02 SUBJECTIVE ROS Walking in the hallway, stays just got tited in his room. Denies any CP or SOB Scheduled for Cardiac cath later today OBJECTIVE Vital Signs Vital Signs Date Time Temp Pulse Resp B/P (MAP) Pulse Ox O2 Delivery O2 Flow Rate FiO2 12/02/20 10:24 97.4 73 18 134/86 (102) 97 Room Air 97.4 I & 0 Intake and Output 12/02/20 07:00 Intake Total 700 ml Balance 700 ml Intake Oral 700 ml # Voids 2 PHYSICAL EXAM Physical Exam GEN.: No apparent distress. HEENT: Head is normocephalic, atraumatic NECK: Supple. LUNGS: Clear to auscultation. HEART: RRR, S1, S2 present. Peripheral pulses intact ABDOMEN: Soft, nontender. Positive bowel sounds. EXTREMITIES: Without any cyanosis. NEUROLOGIC: Normal speech, normal tone PSYCHIATRIC: Normal affect, normal mood. SKIN: No rash DIAGNOSIS/ASSESSMENT Assessment & Plan ESRD- On HD TTS at [facility] today for Hyperkalemia , discussed treatment plan with Betsy HyperKalemia- Chronic , On [place] at Home , Dialysis today Chest pain- scheduled for cardiac cath today Diabetes mellitus hypertension- stable anemia of chronic kidney disease secondary hyperparathyroidism peripheral vascular disease-left jmnmq-ygc-nxrq amputation COMMENT/RELEVANT DATA Meds Current Medications Medications (Trade) Dose Ordered Sig/Allison Start Time Stop Time Status Last Admin Dose Admin Acetaminophen (Tylenol) 650 mg PRN Q6HRS PRN 11/30/20 19:45 Aspirin (Ecotrin) 81 mg DAILY 12/01/20 09:00 12/02/20 08:32 81 MG Atorvastatin Calcium (Lipitor) 40 mg HS 11/30/20 21:00 12/01/20 20:24 40 MG Dextrose (Dextrose 50%-Water Syringe) 12.5 gm PRN Q15MIN PRN 11/30/20 19:30 12/02/20 08:32 12.5 GM Duloxetine HCl (Cymbalta) 60 mg DAILY 12/01/20 09:00 12/01/20 11:01 60 MG Fentanyl Citrate (Fentanyl 2ml Vial) 25 mcg PRN Q3HRS PRN 11/30/20 19:45 11/30/20 21:26 25 MCG Ferrous Sulfate (Feosol) 325 mg DAILYWBKFT 2/8/21 08:00 Fluticasone Propionate (Flonase) 2 spray DAILY 12/01/20 09:00 12/02/20 08:32 2 SPRAY Heparin Sodium (Porcine) (Heparin Sodium) 5,000 unit Q8HRS 11/30/20 22:00 12/02/20 05:59 5,000 UNIT Info (PHARMACY MONITORING -- do not chart) 1 each PRN DAILY PRN 12/02/20 11:45 UNV Insulin Glargine (Lantus Syringe) 20 unit QHS 11/30/20 21:00 12/01/20 20:31 20 UNIT Insulin Human Lispro (HumaLOG) 0-7 UNITS TIDWMEALS 12/01/20 08:00 Lidocaine (Lidoderm) 1 patch DAILY 12/01/20 12:00 12/02/20 08:31 1 PATCH Metoprolol Tartrate (Lopressor) 12.5 mg BID 11/30/20 21:00 12/02/20 08:33 12.5 MG Miscellaneous (Lidoderm Patch Removal) 1 ea QHS 12/01/20 21:00 12/01/20 20:54 1 EA Morphine Sulfate (Morphine Sulfate) 4 mg PRN Q2HR PRN 11/30/20 21:00 12/01/20 08:04 DC Nifedipine (Procardia Xl) 30 mg DAILY 12/01/20 09:00 12/02/20 08:33 30 MG Nitroglycerin (Nitro-Bid Oint) 1 inch 1X ONCE 11/30/20 19:45 11/30/20 19:46 DC Nitroglycerin (Nitrostat) 0.4 mg PRN Q5MIN PRN 11/30/20 21:00 12/01/20 20:59 DC Non-Formulary Medication (Patiromer Calcium Sorbitex (Veltassa)) 8.4 gm DAILY 12/01/20 09:00 UNV Olanzapine (ZyPREXA ZYDIS) 5 mg PRN BID PRN 11/30/20 19:45 Ondansetron HCl (Zofran) 4 mg PRN Q6HRS PRN 11/30/20 19:45 Pantoprazole Sodium (Protonix) 40 mg DAILYAC 12/01/20 07:30 12/02/20 08:32 40 MG Psyllium Hydrophilic Mucilloid (Metamucil Fiber Packet) 1 pkt QHS 12/01/20 21:00 12/01/20 20:25 1 PKT Senna/Docusate Sodium (Senna Plus) 1 tab BID 11/30/20 21:00 12/01/20 20:24 1 TAB Sevelamer Carbonate (Renvela) 2,400 mg TIDWMEALS 12/01/20 08:00 12/01/20 17:22 2,400 MG Sodium Chloride 1,000 ml @ 400 mls/hr Q2H30M PRN 12/02/20 11:45 12/02/20 23:44 Cancel Tamsulosin HCl (Flomax) 0.4 mg HS 11/30/20 21:00 12/01/20 20:24 0.4 MG Lab Laboratory Tests Test 12/01/20 16:11 12/01/20 19:38 12/01/20 20:39 12/02/20 07:21 Glucose (Fingerstick) 182 mg/dL (70-99) 171 mg/dL (70-99) 66 mg/dL (70-99) Sodium Level 138 mmol/L (136-145) Potassium Level 5.4 mmol/L (3.5-5.1) Chloride Level 99 mmol/L (98-107) Carbon Dioxide Level 29 mmol/L (21-32) Anion Gap 10 (6-14) Blood Urea Nitrogen 76 mg/dL (8-26) Creatinine 10.8 mg/dL (0.7-1.3) Estimated GFR (Cockcroft-Gault) 5.4 BUN/Creatinine Ratio 7 (6-20) Glucose Level 155 mg/dL (70-99) Calcium Level 9.2 mg/dL (8.5-10.1) Total Bilirubin 0.4 mg/dL (0.2-1.0) Aspartate Amino Transf (AST/SGOT) 16 U/L (15-37) Alanine Aminotransferase (ALT/SGPT) 12 U/L (16-63) Alkaline Phosphatase 90 U/L (46-116) Total Protein 6.8 g/dL (6.4-8.2) Albumin 3.2 g/dL (3.4-5.0) Albumin/Globulin Ratio 0.9 (1.0-1.7) Test 12/02/20 08:30 12/02/20 08:40 12/02/20 10:06 12/02/20 11:14 SARS-CoV-2 Antigen (Rapid) Negative (NEGATIVE) White Blood Count 6.1 x10^3/uL (4.0-11.0) Red Blood Count 3.34 x10^6/uL (4.30-5.70) Hemoglobin 10.6 g/dL (13.0-17.5) Hematocrit 32.1 % (39.0-53.0) Mean Corpuscular Volume 96 fL (79-100) Mean Corpuscular Hemoglobin 32 pg (25-35) Mean Corpuscular Hemoglobin Concent 33 g/dL (31-37) Red Cell Distribution Width 14.2 % (11.5-14.5) Platelet Count 238 x10^3/uL (140-400) Neutrophils (%) (Auto) 49 % (31-73) Lymphocytes (%) (Auto) 31 % (24-48) Monocytes (%) (Auto) 8 % (0-9) Eosinophils (%) (Auto) 11 % (0-3) Basophils (%) (Auto) 2 % (0-3) Neutrophils # (Auto) 3.0 x10^3/uL (1.8-7.7) Lymphocytes # (Auto) 1.9 x10^3/uL (1.0-4.8) Monocytes # (Auto) 0.5 x10^3/uL (0.0-1.1) Eosinophils # (Auto) 0.7 x10^3/uL (0.0-0.7) Basophils # (Auto) 0.1 x10^3/uL (0.0-0.2) Sodium Level 135 mmol/L (136-145) Potassium Level 6.0 mmol/L (3.5-5.1) Chloride Level 96 mmol/L (98-107) Carbon Dioxide Level 28 mmol/L (21-32) Anion Gap 11 (6-14) Blood Urea Nitrogen 82 mg/dL (8-26) Creatinine 11.8 mg/dL (0.7-1.3) Estimated GFR (Cockcroft-Gault) 4.8 Glucose Level 191 mg/dL (70-99) Calcium Level 9.2 mg/dL (8.5-10.1) Glucose (Fingerstick) 100 mg/dL (70-99) 91 mg/dL (70-99) Results All relevant outside records, renal labs, imaging studies, telemetry/EKG's were reviewed. Justicifation of Admission Dx: Justifications for Admission: Justification of Admission Dx: N/A DIDI SILVA MD Dec 02, 2020 13:08
[2020-12-02] MEDS ORDERED: LIDOCAINE 1% Multi-Dose 20 ML VIAL. ONE (13:09)
[2020-12-02] MEDS ORDERED: IODIXANOL 320 MG/ML 100 ML VIAL. ONE (13:09)
[2020-12-02] MEDS ORDERED: MIDAZOLAM HCL/PF 2 MG/2 ML VIAL. ONE (13:13)
[2020-12-02] MEDS ORDERED: fentaNYL PF VIAL 100 MCG/2 ML VIAL ONE (13:13)
[2020-12-02] MEDS ORDERED: fentaNYL PF VIAL 100 MCG/2 ML VIAL IV ONE (13:30)
[2020-12-02] MEDS ORDERED: MIDAZOLAM HCL/PF 2 MG/2 ML VIAL. IV ONE (13:30)
[2020-12-02] MEDS ORDERED: IODIXANOL 320 MG/ML 100 ML VIAL. IART ONE (13:30)
[2020-12-02] MEDS ORDERED: LIDOCAINE 1% Multi-Dose 20 ML VIAL. INJ ONE (13:30)
[2020-12-02] MEDS ORDERED: CONTRAST GIVEN. MC PRN (14:00)
--- NOTE | 2020-12-02 15:00 | NUR ---
Pt in dialysis post cardiac cath. This nurse to dialysis for groin checks and vitals signs. Dialysis nurse checking vitals Q15. See dialysis notes for vitals. Pt stable during each groin check.
[2020-12-02] MEDS: PATCH REMOVAL. MC SCH (21:00)
[2020-12-02] MEDS: ATORVASTATIN CALCIUM 40 MG TABLET. PO SCH (21:18)
[2020-12-02] MEDS: PSYLLIUM HUSK (SUGAR FREE) 1 PKT PACKET PO SCH (21:18)
[2020-12-02] MEDS: TAMSULOSIN 0.4 MG CAP.ER.24H. PO SCH (21:18)
[2020-12-02] MEDS: INSULIN GLARGINE SYRINGE. SQ SCH (21:20)
[2020-12-03 03:15] VITALS: BP 99/59
[2020-12-03] MEDS: PANTOPRAZOLE 40 MG TABLET.DR. PO SCH (05:48)
[2020-12-03] MEDS: HEPARIN for SUB-Q USE 5,000 UNIT/ML VIAL. SQ SCH ×2 (05:49→14:00)
[2020-12-03 07:50] VITALS: BP 126/73
[2020-12-03] MEDS: SENNOSIDES/DOCUSATE 8.6/50MG TABLET. PO SCH (08:52)
[2020-12-03] MEDS: DULoxetine HCL 30 MG CAPSULE.DR PO SCH (08:52)
[2020-12-03] MEDS: ASPIRIN ENTERIC COATED 81 MG TABLET.DR. PO SCH (08:52)
[2020-12-03] MEDS: SEVELAMER CARBONATE 800 MG TABLET. PO SCH ×2 (08:53→12:28)
[2020-12-03] MEDS: METOPROLOL TART IMMED RELEASE 25 MG TABLET. PO SCH (08:53)
[2020-12-03] MEDS: FERROUS SULFATE 325 MG TABLET. PO SCH (08:53)
[2020-12-03] MEDS: FLUTICASONE 50MCG/NASAL SPRAY 16GM BOTTLE. NS SCH (08:55)
[2020-12-03] MEDS: INSULIN LISPRO 300 UNITS/3 ML VIAL. SQ SCH ×4 (08:58→12:29)
[2020-12-03] MEDS: NON FORMULARY ITEM (Patiromer Calcium Sorbitex (Veltassa) 8.4 GM) PO SCH (08:59)
[2020-12-03] MEDS: LIDOCAINE (700MG/PATCH) PATCH. TD SCH (09:00)
--- NOTE | 2020-12-03 10:17 | NUR ---
SS following up with discharge planning. SS reviewed pt chart and discussed with pt RN. Pt is currently on room air. COVID19 negative. Pt has outpatient dialysis at [facility] at [address] [facility] [address]; phone [phone]. Pt had heart cath on 12/02/2020. Probable discharge to home today. SS will continue to follow for discharge planning.
--- NOTE | 2020-12-03 10:30 | PDOC ---
DATE OF SERVICE DATE: 12/03/20 TIME: 10:30 SUBJECTIVE ROS s/p cardiac cath, denies any cp OBJECTIVE Vital Signs Vital Signs Date Time Temp Pulse Resp B/P (MAP) Pulse Ox O2 Delivery O2 Flow Rate FiO2 12/03/20 08:53 76 126/73 12/03/20 07:50 98.2 18 98 Room Air 98.2 12/02/20 19:13 2.0 I & 0 Intake and Output 12/03/20 07:00 Intake Total 300 ml Balance 300 ml Intake Oral 300 ml PHYSICAL EXAM Physical Exam GEN.: No apparent distress. HEENT: Head is normocephalic, atraumatic NECK: Supple. LUNGS: Clear to auscultation. HEART: RRR, S1, S2 present. Peripheral pulses intact ABDOMEN: Soft, nontender. Positive bowel sounds. EXTREMITIES: Without any cyanosis. NEUROLOGIC: Normal speech, normal tone PSYCHIATRIC: Normal affect, normal mood. SKIN: No rash DIAGNOSIS/ASSESSMENT Assessment & Plan ESRD- On HD switched to MWF recently at (pt informed me today) . Dialyzed yesterday, currently no emergent indication. Will go back to OP tomorrow if dced today Undergoing Tx Eval at . Please send records to Tx team(susy cardiac cath report) HyperKalemia- Chronic , mild On [place] at Home Chest pain- ss/p cardiac cath on 12/02/2020 . Mild acute on chronic diastolic HF,2 Normal LV systolic function. EF 55% One vessel coronary disease. Aggressive medical management per cardiology Diabetes mellitus hypertension- stable anemia of chronic kidney disease secondary hyperparathyroidism peripheral vascular disease-left qsgca-weu-cock amputation COMMENT/RELEVANT DATA Meds Current Medications Medications (Trade) Dose Ordered Sig/Allison Start Time Stop Time Status Last Admin Dose Admin Acetaminophen (Tylenol) 650 mg PRN Q6HRS PRN 11/30/20 19:45 Aspirin (Ecotrin) 81 mg DAILY 12/01/20 09:00 12/03/20 08:52 81 MG Atorvastatin Calcium (Lipitor) 40 mg HS 11/30/20 21:00 12/02/20 21:18 40 MG Dextrose (Dextrose 50%-Water Syringe) 12.5 gm PRN Q15MIN PRN 11/30/20 19:30 12/02/20 08:32 12.5 GM Duloxetine HCl (Cymbalta) 60 mg DAILY 12/01/20 09:00 12/03/20 08:52 60 MG Fentanyl Citrate (Fentanyl 2ml Vial) 100 mcg 1X ONCE 12/02/20 13:30 12/02/20 13:56 DC 12/02/20 13:42 50 MCG Ferrous Sulfate (Feosol) 325 mg DAILYWBKFT 12/02/20 08:00 12/03/20 08:53 325 MG Fluticasone Propionate (Flonase) 2 spray DAILY 12/01/20 09:00 12/03/20 08:55 2 SPRAY Heparin Sodium (Porcine) (Heparin Sodium) 5,000 unit Q8HRS 11/30/20 22:00 12/03/20 05:49 5,000 UNIT Heparin Sodium/ Sodium Chloride (HEPARIN for ARTERIAL LINE FLUSH) 1,000 unit 1X ONCE 12/02/20 13:30 12/02/20 13:56 DC 12/02/20 13:30 1,000 UNIT Info (CONTRAST GIVEN -- Rx MONITORING) 1 each PRN DAILY PRN 12/02/20 14:00 12/04/20 13:59 Info (PHARMACY MONITORING -- do not chart) 1 each PRN DAILY PRN 12/02/20 11:45 UNV Insulin Glargine (Lantus Syringe) 20 unit QHS 11/30/20 21:00 12/02/20 21:20 20 UNIT Insulin Human Lispro (HumaLOG) 0-7 UNITS TIDWMEALS 12/01/20 08:00 12/03/20 08:59 4 UNITS Iodixanol (Visipaque 320) 100 ml 1X ONCE 12/02/20 13:30 12/02/20 13:56 DC 12/02/20 14:05 70 ML Lidocaine (Lidoderm) 1 patch DAILY 12/01/20 12:00 12/02/20 08:31 1 PATCH Lidocaine HCl (Lidocaine 1% 20ml Vial) 20 ml 1X ONCE 12/02/20 13:30 12/02/20 13:56 DC 12/02/20 13:44 10 ML Metoprolol Tartrate (Lopressor) 12.5 mg BID 11/30/20 21:00 12/03/20 08:53 12.5 MG Midazolam HCl (Versed) 2 mg 1X ONCE 12/02/20 13:30 12/02/20 13:56 DC 12/02/20 13:42 2 MG Miscellaneous (Lidoderm Patch Removal) 1 ea QHS 12/01/20 21:00 12/02/20 21:00 1 EA Morphine Sulfate (Morphine Sulfate) 4 mg PRN Q2HR PRN 11/30/20 21:00 12/01/20 08:04 DC Nifedipine (Procardia Xl) 30 mg DAILY 12/01/20 09:00 12/03/20 08:53 30 MG Nitroglycerin (Nitro-Bid Oint) 1 inch 1X ONCE 11/30/20 19:45 11/30/20 19:46 DC Nitroglycerin (Nitrostat) 0.4 mg PRN Q5MIN PRN 11/30/20 21:00 12/01/20 20:59 DC Non-Formulary Medication (Patiromer Calcium Sorbitex (Veltassa)) 8.4 gm DAILY 12/01/20 09:00 UNV Olanzapine (ZyPREXA ZYDIS) 5 mg PRN BID PRN 11/30/20 19:45 Ondansetron HCl (Zofran) 4 mg PRN Q6HRS PRN 11/30/20 19:45 Pantoprazole Sodium (Protonix) 40 mg DAILYAC 12/01/20 07:30 12/03/20 05:48 40 MG Psyllium Hydrophilic Mucilloid (Metamucil Fiber Packet) 1 pkt QHS 12/01/20 21:00 12/02/20 21:18 1 PKT Senna/Docusate Sodium (Senna Plus) 1 tab BID 11/30/20 21:00 12/03/20 08:52 1 TAB Sevelamer Carbonate (Renvela) 2,400 mg TIDWMEALS 12/01/20 08:00 12/03/20 08:53 2,400 MG Sodium Chloride 1,000 ml @ 400 mls/hr Q2H30M PRN 12/02/20 11:45 12/02/20 23:44 Cancel Tamsulosin HCl (Flomax) 0.4 mg HS 11/30/20 21:00 12/02/20 21:18 0.4 MG Lab Laboratory Tests Test 12/02/20 11:14 12/02/20 19:06 12/02/20 21:16 2/9/21 07:54 Glucose (Fingerstick) 91 mg/dL (70-99) 126 mg/dL (70-99) 185 mg/dL (70-99) 215 mg/dL (70-99) Results All relevant outside records, renal labs, imaging studies, telemetry/EKG's were reviewed. Justicifation of Admission Dx: Justifications for Admission: Justification of Admission Dx: N/A DIDI SILVA MD Dec 03, 2020 10:30
[2020-12-03 10:34] LABS: CALCIUM 9.8 mg/dL (8.5-10.1); CREATININE 9.9 mg/dL (0.7-1.3); GFR 5.9; POTASSIUM 5.5 mmol/L (3.5-5.1)
--- NOTE | 2020-12-03 10:42 | CARD ---
MR#: [id number] Date of Study: 12/02/2020 Ordering Physician: ISABELLA STEELE, Referring Physician: ISABELLA STEELE, Tech: MARA CRUZ RTR APPROVED REPORT Technologist: MARA CRUZ RTR Nurse: Vilma Regan RN Procedure(s) performed: MODERATE SEDATION TIME: 30 MINUTES FLUORO TIME: 6.9 MIN DOSE: 99.02 GYCM2 CONTRAST: 70CC VISI LHC, Coronary angiography HISTORY The patient is a 40 year-old male with a history of : renal failure with dialysis, hypertension, dysl ipidemia. INDICATION The indication(s) include : unstable angina . CS Clinical Frailty Scale [facility] Clinical Frailty Scale: Moderately Frail Heart Failure Heart Failure: Yes If Yes, Newly Diagnosed: No If Yes, HF Type: Diastolic If Yes, NYHA Class: Class II PROCEDURE NARRATIVE After explaining the risks and benefits of the procedure and alternatives, informed consent was obtai jt. The patient was brought electively to the cardiac catheterization lab in a fasting state. A shruthi eout was performed confirming the patient's name, date of , procedure, and site of procedure. A ll necessary personnel were wearing the appropriate protective equipment and radiation monitor device s. (See nursing notes for medications administered). The right groin was sterilely prepped and drap ed in the usual fashion. The right groin was infiltrated with 10 mL of 2% lidocaine for subcutaneous anesthesia. A 6 F sheath was inserted into the right femoral artery without difficulty. Right and left coronary angiography was performed using a JR4 and JL4 catheter. Left ventricular end diastolic pressure was obtained with a pigtail catheter and pullback was performed after left ventriculography . All catheter exchanges and advancements were performed over a guidewire. At case completion the r ight femoral sheath was removed and hemostasis was achieved with an Angioseal Device after limited fe moral angiography confirmed adequate vessel size and anatomy. There were no acute complications. HEMODYNAMICS: AO: 120/70 LVEDP 18 mm Hg No gradient on LV to aortic pullback. LEFT VENTRICULOGRAM: EF 55% Anterobasal: Normal. Anterolateral: Normal Apical: Normal Diaphragmatic: Normal Posterobasal: Normal *No significant mitral regurgitation or aortic insufficiency. CORONARY ANGIOGRAPHY: LM is a large caliber vessel with normal angiographic appearance. LAD is a large caliber vessel with a proximal 30% stenosis Ramus is a small caliber vessel with a proximal 100% occlusion, the distal vessel is seen to fill via left to left collaterals. LCx is a large caliber dominant vessel with normal angiographic appearance. OM1 is a moderate caliber vessel with normal angiographic appearance. LPL is a small to moderate caliber vessel with mild luminal irregularities. LPDA is a small caliber vessel with mild luminal irregularities. RCA is a small caliber non-dominant vessel with an anterior take-off and mild irregularities of less than 30% Conclusion 1. Mild acute on chronic diastolic HF, LVEDP 18 mm Hg 2. Normal LV systolic function. EF 55% 3. One vessel coronary disease. Recommendations Aggressive Medical Therapy Signed by : Isabella Steele, Electronically Approved : 12/03/2020 10:42:04
--- NOTE | 2020-12-03 10:46 | PDOC ---
[employer] PROGRESS NOTE Date of Service DOS: DATE: 12/03/20 TIME: 10:42 Chief Complaint Chief Complaint Chest pain Diabetes mellitus hypertension hyperlipidemia, end-stage renal disease hemodialysis dependent anemia of chronic kidney disease secondary hyperparathyroidism renal disease peripheral vascular disease left gnnyy-aew-qeci amputation depression. History of Present Illness History of Present Illness 12/03/20 Patient seen and examined. DWRN No stents placed in cardiac cath Chart reviewed 12/02/20 Patient seen and examined. DWRN Chart reviewed Vitals/I&O Vitals/I&O: Vital Signs Date Time Temp Pulse Resp B/P (MAP) Pulse Ox O2 Delivery O2 Flow Rate FiO2 12/03/20 08:53 76 126/73 12/03/20 07:50 98.2 18 98 Room Air 98.2 12/02/20 19:13 2.0 I & O 12/02/20 12/02/20 12/03/20 14:59 22:59 06:59 Intake Total 240 ml 60 ml Balance 240 ml 60 ml Physical Exam General: Alert, Oriented X3, Cooperative, mild distress Lungs: Clear, Other Abdomen: Normal bowel sounds, Soft, No tenderness, No hepatosplenomegaly, No masses Extremities: No clubbing, No cyanosis, No tenderness/swelling, Other (LLE BKA) Skin: No rashes, No breakdown, No significant lesion Labs Labs: Laboratory Tests Test 12/02/20 11:14 12/02/20 19:06 12/02/20 21:16 12/03/20 07:54 Glucose (Fingerstick) 91 mg/dL (70-99) 126 mg/dL (70-99) 185 mg/dL (70-99) 215 mg/dL (70-99) Test 12/03/20 10:00 Sodium Level 136 mmol/L (136-145) Potassium Level 5.5 mmol/L (3.5-5.1) Chloride Level 94 mmol/L (98-107) Carbon Dioxide Level 31 mmol/L (21-32) Anion Gap 11 (6-14) Blood Urea Nitrogen 57 mg/dL (8-26) Creatinine 9.9 mg/dL (0.7-1.3) Estimated GFR (Cockcroft-Gault) 5.9 Glucose Level 219 mg/dL (70-99) Calcium Level 9.8 mg/dL (8.5-10.1) Review of Systems Review of Systems: Denies chest pain or shortness of breath Assessment and Plan Assessmemt and Plan Problems Medical Problems: (1) Chest pain Status: Acute Chest pain Diabetes mellitus hypertension hyperlipidemia, end-stage renal disease hemodialysis dependent anemia of chronic kidney disease secondary hyperparathyroidism renal disease peripheral vascular disease left gytwm-wie-lfbm amputation depression. Plan Discharge today Medical management Home meds Full code Comment Review of Relevant I have reviewed the following items ching (where applicable) has been applied. Medications: Current Medications Medications (Trade) Dose Ordered Sig/Allison Route PRN Reason Start Time Stop Time Status Last Admin Dose Admin Heparin Sodium/ Sodium Chloride (HEPARIN for ARTERIAL LINE FLUSH) 1,000 unit 1X ONCE IART 12/02/20 13:30 12/02/20 13:56 DC 12/02/20 13:30 Heparin Sodium/ Sodium Chloride (HEPARIN for ARTERIAL LINE FLUSH) 1,000 unit 1X ONCE IART 12/02/20 13:30 12/02/20 13:56 DC 12/02/20 13:30 Midazolam HCl (Versed) 2 mg 1X ONCE IV 12/02/20 13:30 12/02/20 13:56 DC 12/02/20 13:42 Fentanyl Citrate (Fentanyl 2ml Vial) 100 mcg 1X ONCE IV 12/02/20 13:30 12/02/20 13:56 DC 12/02/20 13:42 Iodixanol (Visipaque 320) 100 ml 1X ONCE IART 12/02/20 13:30 12/02/20 13:56 DC 12/02/20 14:05 Lidocaine HCl (Lidocaine 1% 20ml Vial) 20 ml 1X ONCE INJ 12/02/20 13:30 12/02/20 13:56 DC 12/02/20 13:44 Justifications for Admission Chest Pain Indications Serious Diagnosis?: Yes Justification for admission: Chest pain may be indicative of potentially serious diagnosis/diagnoses Please state condition(s) which will require inpatient level of care for further evaluation and management. Other Justification PRATIBHA BRITO III DO Dec 03, 2020 10:46
[2020-12-03 10:55] VITALS: BP 119/76
--- NOTE | 2020-12-03 10:59 | SNU/HH DC ---
DISCHARGE WITH HOME HEALTH DISCHARGE INFORMATION: Final Diagnosis: Problems Medical Problems: (1) Chest pain Status: Acute Condition on Discharge: Stable CODE STATUS: Code Status: Full HOME HEALTH: Face to Face: I certify this patient is under my care and that I, or a nurse practitioner or physician's commercial assistant working with me, had a face to face encounter that meets the physician face to face encounter requirements with this patient on []. Medical Complications: Other (CAD multiple comorbidities) Correction For: Assess & Educate Safety RN For Eval/Treatment: Yes Physical Therapy For: Evalulation/Treatment Occupational Therapy For: Evaluation/Treatment Home Health Aide For: Self-care ENROLLMENT COUNSELOR For: Community Resources Pt Meets Homebound Status: Unsteady balance w/ amb, POST DISCHARGE ORDERS: Activity Instructions for Disc: Activity as tolerated Weight Bearing Status after Di: As tolerated DIET AFTER DISCHARGE: Cardiac CHECKS AFTER DISCHARGE: Checks after discharge: Check blood press - daily, Check blood sugar, ac/hs TREATMENT/EQUIPMENT ORDERS: Adaptive Equipment Issued: None CERTIFICATION STATEMENT: Certification Statement: Certification Statement: Based on the above finding, I certify that this patient is confined to the home and needs intermittent usp care, physical therapy and/or speech therapy, or continues to need occupational therapy.~ This patient is under my care, and I have initiated the establishment of the plan of care.~ This patient will be followed by myself or a community physician who will periodically review the plan of care. Home Meds Reported Medications Pantoprazole Sodium (PROTONIX ) 40 Mg Tablet.dr, 40 MG PO DAILYAC for GERD, TAB 03/27/20 Nifedipine (NIFEDIPINE ER) 30 Mg Tab.er.24, 1 TAB PO DAILY for htn, #90 TAB 1 Refill 03/27/20 Doxycycline Hyclate (DOXYCYCLINE HYCLATE) 50 Mg Capsule, 1 CAP PO BID for abx , #20 CAP 20 Ferric Citrate (Ferric Citrate) 210 Mg Tablet, 210 MG PO DAILY for supplement, TAB 20 Patiromer Calcium Sorbitex (Veltassa) 8.4 Gm Powd.pack, 8.4 GM PO DAILY for high K, PKT 03/27/20 Fluticasone Propionate (FLUTICASONE PROPIONATE NASAL SPRAY) 16 Gm [place].susp, 2 SPRAY NS DAILY for allergy, #1 INHALER 11 Refills 03/27/20 Insulin Detemir (LEVEMIR) 100 Unit/1 Ml Vial, 20 UNIT SQ HS for insulin, VIAL 12/03/18 Insulin Aspart (NOVOLOG) 100 Unit/1 Ml Cartridge, 6 UNIT SQ TIDWMEALS, EACH 05/12/18 Lisinopril (LISINOPRIL) 10 Mg Tablet, 1 TAB PO QMWF, #30 TAB 5 Refills 05/12/18 Atorvastatin Calcium (ATORVASTATIN CALCIUM) 40 Mg Tablet, 40 MG PO HS for FOR CHOLESTEROL, #30 TAB 0 Refills 05/12/18 Fenofibrate Nanocrystallized (FENOFIBRATE) 145 Mg Tablet, 1 TAB PO DAILY, #30 TAB 5 Refills 05/12/18 Duloxetine Hcl (CYMBALTA) 60 Mg Capsule.dr, 1 CAP PO DAILY, #90 CAP 3 Refills 05/12/18 Sevelamer Carbonate (RENVELA) 800 Mg Tablet, 2400 MG PO TIDWMEALS for binder, TAB 05/12/18 Ergocalciferol (Vitamin D2) (VITAMIN D2) 50,000 Unit Capsule, 1 CAP PO WEEKLY, #4 CAP 5 Refills 05/12/18 Tamsulosin Hcl (TAMSULOSIN HCL) 0.4 Mg Cap.er.24h, 1 CAP PO HS, #30 CAP 5 Refills 05/12/18 Metoprolol Tartrate (METOPROLOL TARTRATE) 25 Mg Tablet, 12.5 MG PO BID for FOR HYPERTENSION, #60 TAB 0 Refills 05/12/18 Aspirin (ASPIR 81) 81 Mg Tablet., 81 MG PO DAILY, TAB 05/26/14 PRATIBHA BRITO III DO Dec 03, 2020 10:59
--- NOTE | 2020-12-03 12:13 | DS ---
DATE OF DISCHARGE: 12/03/2020 ADMISSION DIAGNOSIS: Chest pain. DISCHARGE DIAGNOSES: Resolving chest pain, suspect possible chronic angina versus gastroesophageal reflux disease (he did have a cardiac catheterization, but no new stents had to be placed); history of diabetes; hypertension; hyperlipidemia; end-stage renal disease, on dialysis; anemia of chronic disease; hyperparathyroidism; peripheral vascular disease; left slold-mto-[id number] amputation and depression. CONSULTS: Cardiology. PROCEDURES: Cardiac catheterization. HOSPITAL COURSE: The patient is a pleasant middle-aged male, who presented with chest pain. We consulted Cardiology. He was taken to the construction laborer. He did have a normal EF at 55%. He had some mild acute on chronic diastolic heart failure with a left ventricular end-diastolic pressure of 18. He had 1-vessel coronary artery disease. Medical management was recommended. Clinically, he is doing well. This morning, I saw and examined him, he is up and talking and wants to go home. We plan to discharge. DISPOSITION: Home. ACTIVITY: As tolerated. DIET: Cardiac. MEDICATIONS: Please see the MRAD. TOTAL TIME: 32 minutes. PRATIBHA BRITO DO DR: ROMERO/shirin JOB#: [id number] / [id number]
--- NOTE | 2020-12-03 13:32 | PDOC ---
KIMBERLEE BORRERO HEAD TELLER 12/03/20 1332: CARDIO Progress Notes Date and Time Date of Service 12/03/2020 Time of Evaluation 0950 Subjective Subjective: No Chest Pain, No shortness of breath, No Palpitations Vitals Vitals Vital Signs Date Time Temp Pulse Resp B/P (MAP) Pulse Ox O2 Delivery O2 Flow Rate FiO2 12/03/20 10:55 98.2 95 18 119/76 (90) 97 Room Air 98.2 12/02/20 19:13 2.0 Weight Weight [ ] Input and Output Intake and Output Intake and Output 12/03/20 07:00 Intake Total 300 ml Balance 300 ml Intake Oral 300 ml Laboratory Labs Laboratory Tests Test 12/02/20 19:06 12/02/20 21:16 12/03/20 07:54 12/03/20 10:00 Glucose (Fingerstick) 126 mg/dL (70-99) 185 mg/dL (70-99) 215 mg/dL (70-99) Sodium Level 136 mmol/L (136-145) Potassium Level 5.5 mmol/L (3.5-5.1) Chloride Level 94 mmol/L (98-107) Carbon Dioxide Level 31 mmol/L (21-32) Anion Gap 11 (6-14) Blood Urea Nitrogen 57 mg/dL (8-26) Creatinine 9.9 mg/dL (0.7-1.3) Estimated GFR (Cockcroft-Gault) 5.9 Glucose Level 219 mg/dL (70-99) Calcium Level 9.8 mg/dL (8.5-10.1) Test 12/03/20 11:40 Glucose (Fingerstick) 143 mg/dL (70-99) Physical Exam HEENT: Neck Supple W Full Motion Chest: Symmetric Heart: S1S2, RRR (SR) Abdomen: Soft N/T Extremities: No Calf Tenderness Neurology: alert, oriented, follow commands Assessment Assessment 1. Chest pain: possible UA prompting LHC, result below 2. CAD: LHC revealed ramus is a small caliber vessel with a proximal 100% occlusion, the distal vessel is seen to fill via left to left collaterals. Mild LAD disease 3. Acute on chronic diastolic CHF: compensated. EF at 55% 5. ESRD 6. Anemia of chronic disease 7. DM2 8. HTN: controlled 9. HLP 10. Renal transplant candidate: follows up with [facility] Recommendations 1. ASA, statin, continue with secondary prevention measures 2. Fluid off loading per HD 3. Follow up in office as scheduled Justicifation of Admission Dx: Justifications for Admission: Justification of Admission Dx: N/A ISABELLA STEELE MD 12/03/20 1407: CARDIO Progress Notes Plan Plan Pt. seen and examined. Agree with above [employer] MATH TUTOR note. Supportive care. KIMBERLEE BORRERO APRN Dec 03, 2020 13:32 ISABELLA STEELE MD Dec 03, 2020 14:07
[2020-12-03 14:56] VITALS: BP 107/73
--- NOTE | 2020-12-03 17:05 | NUR ---
Discharge Note: MARY RUIZ Discharge instructions and discharge home medications reviewed with Patient and a copy given. All questions have been answered and understanding verbalized
== END 2020-12-03 16:45 | disposition home or self-care (01) | DRG 286 ==
LOC: ER 17:51 → 2 SOUTH 19:34 → 2 NORTH 20:30
PROVIDERS: ADMIT Internal Medicine; ATTEND Internal Medicine
PROC: B2111ZZ Fluoroscopy of Multiple Coronary Arteries using Low Osmolar Contrast (ICD-10-PCS; principal; 2020-12-02)
PROC: B2151ZZ Fluoroscopy of Left Heart using Low Osmolar Contrast (ICD-10-PCS; 2020-12-02)
PROC: 4A023N7 Measurement of Cardiac Sampling and Pressure, Left Heart, Percutaneous Approach (ICD-10-PCS; 2020-12-02)
PROC: 5A1D70Z Performance of Urinary Filtration, Intermittent, Less than 6 Hours Per Day (ICD-10-PCS; 2020-12-02)
DX: I13.2 Hypertensive heart and chronic kidney disease with heart failure and with stage 5 chronic kidney disease, or end stage renal disease (principal); N18.6 End stage renal disease; I50.33 Acute on chronic diastolic (congestive) heart failure; N25.81 Secondary hyperparathyroidism of renal origin; I12.0 Hypertensive chronic kidney disease with stage 5 chronic kidney disease or end stage renal disease; K21.9 Gastro-esophageal reflux disease without esophagitis; I25.118 Atherosclerotic heart disease of native coronary artery with other forms of angina pectoris; D63.1 Anemia in chronic kidney disease; E10.22 Type 1 diabetes mellitus with diabetic chronic kidney disease; E10.51 Type 1 diabetes mellitus with diabetic peripheral angiopathy without gangrene; E66.01 Morbid (severe) obesity due to excess calories; E78.00 Pure hypercholesterolemia, unspecified; E78.5 Hyperlipidemia, unspecified; E66.9 Obesity, unspecified; Z20.822 Contact with and (suspected) exposure to COVID-19; E87.5 Hyperkalemia; E21.3 Hyperparathyroidism, unspecified; F32.9 Major depressive disorder, single episode, unspecified; Z79.4 Long term (current) use of insulin; Z86.14 Personal history of Methicillin resistant Staphylococcus aureus infection; Z89.512 Acquired absence of left leg below knee; Z99.2 Dependence on renal dialysis; Z87.01 Personal history of pneumonia (recurrent); Z82.49 Family history of ischemic heart disease and other diseases of the circulatory system; Z68.30 Body mass index [BMI] 30.0-30.9, adult
CPT/HCPCS: 93458; 96374; 96375; 96376; 99285; G0269; 36415; 71045; 80048; 80053; 82962; 83036; 83735; 83880; 84443; 84484; 85025; 85610; 85730; 87340; 87426; 93005; 99152; 99153; C1760; C1769; C1892; J1644; J1815; J2250; J2270; J3010; J3490; Q9967; U0003; C1771; G0378